=== PATIENT | female | born 1960 | race Asian ===

== ENCOUNTER 2017-03-04 21:39 | Emergency (ER) | payer OTHER ==
[~2017-03-04] VITALS: Ht 157.5 cm; Wt 54.4 kg
--- NOTE | 2017-03-04 21:40 | NUR ---
to bed 1 bib private ambulance from [facility] sent by pmd due to pt vomitted x1 per transport emt report. pt aaox2. pt chronic trache, O2@4L/ trache tube. no acute distress noted, resp even and unlabored. place pt on cardiac monitoring, continuous pox. pending er md edwards. skin warm, nondiaphoretic.
[2017-03-04 22:41] LABS: BASOPHILS % (AUTO) 0.2 % (0.0-2.0); HEMATOCRIT 28 % (33-45); HEMOGLOBIN 8.9 g/dL (11.5-14.8); LYMPHOCYTES # (AUTO) 0.7 /CMM (0.8-4.8); LYMPHOCYTES % (AUTO) 3.4 % (20.0-44.0); MEAN CORPUSCULAR HEMOGLOBIN 26 PG (26.0-33.0); MEAN CORPUSCULAR HGB CONC 32 g/dl (31.0-36.0); MEAN CORPUSCULAR VOLUME 80 fL (82-100); MONOCYTES % (AUTO) 10.6 % (2.0-12.0); NEUTROPHILS # (AUTO) 16.3 /CMM (1.8-8.9); NEUTROPHILS % (AUTO) 85.8 % (43.0-81.0); PLATELET COUNT (AUTO) 578 /CMM (150-450); RDW COEFFICIENT OF VARIATION 16.2 (11.5-15.0); RED BLOOD CELL COUNT(AUTO) 3.45 MIL/uL (4.0-5.2)
[2017-03-04 22:51] LABS: CALCIUM, SERUM 8.6 mg/dL (8.5-10.1); CREATININE 2.8 mg/dL (0.6-1.3); POTASSIUM 4.4 mmol/L (3.5-5.1)
[2017-03-04 22:54] LABS: INR 0.95 (0.87-1.13); PROTHROMBIN TIME 10.1 SECS (9.5-12.7)
[2017-03-04 22:56] LABS: ALBUMIN 2.6 g/dL (3.4-5.0); BILIRUBIN,DIRECT 0.1 mg/dL (0.0-0.2); BILIRUBIN,TOTAL 0.3 mg/dL (0.2-1.0); TOTAL PROTEIN, SERUM 7.9 g/dL (6.4-8.2)
[2017-03-04 23:09] LABS: BAND % (MANUAL) 5 % (0.0-5.0); LYMPHOCYTES % (MANUAL) 9 % (16-48); MONOCYTES % (MANUAL) 8 % (0-11.0); NEUTROPHILS % (MANUAL) 78 (42-76)
[2017-03-04 23:39] LABS: APPEARANCE,URINE CLOUDY (CLEAR); COLOR,URINE RED (YELLOW)
[2017-03-04 23:40] LABS: PH,URINE 7.5 (5.0-8.0); PROTEIN,URINE 2+ mg/dl (NEGATIVE); UGLUCOSE NEGATIVE (NEGATIVE)
[2017-03-04 23:41] LABS: BILIRUBIN,URINE NEGATIVE (NEGATIVE); BLOOD, URINE 3+ Ery/uL (NEGATIVE); KETONES,URINE NEGATIVE (NEGATIVE); UROBILINOGEN,URINE NORMAL EU/dL (0.2)
[2017-03-04 23:42] LABS: LEUKOCYTE ESTERASE ,URINE 3+ (NEGATIVE); NITRITE, URINE NEGATIVE (NEGATIVE)
[2017-03-04 23:44] LABS: RBC,URINE TOO NUMEROUS TO COUN /HPF (0-2)
[2017-03-04 23:45] LABS: BACTERIA,URINE Few /HPF (None Seen); SQUAMOUS EPITHELIAL CELL,UR Few /HPF (None Seen); WBC,URINE 51-80 /HPF (0-3)
[2017-03-05] MEDS ORDERED: LEVOFLOXACIN 750 MG /D5W 150ML PIGGYBACK IV ONE
--- NOTE | 2017-03-05 00:01 | NUR ---
PAGED DOCTOR SOAP MAKER FOR DOCTOR CAMPBELL STEARNS
--- NOTE | 2017-03-05 00:02 | NUR ---
er talking to dr. coppola regarding pt and advice to discharge [facility].
--- NOTE | 2017-03-05 00:06 | NUR ---
CALLED [facility] FOR BLS TRANSPORT ETA 30 MINUTES
[2017-03-05] MEDS ORDERED: LEVOFLOXACIN (750 MG) 750 MG TABLET ONE (00:09)
[2017-03-05] MEDS: LEVOFLOXACIN (750 MG) 750 MG TABLET GT SCH (00:15)
--- NOTE | 2017-03-05 00:50 | NUR ---
IV removed. Catheter intact and site benign. Pressure and 4x4 applied to site. No bleeding noted.
[2017-03-05 00:54] VITALS: BP 116/66
--- NOTE | 2017-03-05 00:56 | NUR ---
report called to [facility] staff edmundo. report given to [facility] emt transport.
== END 2017-03-05 00:57 | disposition home or self-care (01) ==
LOC: ER 21:46
DX: N12 Tubulo-interstitial nephritis, not specified as acute or chronic (principal); D72.829 Elevated white blood cell count, unspecified; I10 Essential (primary) hypertension; F25.9 Schizoaffective disorder, unspecified; E11.8 Type 2 diabetes mellitus with unspecified complications; J96.10 Chronic respiratory failure, unspecified whether with hypoxia or hypercapnia
CPT/HCPCS: 36415; 71010; 80048; 80076; 81001; 83690; 84484; 85025; 85730; 87086; 87186; 93005; 99285; A4606; Z7610; 81000-TC

== ENCOUNTER 2017-06-12 11:16 | Inpatient (IN) | payer OTHER ==
[~2017-06-12] VITALS: Ht 152.4 cm; Wt 37.2 kg
[2017-06-12] VITALS (37 sets, daily range): BP systolic 63–136; BP diastolic 38–72
--- NOTE | 2017-06-12 11:20 | NUR ---
NOMI FROM [facility] DT LOW BLOOD PRESSURE AND EPISODES OF LOW O2 SATURATION. PATIENT IS RECEIVED AWAKE, NON VERBAL. APPEARS IN NO APPARENT DISTRESS. O2 DEPENDEDNT THRU TRACHEOSTOMY. GT NOTED INTACT. VSS
--- NOTE | 2017-06-12 11:35 | NUR ---
BARREL ROLLER OPERATOR AT BS
--- NOTE | 2017-06-12 11:36 | NUR ---
( 16) FR STRAIGHT catheter inserted per sterile protocal. Immediate output (200 )ML of urine, color (YELLOW ), clarity (CLEAR)
[2017-06-12 11:39] LABS: APPEARANCE,URINE Cloudy (CLEAR); BILIRUBIN,URINE Negative (NEGATIVE); BLOOD, URINE Moderate Ery/uL (NEGATIVE); COLOR,URINE Yellow (YELLOW); KETONES,URINE Negative (NEGATIVE); LEUKOCYTE ESTERASE ,URINE Large (NEGATIVE); NITRITE, URINE Negative (NEGATIVE); PH,URINE 6.5 (5.0-8.0); PROTEIN,URINE 30 mg/dl (NEGATIVE); UGLUCOSE Negative (NEGATIVE); UROBILINOGEN,URINE 0.2 EU/dL (0.2)
[2017-06-12] MEDS ORDERED: INSU100I26 SQ (11:46)
[2017-06-12] MEDS ORDERED: IPRA3AMP IH ×2 (11:46)
[2017-06-12] MEDS ORDERED: LABE100T GT (11:46)
[2017-06-12] MEDS ORDERED: FENO145T GT (11:46)
[2017-06-12] MEDS ORDERED: MAGN400O6 GT (11:46)
[2017-06-12] MEDS ORDERED: ASCO500S2 GT (11:46)
[2017-06-12] MEDS ORDERED: PRAV40TA3 GT (11:46)
[2017-06-12] MEDS ORDERED: ACET650S26 GT (11:46)
[2017-06-12] MEDS ORDERED: NUT.237L30 GT (11:46)
[2017-06-12] MEDS ORDERED: FOLI1TAB16 GT (11:46)
[2017-06-12] MEDS ORDERED: CHOL100044 GT (11:46)
[2017-06-12] MEDS ORDERED: NA P133E RC (11:46)
[2017-06-12] MEDS ORDERED: VITA1TAB56 GT (11:46)
[2017-06-12] MEDS ORDERED: FERR300L GT (11:46)
[2017-06-12] MEDS ORDERED: ASPI81TA2 GT (11:46)
[2017-06-12] MEDS ORDERED: BISA10SU8 RC (11:46)
[2017-06-12] MEDS ORDERED: BENA10TA2 GT (11:46)
[2017-06-12 12:11] LABS: ALANINE AMINOTRANSFERASE 22 U/L (12-78); ALBUMIN 1.8 g/dL (3.4-5.0); ALKALINE PHOSPHATASE 81 U/L (46-116); ASPARTATE AMINOTRANSFERASE 37 U/L (15-37); BILIRUBIN,DIRECT 0.1 mg/dL (0.0-0.2); BILIRUBIN,TOTAL 0.2 mg/dL (0.2-1.0); CARBON DIOXIDE 21 mmol/L (21-32); CHLORIDE 96 mmol/L (98-107); CREATININE 3.2 mg/dL (0.6-1.3); GLUCOSE 102 mg/dL (74-106); POTASSIUM 4.3 mmol/L (3.5-5.1); SODIUM SERUM 130 mmol/L (136-145); TOTAL PROTEIN, SERUM 6.3 g/dL (6.4-8.2); UREA NITROGEN, BLOOD 50 mg/dL (7-18)
[2017-06-12 12:13] LABS: TROPONIN I < 0.017 ng/mL (0.00-0.056)
[2017-06-12 12:18] LABS: BACTERIA,URINE Many /HPF (None Seen); SQUAMOUS EPITHELIAL CELL,UR Moderate /HPF (None Seen); WBC,URINE TOO NUMEROUS TO COUN /HPF (0-3)
[2017-06-12 12:31] LABS: LYMPHOCYTES # (AUTO) 1.2 /CMM (0.8-4.8); LYMPHOCYTES % (AUTO) 2.2 % (20.0-44.0); MEAN CORPUSCULAR HEMOGLOBIN 26 PG (26.0-33.0); MEAN CORPUSCULAR HGB CONC 32 g/dl (31.0-36.0); MEAN CORPUSCULAR VOLUME 82 fL (82-100); MONOCYTES # (AUTO) 1.2 /CMM (0.1-1.30); MONOCYTES % (AUTO) 2.3 % (2.0-12.0); NEUTROPHILS # (AUTO) 49.3 /CMM (1.8-8.9); NEUTROPHILS % (AUTO) 95.5 % (43.0-81.0); PLATELET COUNT (AUTO) 651 /CMM (150-450); RDW COEFFICIENT OF VARIATION 16.5 (11.5-15.0); RED BLOOD CELL COUNT(AUTO) 2.41 MIL/uL (4.0-5.2)
[2017-06-12 12:41] LABS: HEMATOCRIT 20 % (33-45); HEMOGLOBIN 6.3 g/dL (11.5-14.8); WHITE BLOOD COUNT (AUTO) 51.6 K/uL (4.3-11.0)
[2017-06-12 12:59] LABS: BAND % (MANUAL) 6 % (0.0-5.0); LYMPHOCYTES % (MANUAL) 3 % (16-48); MONOCYTES % (MANUAL) 4 % (0-11.0); NEUTROPHILS % (MANUAL) 87 (42-76)
--- NOTE | 2017-06-12 13:00 | NUR ---
CALLED DR CAMPBELL WALTER OFFICE, WAS PAGED.
[2017-06-12 13:05] LABS: INR 1.17 (0.87-1.13); PROTHROMBIN TIME 12.3 SECS (9.5-12.7)
--- NOTE | 2017-06-12 13:52 | NUR ---
PAGED DR MALCOLM FOR ADMISSION
--- NOTE | 2017-06-12 14:22 | NUR ---
CALLED [facility]G SUP NELIDA FOR PICC
--- NOTE | 2017-06-12 14:23 | NUR ---
GAVE REPORT TO [facility] ICU ROOM [address] CHARLES ADMITTING
--- NOTE | 2017-06-12 15:10 | NUR ---
ICU INITIAL NOTE RECEIVED REPORT FROM ER, RECEIVED PT AWAKE, A/O X SELF, ABLE TO FOLLOW SIMPLE COMMANDS, PT IS ON COOL AEROSOL 28%, PORTEX # 7, SATING WELL, PT IS ON BEDSIDE MONITOR SHOWING ST, NO C/O OF CHEST PAIN OR DISCOMFORT AT THIS TIME, PT HAS GTUBE INTACT/PATENT, FLUSHING WELL, NPO AT THIS TIME, PT IS NOTED WITH SKIN ISSUES, PHOTOS TAKEN AND PUT IN CHART, PT HAS R WRIST #20G,SL L HAND #22G, SL, C/D/I/PATENT,FLUSHING WELL, NO S/S OF INFECTION/ INFILTRATION NOTED AT THIS TIME, PER MD ORDER NO SCD,ALL SAFETY MEASURES IN PLACE AT ALL TIMES, CALL LIGHT WITHIN EASY REACH, WILL MONITOR PT CLOSELY FOR CHANGES
--- NOTE | 2017-06-12 16:00 | NUR ---
ICU NOTE CONSENT OBTAINED FROM MIRIAN HANSON PER TELEPHONE, PT UNABLE TO GIVE CONSENT
[2017-06-12 17:09] LABS: ABG BASE EXCESS -5.6 mmol/L; ABG OXYGEN SATURATION 97.6 % (92.0-98.5); ABG PCO2 31.7 mmHg (35.0-45.0); ABG PO2 111.2 mmHg (75.0-100.0); COHb 0.9 % (0.5-1.5); MetHb 1.3 % (0.0-1.5); O2Hb 95.5 % (94.0-97.0); SITE, ABG Right Brachial; VENT MODE, BG 28% COOL AEROSOL
[2017-06-12 18:15] LABS: BASOPHILS % (AUTO) 0.1 % (0.0-2.0); EOSINOPHILS % (AUTO) 0.4 % (0.0-6.0); HEMATOCRIT 23 % (33-45); LYMPHOCYTES # (AUTO) 1.3 /CMM (0.8-4.8); LYMPHOCYTES % (AUTO) 15.5 % (20.0-44.0); MEAN CORPUSCULAR HEMOGLOBIN 26 PG (26.0-33.0); MEAN CORPUSCULAR HGB CONC 31 g/dl (31.0-36.0); MEAN CORPUSCULAR VOLUME 83 fL (82-100); MONOCYTES % (AUTO) 0.3 % (2.0-12.0); NEUTROPHILS % (AUTO) 83.7 % (43.0-81.0); PLATELET COUNT (AUTO) 706 /CMM (150-450); RDW COEFFICIENT OF VARIATION 17.1 (11.5-15.0); RED BLOOD CELL COUNT(AUTO) 2.74 MIL/uL (4.0-5.2); WHITE BLOOD COUNT (AUTO) 8.3 K/uL (4.3-11.0)
--- NOTE | 2017-06-12 18:49 | NUR ---
ICU NOTE PT TEMP 101.5 ORAL, ADMINISTERED TYLENOL, COOLING MEASURES IN PLACE, WILL MONITOR CLOSELY
--- NOTE | 2017-06-12 20:00 | NUR ---
TUBING MILL SETTER RCD ORDER FROM DR CARLSON TO INSERT CENTRAL LINE PICC LINE WAS UNABLE TO BE INSERTED D/T BLOACKAGE; PROCEED WITH 2 UNITS PRBC ONCE READY; PENDING D/T ANTIBODIES.
[2017-06-13] VITALS (88 sets, daily range): BP systolic 78–142; BP diastolic 30–73
--- NOTE | 2017-06-13 03:15 | NUR ---
GLASS ETCHER HELPER TWO UNITS PRBC ADMINISTERED; PT TOLERATED WELL. CONTINUE TO MONITOR.
[2017-06-13 04:45] LABS: HEMATOCRIT 29 % (33-45); HEMOGLOBIN 9.4 g/dL (11.5-14.8); LYMPHOCYTES # (AUTO) 0.8 /CMM (0.8-4.8); LYMPHOCYTES % (AUTO) 1.6 % (20.0-44.0); MEAN CORPUSCULAR HEMOGLOBIN 28 PG (26.0-33.0); MEAN CORPUSCULAR HGB CONC 33 g/dl (31.0-36.0); MEAN CORPUSCULAR VOLUME 84 fL (82-100); MONOCYTES # (AUTO) 0.5 /CMM (0.1-1.30); NEUTROPHILS # (AUTO) 48.5 /CMM (1.8-8.9); NEUTROPHILS % (AUTO) 97.4 % (43.0-81.0); PLATELET COUNT (AUTO) 440 /CMM (150-450); RDW COEFFICIENT OF VARIATION 15.9 (11.5-15.0); RED BLOOD CELL COUNT(AUTO) 3.42 MIL/uL (4.0-5.2)
[2017-06-13 05:19] LABS: WHITE BLOOD COUNT (AUTO) 49.8 K/uL (4.3-11.0)
[2017-06-13 05:29] LABS: ALANINE AMINOTRANSFERASE 24 U/L (12-78); ALBUMIN 1.6 g/dL (3.4-5.0); ALKALINE PHOSPHATASE 94 U/L (46-116); ASPARTATE AMINOTRANSFERASE 41 U/L (15-37); BILIRUBIN,TOTAL 0.6 mg/dL (0.2-1.0); CALCIUM, SERUM 7.4 mg/dL (8.5-10.1); CARBON DIOXIDE 17 mmol/L (21-32); CHLORIDE 102 mmol/L (98-107); CREATININE 3.1 mg/dL (0.6-1.3); GLUCOSE 116 mg/dL (74-106); POTASSIUM 3.6 mmol/L (3.5-5.1); SODIUM SERUM 136 mmol/L (136-145); TOTAL PROTEIN, SERUM 6.1 g/dL (6.4-8.2); UREA NITROGEN, BLOOD 48 mg/dL (7-18)
[2017-06-13 05:42] LABS: BAND % (MANUAL) 16 % (0.0-5.0); LYMPHOCYTES % (MANUAL) 4 % (16-48); MONOCYTES % (MANUAL) 5 % (0-11.0); NEUTROPHILS % (MANUAL) 75 (42-76)
--- NOTE | 2017-06-13 05:48 | NUR ---
RN;ICU: PT RECEIVED TWO UNITS OF PRBC'S PER MD ORDERS FROM ER, WHICH WAS ALSO DISCUSSED WITH ADMITTING MD, WHO AGREES WITH STAT 2 UNITS OF PRBC (ACTIVE BLEED). MD ALSO AWARE OF POSITIVE STOOL OB RESULT. MD ORDERS FOLLOWED. PT RESPONDED WELL TO 2 UNIT PRBC, WITH IMPROVED HGB/HCT, HR SINUS RHYTHM AND BLOOD PRESSURE WNL ON MINIMAL LEVOPHED. ABLE TO WEAN OFF LEVOPHED PER PROTOCOL PT BP PERMITS. PT NOW ON LEVOPHED 12MCG/MIN. DR BLACKWOOD AWARE OF AM LABS. WILL CONTINUE TO MONITOR CLOSELY. FIRST UNIT OF PRBC UNABLE TO SCAN BARCODE IN EMR. BLOOD BANK STAFF MEMBER MAYRA CONTACTED AND MADE AWARE THAT BARCODE WILL NOT SCAN AND THAT THIS IS THE CORRECT UNIT VERIFIED BY TWO RN AT THE BEDSIDE WITH THE PATIENT. PER BLOOD BANK STAFF OK TO PERFORM OVERRIDE. BLOOD PRODUCT CHECKED AGAIN SEVERAL TIMES WITH PATIENT TO ENSURE PATIENT SAFETY. NO RX NOTED. PT TOLERATED PROCEDURE WELL.
--- NOTE | 2017-06-13 06:45 | NUR ---
PRODUCT OPERATIONS ASSOCIATE NO BLEEDING NOTED THROUGHOUT SHIFT.
[2017-06-13 07:20] LABS: TROPONIN I 0.192 ng/mL (0.00-0.056)
[2017-06-13 07:27] LABS: THYROID STIMULATING HORMONE 1.103 uIU/mL (0.358-3.74)
--- NOTE | 2017-06-13 07:34 | NUR ---
INITIAL GASOLINE TESTER NOTE RCVD PT RESPONSIVE TO PAINFUL STIMULI, SHOWING NO S/O DISTRESS/PAIN. SR ON TELE. T-PIECE IN PLACE WITH GOOD SATURATION. PALM IN PLACE DRAINING YELLOW URINE, PEG CLAMPED PLACEMENT VERIFIED BY AUSCULTATION/ASPIRATION. NO RESIDUAL OBSERVED. IV SITES C/D/I/PATENT. NO S/O INFILTRATION/PHLEBITIS OBSERVED IVF INFUSING. DRESSING ON MAU AND RIGHT GROIN AREA APPEAR BLOODY WILL MONITOR PT FOR BLEEDING. BED IN LOW AND LOCKED POSITION.
--- NOTE | 2017-06-13 07:50 | NUR ---
D/W DR BLACKWOOD QUESTION OF BICARB IV WHICH MD WANTS TO ORDER-WILL GET ABG AND D/W I.M. PH. WILL GET PULMON CONSULT. HAS BLACK BMS WITH KNOWN ANEMIA AND OCCULT BLOOD POSITVE STOOLS THEREFORE WILL CHECK ANOTHER STOOL FOR OB AND CHANGE KCL VIA PEG TO IVPB ROUTE. D/W LAB THE WBC RESULT INCONSISTENCIES-TECH TO RECHECK WBC RESULTS
[2017-06-13 08:03] LABS: IRON, SERUM 4 ug/dl (50-175); TOTAL IRON BINDING CAPACITY 204 ug/dl (250-450)
[2017-06-13 09:08] LABS: ABG BASE EXCESS -10.8 mmol/L; ABG OXYGEN SATURATION 97.6 % (92.0-98.5); ABG PCO2 25.7 mmHg (35.0-45.0); ABG PH 7.341 (7.350-7.450); ABG PO2 109.9 mmHg (75.0-100.0); AaDO2 59.4 mmHg; MetHb 0.8 % (0.0-1.5); O2Hb 96.8 % (94.0-97.0); SITE, ABG Left Radial; VENT MODE, BG 28% COOL AEROSOL
--- NOTE | 2017-06-13 09:10 | NUR ---
ABG ON T-TUBE/TRACH WITH PH 7.34 PCO2 26 PO2 110-WILL D/W I.M.
--- NOTE | 2017-06-13 09:17 | NUR ---
D/W DR GOLD MODI, ANION GAP 21. SEE ORDERS
--- NOTE | 2017-06-13 10:08 | NUR ---
EXTRACTOR PLANT OPERATOR NOTE DR. PHILLIPS IN UNIT INFORMED HIM THAT WHEEZING HEARD ON PT. BOLUS CONTINUED TO INFUSE PER DR. BLACKWOOD'S ORDER. PER DR. PHILLIPS STOP BOLUS AND CHANGE IVF TO LR. WILL CARRY ON ORDERS. ABG STABLE
--- NOTE | 2017-06-13 14:34 | NUR ---
RN NOTES RECEIVED A CALL FROM JOSE ([place]) REGARDING MICROBIOLOGY RESULT, PT POSITIVE FOR MRSA NARES. DR. MALCOLM NOTIFIED AND ORDER MADE.
[2017-06-13 16:07] LABS: APPEARANCE,URINE CLOUDY (CLEAR); BILIRUBIN,URINE NEGATIVE (NEGATIVE); BLOOD, URINE 3+ Ery/uL (NEGATIVE); COLOR,URINE YELLOW (YELLOW); KETONES,URINE NEGATIVE (NEGATIVE); LEUKOCYTE ESTERASE ,URINE 3+ (NEGATIVE); NITRITE, URINE NEGATIVE (NEGATIVE); PH,URINE 7.5 (5.0-8.0); PROTEIN,URINE TRACE mg/dl (NEGATIVE); UGLUCOSE NEGATIVE (NEGATIVE); UROBILINOGEN,URINE 0.2 EU/dL (0.2)
[2017-06-13 16:37] LABS: CREATININE, URINE 14.3 MG/DL (30.0-125.0); URINE TOTAL PROTEIN 59.6 mg/dL (0-11.9)
--- NOTE | 2017-06-13 18:28 | NUR ---
EMERGENCY MEDICINE PHYSICIAN NOTE PT REMAINS STABLE, TOLERATING T-PIECE, PALM DRAINING YELLOW URINE, G-TUBE PLACEMENT VERIFIED. CENTRAL LINE AND MIDLINE DRESSINGS CHANGED. IV SITES C/D/I/PATENT. NO S/O INFILTRATION/PHLEBITIS OBSERVED IVF INFUSING. PT REMAINS ON VASOPRESSORS. PT'S CARE WILL BE ENDORSED TO CANDY SPREADER RN FOR CONTINUITY OF CARE.
[2017-06-13 19:01] LABS: BACTERIA,URINE 4+ /HPF (None Seen); RBC,URINE 21-50 /HPF (0-2); SQUAMOUS EPITHELIAL CELL,UR 0-2 /HPF (None Seen); WBC,URINE 21-50 /HPF (0-3)
[2017-06-13 19:02] LABS: EOSINOPHIL,URINE None Seen
--- NOTE | 2017-06-13 19:53 | NUR ---
STUDY COORDINATOR. INITIAL ASSESSMENT. RECEIVED THE PT REST ON THE BED. TRACH INTACT. NON VERBAL. OPEN EYES. DOES NOT FOLLOW COMMANDS. PORTEX#7. OXYGEN T TUBE 28%. SAT 98%. NO ACUTE DISTRESS NOTED. DEAN OF STUDENT SERVICES SHOWING NSR. IV RT FEMORAL TRIPLE LUMEN LEVOPHED 4MCG/MIN, LR 150ML/H. HOB ELEVATED. GT CLAMPED/ NPO. FC PATENT. URUINE DRAINING. TURN AND REPOSITION Q2H. WILL CONTINUE TO MONITOR VITALS.
[2017-06-14] VITALS (49 sets, daily range): BP systolic 81–133; BP diastolic 44–105
--- NOTE | 2017-06-14 03:25 | NUR ---
INDUSTRIAL MAINTENANCE MILLWRIGHT. AM CARE. ORAL CARE, BED BATH GIVEN. LINEN CHANGED, REMAINING SAME OXYGEN TOLERATED WELL. SAT 98%. NO ACUTE DISTRESS NOTED. GALVANIZER SHOWING NSR. IV RT FEMORAL TRIPLE LUMEN. IVF RL 150ML/H, LEVOPHED 2MCG/MIN. GT CLAMPED. NPO. AFEBRILE. HOB ELEVATED. FC PATENT. URINE DRAINING. TURN AND REPOSITION Q2H. WILL CONTINUE TO MONITOR VITALS.
[2017-06-14 04:51] LABS: HEMATOCRIT 27 % (33-45); HEMOGLOBIN 9.1 g/dL (11.5-14.8); LYMPHOCYTES # (AUTO) 0.9 /CMM (0.8-4.8); LYMPHOCYTES % (AUTO) 2.4 % (20.0-44.0); MEAN CORPUSCULAR HEMOGLOBIN 27 PG (26.0-33.0); MEAN CORPUSCULAR HGB CONC 33 g/dl (31.0-36.0); MEAN CORPUSCULAR VOLUME 83 fL (82-100); MONOCYTES # (AUTO) 0.1 /CMM (0.1-1.30); MONOCYTES % (AUTO) 0.2 % (2.0-12.0); NEUTROPHILS # (AUTO) 37.3 /CMM (1.8-8.9); NEUTROPHILS % (AUTO) 97.4 % (43.0-81.0); PLATELET COUNT (AUTO) 353 /CMM (150-450); RDW COEFFICIENT OF VARIATION 17.3 (11.5-15.0)
[2017-06-14 05:10] LABS: ALBUMIN 1.5 g/dL (3.4-5.0); BILIRUBIN,TOTAL 0.3 mg/dL (0.2-1.0); CALCIUM, SERUM 7.9 mg/dL (8.5-10.1); CREATININE 2.5 mg/dL (0.6-1.3); MAGNESIUM 2.2 mg/dL (1.8-2.4); PHOSPHORUS 3.8 mg/dL (2.5-4.9); POTASSIUM 4.9 mmol/L (3.5-5.1)
[2017-06-14 05:15] LABS: THYROID STIMULATING HORMONE 1.464 uIU/mL (0.358-3.74); URIC ACID 7.5 mg/dL (2.6-7.2)
[2017-06-14 05:18] LABS: WHITE BLOOD COUNT (AUTO) 38.3 K/uL (4.3-11.0)
[2017-06-14 05:33] LABS: TROPONIN I 4.941 ng/mL (0.00-0.056)
[2017-06-14 06:04] LABS: BAND % (MANUAL) 28 % (0.0-5.0); LYMPHOCYTES % (MANUAL) 3 % (16-48); METAMYELOCYTES % 3 % (0-0); MYELOCYTES % 6 % (0-0); NEUTROPHILS % (MANUAL) 60 (42-76)
--- NOTE | 2017-06-14 06:51 | NUR ---
JOB TRAINING SUPERVISOR. PT BLOOD SUGAR 55. 50% DEXTROSE IVP . 30MIN LATER BLOOD SUGAR WAS 158. WILL CONTINUE TO MONITOR.
--- NOTE | 2017-06-14 07:35 | NUR ---
ALLIANCE MANAGER RECEIVED PATIENT FROM THE PREVIOUS SHIFT. PATIENT IS IN BED. RESTING COMFORTABLY. NO ACUTE DISTRESS NOTED. AFEBRILE. ON COOL AEROSOL. LEVOPHED AT 4 MCG AT THIS TIME. SINUS RHYTHM ON MONITOR. ALERT AND AWAKE X 3. WILL CONTINUE TO MONITOR AND PROVIDE CARE.
--- NOTE | 2017-06-14 20:00 | NUR ---
HISTORY TEACHER - NOTES - RECEIVED PATIENT FROM THE PREVIOUS SHIFT. PATIENT IS IN BED. RESTING COMFORTABLY. NO ACUTE DISTRESS NOTED. AFEBRILE. ON COOL AEROSOL. SINUS RHYTHM ON MONITOR. ALERT AND AWAKE X 3. WILL CONTINUE TO MONITOR AND PROVIDE CARE.
[2017-06-15] VITALS (58 sets, daily range): BP systolic 81–159; BP diastolic 44–85
--- NOTE | 2017-06-15 | NUR ---
PT STARTED TO BECOME MORE TACHYCARDIC AND IS COUGHING A LOT, PT WAS SUCTIONED MULTIPLE TIMES, WITH MINIMAL SECRETIONS. PT REPOSITIONED FOR COMFORT, WILL GIVE FULL BED BATH
[2017-06-15 02:49] LABS: ABG BASE EXCESS -8.6 mmol/L; ABG OXYGEN SATURATION 95.1 % (92.0-98.5); ABG PH 7.429 (7.350-7.450); ABG PO2 76.9 mmHg (75.0-100.0); AaDO2 96.8 mmHg; COHb 0.3 % (0.5-1.5); MetHb 1.1 % (0.0-1.5); O2Hb 93.8 % (94.0-97.0); SITE, ABG Left Radial; VENT MODE, BG COOL AEROSOL
--- NOTE | 2017-06-15 04:00 | NUR ---
FULL CHG BED BATH GIVEN, ORAL CARE GIVEN, ALL LINENS CHANGED, PT TURNED AND REPOSITIONED, SOME LIQUID STOOL NOTED
--- NOTE | 2017-06-15 04:05 | NUR ---
PT BP LOW AFTER MULTIPLE TIMES RECHECKING, WILL START LEVO AT 2 MCG/MIN
[2017-06-15 04:50] LABS: HEMATOCRIT 25 % (33-45); HEMOGLOBIN 8.2 g/dL (11.5-14.8); LYMPHOCYTES # (AUTO) 0.5 /CMM (0.8-4.8); LYMPHOCYTES % (AUTO) 1.7 % (20.0-44.0); MEAN CORPUSCULAR HEMOGLOBIN 27 PG (26.0-33.0); MEAN CORPUSCULAR HGB CONC 33 g/dl (31.0-36.0); MEAN CORPUSCULAR VOLUME 83 fL (82-100); MONOCYTES # (AUTO) 0.4 /CMM (0.1-1.30); MONOCYTES % (AUTO) 1.3 % (2.0-12.0); NEUTROPHILS # (AUTO) 27.6 /CMM (1.8-8.9); PLATELET COUNT (AUTO) 260 /CMM (150-450); RDW COEFFICIENT OF VARIATION 18.2 (11.5-15.0); RED BLOOD CELL COUNT(AUTO) 3.02 MIL/uL (4.0-5.2); WHITE BLOOD COUNT (AUTO) 28.5 K/uL (4.3-11.0)
[2017-06-15 05:09] LABS: BILIRUBIN,TOTAL 0.3 mg/dL (0.2-1.0); CALCIUM, SERUM 7.7 mg/dL (8.5-10.1); CREATININE 2.3 mg/dL (0.6-1.3); POTASSIUM 4.4 mmol/L (3.5-5.1); TOTAL PROTEIN, SERUM 5.5 g/dL (6.4-8.2)
[2017-06-15 05:23] LABS: ALBUMIN 1.3 g/dL (3.4-5.0)
[2017-06-15 05:45] LABS: BAND % (MANUAL) 6 % (0.0-5.0); LYMPHOCYTES % (MANUAL) 1 % (16-48); MONOCYTES % (MANUAL) 1 % (0-11.0); NEUTROPHILS % (MANUAL) 92 (42-76)
--- NOTE | 2017-06-15 07:57 | NUR ---
WOUND CARE CONSULT: PT NOT TURNED FOR SKIN ASSESSMENT DUE TO RESPIRATORY ISSUES PER RN AND RT. PT ON FIRST STEP MATTRESS. REVIEWED PHOTO DOCUMENTATION WHICH SHOWS AT LEAST PARTIAL THICKNESS OPEN AREA TO UPPER BACK AND REDDENED SACRAL AREA. RECOMMENDATIONS MADE FOR WOUND CARE AND SKIN PROTECTION BASED ON PHOTOS AND NURSING DOCUMENTATION. DISCUSSED WITH NURSING STAFF. ALL SKIN PROTECTION MEASURES IN PLACE. WILL SEE PRN. IN AGREEMENT WITH PLAN OF CARE.
--- NOTE | 2017-06-15 12:45 | NUR ---
AUGER PRESS OPERATOR- Pt's SBP has maintained >90, Levophed stopped. Will continue to monitor.
--- NOTE | 2017-06-15 19:43 | NUR ---
PT RECEIVED TRACHED WITH PORTEX 7 ON COOL AEROSOL 28%. SX'D FOR SML AMT OF THIN WHITE SECRETIONS. PT RECEIVING Q6 BREATHING TX. WILL CONTINUE TO MONITOR.
[2017-06-16] VITALS (29 sets, daily range): BP systolic 93–144; BP diastolic 54–87
[2017-06-16 04:51] LABS: EOSINOPHILS % (AUTO) 0.2 % (0.0-6.0); HEMATOCRIT 25 % (33-45); HEMOGLOBIN 8.3 g/dL (11.5-14.8); LYMPHOCYTES # (AUTO) 0.5 /CMM (0.8-4.8); LYMPHOCYTES % (AUTO) 3.1 % (20.0-44.0); MEAN CORPUSCULAR HEMOGLOBIN 28 PG (26.0-33.0); MEAN CORPUSCULAR HGB CONC 34 g/dl (31.0-36.0); MEAN CORPUSCULAR VOLUME 82 fL (82-100); MONOCYTES # (AUTO) 0.5 /CMM (0.1-1.30); MONOCYTES % (AUTO) 3.5 % (2.0-12.0); NEUTROPHILS # (AUTO) 13.8 /CMM (1.8-8.9); NEUTROPHILS % (AUTO) 93.2 % (43.0-81.0); PLATELET COUNT (AUTO) 194 /CMM (150-450); RDW COEFFICIENT OF VARIATION 17.5 (11.5-15.0); RED BLOOD CELL COUNT(AUTO) 3.02 MIL/uL (4.0-5.2); WHITE BLOOD COUNT (AUTO) 14.9 K/uL (4.3-11.0)
[2017-06-16 05:06] LABS: BILIRUBIN,TOTAL 0.3 mg/dL (0.2-1.0); CALCIUM, SERUM 8.1 mg/dL (8.5-10.1); CREATININE 2.2 mg/dL (0.6-1.3); POTASSIUM 4.3 mmol/L (3.5-5.1); TOTAL PROTEIN, SERUM 5.7 g/dL (6.4-8.2)
[2017-06-16 05:19] LABS: ALBUMIN 1.3 g/dL (3.4-5.0)
[2017-06-16 06:10] LABS: *SPE A/G RATIO 0.6 (0.7-1.7); *SPE ALBUMIN 1.8 g/dL (2.9-4.4); *SPE ALPHA-1-GLOBULIN 0.4 g/dL (0.0-0.4); *SPE ALPHA-2-GLOBULIN 1.1 g/dL (0.4-1.0); *SPE BETA GLOBULIN 0.8 g/dL (0.7-1.3); *SPE GLOBULIN, TOTAL 3.2 g/dL (2.2-3.9); *SPE M-SPIKE Not Observed g/dL (Not Observed); *SPEGAMMA GLOBULIN 0.9 g/dL (0.4-1.8)
--- NOTE | 2017-06-16 07:56 | NUR ---
WOUND CARE CONSULT: PT SEEN FOR SKIN ASSESSMENT. PT NOTED TO HAVE SKIN ISSUES INCLUDING LEFT UPPER BACK STAGE 2 ULCER AND SACRAL INTACT DEEP TISSUE INJURY, PRESENT ON ADMISSION. UPON REVIEW OF ADMISSION PHOTOS, DARK RED/MAROON COLOR NOTED IN ADMISSION PHOTO OF SACRUM. RECOMMENDATIONS MADE FOR SKIN PROTECTION AND WOUND CARE. DISCUSSED WITH NURSING STAFF. PT ON FIRST STEP MATTRESS. ALL SKIN PROTECTION MEASURES IN PLACE. MD IN AGREEMENT WITH PLAN OF CARE. Addendum: 06/16/17 at 0758 by MATHEW FERNANDES WNDNU Amended: Links added.
--- NOTE | 2017-06-16 09:09 | NUR ---
SEARCH ENGINE OPTIMIZATION SPECIALIST NOTE 0720: Received patient awake, alert but non-vebal. Able to follow commands. With trache to cool aerosol, tolerated well, no respiratory distress noted at this time. SR 90's on the monitor. On isolation precaution for MRSA nares, maintained and observed. Abarca cath intact, noted with minimal amount of yellow urine drained to BSD. GT intact, feeding tolerated well, no residuals. No S/S GIB at this time. Abdomen noted non tender. MAU PICC intact. 0900: S/E by Dr. Alva, aware for the ABG, no new order at this time.
--- NOTE | 2017-06-16 09:23 | NUR ---
INTERN BRAND NOTE S/E by Dr. Porras, with order for FNS consult for feeding rate.
[2017-06-16 09:44] LABS: ABG BASE EXCESS -4.9 mmol/L; ABG OXYGEN SATURATION 96.4 % (92.0-98.5); ABG PCO2 31.6 mmHg (35.0-45.0); ABG PH 7.401 (7.350-7.450); ABG PO2 91.2 mmHg (75.0-100.0); AaDO2 71.2 mmHg; COHb 0.4 % (0.5-1.5); MetHb 0.8 % (0.0-1.5); O2Hb 95.2 % (94.0-97.0); SITE, ABG Right Brachial; VENT MODE, BG 28% C/A
--- NOTE | 2017-06-16 13:56 | NUR ---
CLINICAL ASSESSMENT MANAGER NOTE S/E by Dr. Scales, with order to start on Lasix. S/E by Dr. Peterson, with order for Crys long MD said to keep in ICU for tonight.
[2017-06-16 14:15] LABS: PTH, INTACT 136 pg/mL (15-65)
--- NOTE | 2017-06-16 14:16 | NUR ---
DYE MAKER NOTE Spoke with employment case manager re: Crys edwards, said they will F/U.
--- NOTE | 2017-06-16 18:29 | NUR ---
ELECTRONICS COMPUTER MECHANIC NOTE Discontinued Abarca cath as ordered by MD, patient tolerated procedure well.
--- NOTE | 2017-06-16 18:30 | NUR ---
HARD METALS HAND ENGRAVER NOTE Patient on 65mL/hr GT feeding at this time, tolerated. With increments of 10/hr as tolerated. No residuals. Kept HOB elevated.
--- NOTE | 2017-06-16 19:30 | NUR ---
WALLPAPER HANGER HELPER RCD PT W/DX UTI, ANEMIA; PT IS FULL CODE ON ISOLATION PRECAUTIONS FOR MRSA NARES. PT IS AWAKE; NON VERBAL. NSR ON MONITOR. PORTEX 7 ON COOL AEROSOL 28%. SACRAL /BUTTOCKS REDNESS WITH MEPILEX IN PLACE; WOUND TO LEFT UPPER BACK W/MEPILEX IN PLACE. MAU PICC PATENT AND FLUSHING WELL. ORAL CARE RENDERED. REPOSITIONED PT. HOB ELEVATED. BED LOCKED AND IN LOW POSITION. CONTINUE TO MONITOR. PT PENDING FOR LIBORIO MEJIA.
--- NOTE | 2017-06-16 20:10 | NUR ---
PT RECEIVED TRACHED WITH PORTEX 7 ON COOL AEROSOL 28%. NO RESP DISTRESS NOTED. SX'D FOR SML AMT OF THIN WHITE SECRETIONS. PT RECEIVING Q6 BREATHING TX. WILL CONTINUE TO MONITOR.
[2017-06-17] VITALS (27 sets, daily range): BP systolic 93–138; BP diastolic 59–91
[2017-06-17 04:54] LABS: BASOPHILS % (AUTO) 0.1 % (0.0-2.0); EOSINOPHILS % (AUTO) 0.3 % (0.0-6.0); HEMATOCRIT 24 % (33-45); HEMOGLOBIN 7.9 g/dL (11.5-14.8); LYMPHOCYTES # (AUTO) 0.9 /CMM (0.8-4.8); LYMPHOCYTES % (AUTO) 10.2 % (20.0-44.0); MEAN CORPUSCULAR HEMOGLOBIN 27 PG (26.0-33.0); MEAN CORPUSCULAR HGB CONC 33 g/dl (31.0-36.0); MEAN CORPUSCULAR VOLUME 83 fL (82-100); MONOCYTES % (AUTO) 10.6 % (2.0-12.0); NEUTROPHILS # (AUTO) 7.3 /CMM (1.8-8.9); NEUTROPHILS % (AUTO) 78.8 % (43.0-81.0); PLATELET COUNT (AUTO) 139 /CMM (150-450); RDW COEFFICIENT OF VARIATION 18.1 (11.5-15.0); RED BLOOD CELL COUNT(AUTO) 2.91 MIL/uL (4.0-5.2); WHITE BLOOD COUNT (AUTO) 9.3 K/uL (4.3-11.0)
[2017-06-17 05:28] LABS: BILIRUBIN,TOTAL 0.1 mg/dL (0.2-1.0); CREATININE 2.2 mg/dL (0.6-1.3); POTASSIUM 4.1 mmol/L (3.5-5.1); TOTAL PROTEIN, SERUM 5.7 g/dL (6.4-8.2)
[2017-06-17 05:35] LABS: ALBUMIN 1.3 g/dL (3.4-5.0)
--- NOTE | 2017-06-17 08:39 | NUR ---
CIRCUIT BREAKER MECHANIC NOTE 0720: Received patient awake, alert to name. No respiratory distress noted. With trache to cool aerosol tolerated well. Noted with moderate amount of castro thick secretions when suctioned. With GT intact, feeding tolerated well. No residuals noted. No S/S hypo/hyperglycemia noted at this time. Kept HOB elevated. MAU PICC intact. ST 100's on the monitor. Afebrile at this time. S/E by Dr. Hernandez, said may transfer to [place]. Awaiting PCP. On isolation precaution for MRSA nares maintained and observed. 0830: No any significant changes noted at this time. Will continue to monitor.
[2017-06-17 10:55] LABS: BAND % (MANUAL) 3 % (0.0-5.0); LYMPHOCYTES % (MANUAL) 9 % (16-48); MONOCYTES % (MANUAL) 8 % (0-11.0); NEUTROPHILS % (MANUAL) 80 (42-76)
--- NOTE | 2017-06-17 14:02 | NUR ---
STATION TENDER NOTE S/E by Dr. Peterson, with order to may transfer patient to Tele, awaiting Crys's response for the eval. aware for the Hgb 7.9, no new order at this time. Continue Ferrlicit for now.
--- NOTE | 2017-06-17 18:10 | NUR ---
TELEPHONE REPAIRER NOTE Transferred patient to [facility] via bed and ACLS protocol. No any changes noted. Endorsed to [facility] for KI.
--- NOTE | 2017-06-17 18:14 | NUR ---
RN NOTES RECEIVED PT FROM DERRICK HANDJOSIE ESPINAL IN STABLE CONDITION. PT CHRONIC VENT ON COOL AEROSOL, NON VERBAL, A&OX1 TO NAME ONLY. NO SOB OR DISTRESS NOTED SR ON THE MONITOR HR IN THE 90S. INCONTINENT WITH DIAPER IN PLACE. R UPPER ARM MIDLINE DRESSING DRY AND INTACT NO IVF. GLYTROL RUNNING AT 65ML/HR NO RESIDUAL. ON KCI MATTRESS. SIDE RAILS UPX3, CALL LIGHT WITHIN REACH, BED LOCKED AND IN LOWEST POSITION WILL ENDORSE TO ONCOMING SHIFT.
--- NOTE | 2017-06-17 19:39 | NUR ---
RN NOTES PATIENT AWAKE ALERT X 1 ON STRICTLY ISOLATION FOR MRSA NARES. NO ACUTE RESP DISTRESS. WITH TRACH PORTEX 7 FIO2 28% SR ON TELE MONITOR TOLERATED WELL SATING 99% . WITH GTF GLYTROL @ 65 CC/HR INTACT AND PATENT. IV SITE ON MAU MIDLINE INTACT AND PATENT FLUSHED WELL. TURNED AND REPOSITIONED PT COMFORTABLE. KEPT CLEAN AND DRY. WILL CONTINUE TO MONITOR.
--- NOTE | 2017-06-17 19:50 | NUR ---
RT TX HELD DUE TO HR BEING > 120 . NO SON OR DISTRESS NOTED. RN AWARE
[2017-06-18] VITALS: BP 100/61
[2017-06-18 04:00] VITALS: BP 110/67
--- NOTE | 2017-06-18 06:15 | NUR ---
RN NOTES PT ASLEEP WELL ON BED WITH EPISODE OF ST 100'S SUCTIONED WITH THICK WHITISH SECRETION. TRACH AND C/A TOLERATED WELL. AFEBRILE. NO ACUTE RESP DISTRESS. AFEBRILE. VS WNL. INCONTINENT CARE RENDERED.OFFLOADED EXT WITH PILLOWS. TURNED AND REPOSITIONED PROTOCOL AND PRN. KEPT PT CLEAN AND DRY WILL ENDORSED CONTINUITY OF CARE TO AM NURSE.
[2017-06-18 06:55] LABS: BASOPHILS % (AUTO) 0.1 % (0.0-2.0); EOSINOPHILS # (AUTO) 0.1 /CMM (0.0-0.7); EOSINOPHILS % (AUTO) 1.2 % (0.0-6.0); HEMATOCRIT 27 % (33-45); HEMOGLOBIN 8.8 g/dL (11.5-14.8); LYMPHOCYTES % (AUTO) 9.6 % (20.0-44.0); MEAN CORPUSCULAR HEMOGLOBIN 28 PG (26.0-33.0); MEAN CORPUSCULAR HGB CONC 33 g/dl (31.0-36.0); MEAN CORPUSCULAR VOLUME 83 fL (82-100); MONOCYTES # (AUTO) 0.1 /CMM (0.1-1.30); MONOCYTES % (AUTO) 0.5 % (2.0-12.0); NEUTROPHILS # (AUTO) 9.2 /CMM (1.8-8.9); NEUTROPHILS % (AUTO) 88.6 % (43.0-81.0); PLATELET COUNT (AUTO) 137 /CMM (150-450); RDW COEFFICIENT OF VARIATION 17.8 (11.5-15.0); RED BLOOD CELL COUNT(AUTO) 3.22 MIL/uL (4.0-5.2); WHITE BLOOD COUNT (AUTO) 10.4 K/uL (4.3-11.0)
[2017-06-18 07:20] LABS: ALBUMIN 1.5 g/dL (3.4-5.0); BILIRUBIN,TOTAL 0.2 mg/dL (0.2-1.0); CALCIUM, SERUM 8.4 mg/dL (8.5-10.1); CREATININE 2.3 mg/dL (0.6-1.3); POTASSIUM 4.2 mmol/L (3.5-5.1); TOTAL PROTEIN, SERUM 6.5 g/dL (6.4-8.2)
[2017-06-18 08:00] VITALS: BP 114/70
--- NOTE | 2017-06-18 09:50 | NUR ---
TEL RN NOTES PATIENT ASLEEP, EASILY ABUSABLE. RESPIRATIONS EVEN. WITH TRACH TO COLLER AEROSOL 28%.ALL NEEDS ATTENDED. REPOSITIONED Q 2 HOURS. SAFETY PRECAUTIONS AND COMFORT MEASURES IN PLACE. RT AT BEDSIDE . TRACH SUCTION DONE, AMBU NAG AT BEDSIDE, ON TELE MONITOR ST 112 , BED IN LOWEST AND LOCKED POSITION CALL LIGHT WITHIN REACH , WITH GTUBE FEEDING ORDERED, NO RESIDUAL NOTED , KEEP HOB ELEVATED AT ALL TIME , MAU PICC LINE , WILL CONT TO MONITOR CLOSELY
--- NOTE | 2017-06-18 10:51 | NUR ---
MS RN NOTE T 100.0 COOLING MEASURE PROVIDED
--- NOTE | 2017-06-18 12:54 | NUR ---
MS RN NOTE T 98.9 NOW AND UNABLE TO TO GIVE COVERAGE WITH INSULIN 2 UNITS, INSULIN NOT AVAILABLE AT THIS TIME, PHARMACIST NOTIFIED , SPOKE WITH SORAYA ,STATED THAT WILL SEND SOON, WILL F\U
--- NOTE | 2017-06-18 15:05 | NUR ---
MS RN NOTE ON BREATHING TX , ALL NEEDS ATTENDED ,MADE A BM ,KEEP CLEAN DRY WILL CONT TO MONITOR CLOSELY , FAMILY AT BEDSIDE.TURN REPOSITION Q2 HOUR
[2017-06-18 16:00] VITALS: BP 132/73
--- NOTE | 2017-06-18 17:50 | NUR ---
MS RN NOTE SEEN BY DR STEARNS , AWARE THAT EARLIER T 100.0 AND LATEST ONE IS 98.0, WILL F\U
--- NOTE | 2017-06-18 18:35 | NUR ---
MS RN NOTE ALL NEEDS ATTENDED KEEP CLEAN DRY , TRACH SUCTION DONE WILL CONT TO MONITOR CLOSELY
[2017-06-18 20:00] VITALS: BP 112/63
[2017-06-19 04:00] VITALS: BP 100/59
[2017-06-19 06:34] LABS: BASOPHILS % (AUTO) 0.1 % (0.0-2.0); EOSINOPHILS # (AUTO) 0.1 /CMM (0.0-0.7); EOSINOPHILS % (AUTO) 0.7 % (0.0-6.0); HEMATOCRIT 25 % (33-45); HEMOGLOBIN 8.4 g/dL (11.5-14.8); LYMPHOCYTES % (AUTO) 7.8 % (20.0-44.0); MEAN CORPUSCULAR HEMOGLOBIN 28 PG (26.0-33.0); MEAN CORPUSCULAR HGB CONC 33 g/dl (31.0-36.0); MEAN CORPUSCULAR VOLUME 83 fL (82-100); MONOCYTES # (AUTO) 0.9 /CMM (0.1-1.30); MONOCYTES % (AUTO) 7.1 % (2.0-12.0); NEUTROPHILS # (AUTO) 10.7 /CMM (1.8-8.9); NEUTROPHILS % (AUTO) 84.3 % (43.0-81.0); PLATELET COUNT (AUTO) 145 /CMM (150-450); RED BLOOD CELL COUNT(AUTO) 3.03 MIL/uL (4.0-5.2); WHITE BLOOD COUNT (AUTO) 12.7 K/uL (4.3-11.0)
--- NOTE | 2017-06-19 06:43 | NUR ---
RN NOTES RECEIVED PATIENT SLEEPING IN BED WITH NO DISTRESS NOTED. BREATHING EVEN AND UNLABORED. NO PHYSICAL MANIFESTATION OF PAIN OR DISCOMFORT. VITAL SIGNS WNL. GT PATENT AND INTACT. FEEDING WELL TOLERATED. HOB ELEVATED. ABDOMEN SOFT AND NON TENDER. INCONTINENT OF BOWEL AND BLADDER FUNCTION. VOIDS FREELY WITHOUT DIFFICULTY. NO SIGNIFICANT CHANGE OF CONDITION. WILL ENDORSE TO AM SHIFT FOR CONTINUITY OF CARE.
[2017-06-19 06:44] LABS: ALBUMIN 1.6 g/dL (3.4-5.0); BILIRUBIN,TOTAL 0.2 mg/dL (0.2-1.0); CALCIUM, SERUM 8.2 mg/dL (8.5-10.1); POTASSIUM 3.7 mmol/L (3.5-5.1); TOTAL PROTEIN, SERUM 6.5 g/dL (6.4-8.2)
--- NOTE | 2017-06-19 07:33 | NUR ---
RN NOTES RECEIVED PT FROM BULK SEALER OPERATOR IN STABLE CONDITION. CHRONIC TRACH, NON VERBAL, NO SOB OR DISTRESS NOTED SATING WELL ON COOL AEROSOL. MAU PICC LINE DRESSING DRY AND INTACT. GLYTROL AT 65ML/HR NO RESIDUAL NOTED. ISOLATION PRECAUTIONS FOLLOWED. SIDE RAILS UPX3, CALL LIGHT WITHIN REACH, BED LOCKED AND IN LOWEST POSITION, WILL CONT TO MONITOR.
[2017-06-19 08:00] VITALS: BP 100/59
[2017-06-19 10:44] VITALS: BP 111/67
[2017-06-19 12:00] VITALS: BP 128/65
[2017-06-19 16:00] VITALS: BP 128/65
--- NOTE | 2017-06-19 19:45 | NUR ---
MS/RN NOTES RECEIVED PT. LYING IN BED. PT. IS NON-VERBAL WITH CHRONIC TRACH. PT. HAS PORTEX 7 TRACH PRESENT AND INTACT. PT.HAS T-PIECE PRESENT AND INTACT AND IS RECEIVING COOL AEROSOL @ 5 LPM. NO SOB, RESPIRATORY DISTRESS OR S/S OF PAIN NOTED AT THIS TIME. PT. WITH RIGHT UPPER ARM PICC PRESENT, PATENT AND INTACT. PT. WITH G-TUBE PRESENT AND INTACT, ADMINISTERING TO PT. GLYTROL @ 65 ML/HR. PT. TOLERATING WELL. NO RESIDUAL NOTED AT THIS TIME. BED LOCKED AND IN LOWEST POSITION, SIDE RAILS UP X3, BED ALARM ON, WILL CONTINUE TO MONITOR.
[2017-06-19 20:00] VITALS: BP 104/63
--- NOTE | 2017-06-19 20:01 | NUR ---
RN NOTES PT RESTING IN BED TOLERATING COOL AEROSOL NO SOB OR DISTRESS NOTED. PT SUCTIONED, CLEANED, AND REPOSITIONED. GTUBE FEEDING STILL RUNNING. NO SIGNIFICANT CHANGES THROUGHOUT MY SHIFT. CALL LIGHT WITHIN REACH, SIDE RAILS UPX3, BED LOCKED AND IN LOWEST POSITION WILL ENDORSE TO ONCOMING SHIFT.
[2017-06-20 04:00] VITALS: BP 111/71
[2017-06-20 06:31] LABS: BASOPHILS % (AUTO) 0.1 % (0.0-2.0); EOSINOPHILS # (AUTO) 0.1 /CMM (0.0-0.7); HEMATOCRIT 27 % (33-45); HEMOGLOBIN 8.6 g/dL (11.5-14.8); LYMPHOCYTES # (AUTO) 1.1 /CMM (0.8-4.8); LYMPHOCYTES % (AUTO) 7.9 % (20.0-44.0); MEAN CORPUSCULAR HEMOGLOBIN 27 PG (26.0-33.0); MEAN CORPUSCULAR HGB CONC 32 g/dl (31.0-36.0); MEAN CORPUSCULAR VOLUME 85 fL (82-100); MONOCYTES # (AUTO) 1.2 /CMM (0.1-1.30); MONOCYTES % (AUTO) 8.9 % (2.0-12.0); NEUTROPHILS # (AUTO) 11.3 /CMM (1.8-8.9); NEUTROPHILS % (AUTO) 82.1 % (43.0-81.0); PLATELET COUNT (AUTO) 180 /CMM (150-450); RDW COEFFICIENT OF VARIATION 17.7 (11.5-15.0); RED BLOOD CELL COUNT(AUTO) 3.15 MIL/uL (4.0-5.2); WHITE BLOOD COUNT (AUTO) 13.7 K/uL (4.3-11.0)
--- NOTE | 2017-06-20 06:50 | NUR ---
MS/RN NOTES PT. IS LYING IN BED RESTING. PT. IS NON-VERBAL WITH CHRONIC TRACH. PT. HAS PORTEX 7 TRACH PRESENT AND INTACT. PT.HAS T-PIECE PRESENT AND INTACT AND IS RECEIVING COOL AEROSOL @ 5 LPM. NO SOB, RESPIRATORY DISTRESS OR S/S OF PAIN NOTED AT THIS TIME AND THROUGHOUT SHIFT. PT. WITH RIGHT UPPER ARM PICC PRESENT, PATENT AND INTACT. PT. WITH G-TUBE PRESENT AND INTACT, ADMINISTERING TO PT. GLYTROL @ 65 ML/HR. PT. TOLERATING WELL. NO RESIDUAL NOTED AT THIS TIME AND THROUGHOUT SHIFT. ALL PT. NEEDS MET. PT. OFFLOADED, TURNED AND REPOSITIONED Q2H AND NEEDED. BED LOCKED AND IN LOWEST POSITION, SIDE RAILS UP X3, BED ALARM ON, WILL ENDORSE TO DAYSHIFT NURSE FOR CONTINUITY OF CARE.
[2017-06-20 07:29] LABS: ALBUMIN 1.6 g/dL (3.4-5.0); BILIRUBIN,TOTAL 0.2 mg/dL (0.2-1.0); CALCIUM, SERUM 8.4 mg/dL (8.5-10.1); CREATININE 1.8 mg/dL (0.6-1.3); POTASSIUM 4.3 mmol/L (3.5-5.1); TOTAL PROTEIN, SERUM 6.9 g/dL (6.4-8.2)
[2017-06-20 08:00] VITALS: BP 124/72
[2017-06-20 16:00] VITALS: BP 105/67
--- NOTE | 2017-06-20 16:30 | NUR ---
Central line dressing change, caps as well. Sterile technique. Patient tolerated well.
--- NOTE | 2017-06-20 18:53 | NUR ---
Handoff report to night nurse.
--- NOTE | 2017-06-20 19:40 | NUR ---
RN INITIAL NOTES: RECEIVED REPORT FROM ADRI GALINDO, PT IN BED, AWAKE, A/O X1 NON VERBAL PT ON COOL AEROSOL FIO2 28% CONTINUOUS PULSE OX IN PLACED SATING 100%, PT HAS MAU PICC LINE PATENT AND FLUSHING WELL, ALSO PT HAS G-TUBE AND RECEIVING GLYTROL ULTRAPAK AT 65ML/HR, BLE OFFLOADED SAFETY PRECAUTIONS FOR FALL INITIATED CALL LIGHT IN REACH, WILL CONTINUE TO MONITOR
[2017-06-20 20:00] VITALS: BP 115/63
--- NOTE | 2017-06-20 20:00 | NUR ---
RN NOTES: PT'S MAU PICC LINE ON HL, BOTH WHITE PORT UNABLE TO FLUSH, HOWEVER THE RED PORT IS WORKING BUT WILL BE NEEDING FREQUENT FLUSH OF NS,
--- NOTE | 2017-06-20 21:23 | NUR ---
RN NOTES: CHECKED PT'S GTUBE RESIDUAL AND OBTAINED 0 ML, ALL DUE MEDS GIVEN ORDERED, ABDOMEN SOFT TO TOUCH WITH ACTIVE BOWEL SOUND HEARD UPON AUSCULTATION,
--- NOTE | 2017-06-20 22:53 | NUR ---
RN NOTES: PT IN BED, AWAKE, REMAINS NON VERBAL, ON COOL AEROSOL SATURATING WELL, GTUBE FEEDING REMAINS INFUSING, VS STABLE, NEEDS ATTENDED, ENDORSED FOR CONTINUITY OF CARE
--- NOTE | 2017-06-21 | NUR ---
RN NOTES ACCUCHECK BLOOD SUGAR CHECK 149,COVERED WITH HUMULIN R 2 UNITS PER SLIDING SCALE.
[2017-06-21 04:00] VITALS: BP 112/62
--- NOTE | 2017-06-21 06:43 | NUR ---
MS RN NOTES MORNING CARE RENDERED BY SIVA BUSTILLO,TOLERATED WELL,GT FEEDING TOLERATED WELL,NO RESIDUAL NOTED. BLOOD SUGAR CHECK 161,COVERED WITH HUMULIN R 3 UNITS PER SLIDING SCALE..CONTINUE WITH REPOSITIONING PER PROTOCOL.PICC LINE 2 PORT REMAINS CLOG,RED PORT WAS THE ONE REMAINS PATENT.IN NO ACUTE DISTRESS.NEEDS ATTENDED. WILL ENDORSE TO DAY NURSE FOR KI.
[2017-06-21 07:09] LABS: BASOPHILS % (AUTO) 0.1 % (0.0-2.0); EOSINOPHILS # (AUTO) 0.1 /CMM (0.0-0.7); EOSINOPHILS % (AUTO) 0.8 % (0.0-6.0); HEMATOCRIT 25 % (33-45); HEMOGLOBIN 8.5 g/dL (11.5-14.8); LYMPHOCYTES # (AUTO) 0.8 /CMM (0.8-4.8); LYMPHOCYTES % (AUTO) 9.2 % (20.0-44.0); MEAN CORPUSCULAR HEMOGLOBIN 29 PG (26.0-33.0); MEAN CORPUSCULAR HGB CONC 34 g/dl (31.0-36.0); MEAN CORPUSCULAR VOLUME 87 fL (82-100); MONOCYTES # (AUTO) 0.9 /CMM (0.1-1.30); NEUTROPHILS # (AUTO) 6.7 /CMM (1.8-8.9); NEUTROPHILS % (AUTO) 78.9 % (43.0-81.0); PLATELET COUNT (AUTO) 225 /CMM (150-450); RDW COEFFICIENT OF VARIATION 17.8 (11.5-15.0); RED BLOOD CELL COUNT(AUTO) 2.92 MIL/uL (4.0-5.2); WHITE BLOOD COUNT (AUTO) 8.5 K/uL (4.3-11.0)
[2017-06-21 07:28] LABS: ALBUMIN 1.7 g/dL (3.4-5.0); BILIRUBIN,TOTAL 0.2 mg/dL (0.2-1.0); CALCIUM, SERUM 8.3 mg/dL (8.5-10.1); CREATININE 1.8 mg/dL (0.6-1.3); POTASSIUM 3.8 mmol/L (3.5-5.1)
--- NOTE | 2017-06-21 07:38 | NUR ---
AM RN NOTE Received patient from fruit harvest machine operator RN in stable condition. On trach, noted settings well on cool aerosol, non-verbal. PICC line on MAU intact and patent. Continue on GT feeding at 65ml/hr with no residual. Bed in low locked position. Will continue to monitor.
[2017-06-21 08:00] VITALS: BP_SYST 127; BP_DIAS 70; BP_DIAS 80
[2017-06-21 16:00] VITALS: BP 128/69
--- NOTE | 2017-06-21 18:11 | NUR ---
AM RN NOTE Patient resting in her bed, no acute distress noted. All needs met and attended in timely manner. Will endorse care to next shift.
[2017-06-21 20:00] VITALS: BP 125/76
--- NOTE | 2017-06-21 20:00 | NUR ---
MS RN NOTE PT IN BED AWAKE, NON VERBAL BUT ABLE TO USE FACIAL EXPRESSION. NO DISTRESS OR DISCOMFORT NOTED. NO S/S OF PAIN NOTED. GTF GLYTROL INFUSING WELL AT 65 ML/HR, 0 ML RESIDUAL NOTED. MAU PICC INTACT AND PATENT ONLY RED COLOR LINE. NO S/S OF HYPO OR HYPERGLYCEMIA NOTED. KEPT HER HOB ELEVATED TO 30 DEGREES. KEPT HER DRY AND CLEAN. REPOSITION HER FOR SKIN MANAGEMENT AND WILL CONTINUE DURING THE SHIFT. SIDE RAILS UP X 3 AND CALL LIGHT WITHIN REACH. VSS. CONTINUE TO MONITOR HER.
[2017-06-22 04:00] VITALS: BP 127/77
--- NOTE | 2017-06-22 06:47 | NUR ---
MS RN NOTE PT IN BED NO CHANGE IN CONDITION. GTF INFUSING WELL, NO RESIDUAL NOTED. KEPT HER DRY AND CLEAN. SIDE RAILS UP X 2 AND CALL LIGHT WITHIN REACH. VSS. WILL ENDORSE TO DAY SHIFT NURSE FOR CONTINUE TO CARE.
[2017-06-22 07:06] LABS: BASOPHILS % (AUTO) 0.2 % (0.0-2.0); EOSINOPHILS # (AUTO) 0.1 /CMM (0.0-0.7); EOSINOPHILS % (AUTO) 1.4 % (0.0-6.0); HEMATOCRIT 26 % (33-45); HEMOGLOBIN 9.2 g/dL (11.5-14.8); LYMPHOCYTES # (AUTO) 0.9 /CMM (0.8-4.8); LYMPHOCYTES % (AUTO) 9.2 % (20.0-44.0); MEAN CORPUSCULAR HEMOGLOBIN 31 PG (26.0-33.0); MEAN CORPUSCULAR HGB CONC 35 g/dl (31.0-36.0); MEAN CORPUSCULAR VOLUME 86 fL (82-100); MONOCYTES # (AUTO) 1.1 /CMM (0.1-1.30); MONOCYTES % (AUTO) 11.9 % (2.0-12.0); NEUTROPHILS # (AUTO) 7.3 /CMM (1.8-8.9); NEUTROPHILS % (AUTO) 77.3 % (43.0-81.0); PLATELET COUNT (AUTO) 296 /CMM (150-450); RED BLOOD CELL COUNT(AUTO) 3.02 MIL/uL (4.0-5.2); WHITE BLOOD COUNT (AUTO) 9.4 K/uL (4.3-11.0)
--- NOTE | 2017-06-22 07:10 | NUR ---
RN INITIAL NOTES: REC'D PT AWAKE ON BED, NOT IN ANY FORM OF DISTRESS, A/O X1, OPENS EYES SPONTANEOUSLY. HAS TRACH (PORTEX 7), ON T-PIECE, SATURATING AT 98%. HAS PATENT & INTACT G-TUBE, ON CONT TUBE FEEDING GLYTROL 65 CC/HR INFUSING WELL, NO RESIDUAL NOTED UPON CHECKING. HAS MAU PICC LINE, FLUSHED, PATENT & INTACT W/ NO S/SX OF INFECTION/ INFILTRATION NOTED. PROVIDED COMFORT & SAFETY MEASURES. BED KEPT LOW & IN LOCKED POS. CALL LIGHT PLACED W/IN REACH. WILL CONTINUE TO MONITOR.
[2017-06-22 07:25] LABS: ALBUMIN 1.7 g/dL (3.4-5.0); BILIRUBIN,TOTAL 0.2 mg/dL (0.2-1.0); CALCIUM, SERUM 8.5 mg/dL (8.5-10.1); CREATININE 1.6 mg/dL (0.6-1.3); POTASSIUM 4.2 mmol/L (3.5-5.1); TOTAL PROTEIN, SERUM 7.4 g/dL (6.4-8.2)
[2017-06-22 08:00] VITALS: BP 100/60
[2017-06-22 16:00] VITALS: BP 123/69
--- NOTE | 2017-06-22 19:00 | NUR ---
RN CLOSING NOTES: NO ACUTE CHANGES NOTED W/IN SHIFT. PT TOLERATED COOL AEROSOL SETTING, SATURATING AT 98%. G-TUBE KEPT PATENT & INTACT, ON CONT TUBE FEEDING GLYTROL 65 CC/HR INFUSING WELL, NO RESIDUAL NOTED W/IN SHIFT. MAU PICC LINE, SL, KEPT PATENT & INTACT W/ NO S/SX OF INFECTION/ INFILTRATION NOTED. KEPT WELL RESTED. NEEDS ATTENDED. BED KEPT LOW & IN LOCKED POS. CALL LIGHT PLACED W/IN REACH. ENDORSED TO PM RN FOR KI.
[2017-06-22 20:00] VITALS: BP 110/63
[2017-06-23 04:00] VITALS: BP 115/62
[2017-06-23 06:42] LABS: BASOPHILS % (AUTO) 0.1 % (0.0-2.0); EOSINOPHILS # (AUTO) 0.2 /CMM (0.0-0.7); EOSINOPHILS % (AUTO) 2.1 % (0.0-6.0); HEMATOCRIT 26 % (33-45); HEMOGLOBIN 9.3 g/dL (11.5-14.8); LYMPHOCYTES % (AUTO) 10.3 % (20.0-44.0); MEAN CORPUSCULAR HEMOGLOBIN 30 PG (26.0-33.0); MEAN CORPUSCULAR HGB CONC 35 g/dl (31.0-36.0); MEAN CORPUSCULAR VOLUME 85 fL (82-100); MONOCYTES # (AUTO) 1.2 /CMM (0.1-1.30); MONOCYTES % (AUTO) 11.5 % (2.0-12.0); NEUTROPHILS # (AUTO) 7.6 /CMM (1.8-8.9); PLATELET COUNT (AUTO) 375 /CMM (150-450); RDW COEFFICIENT OF VARIATION 16.9 (11.5-15.0); RED BLOOD CELL COUNT(AUTO) 3.09 MIL/uL (4.0-5.2)
[2017-06-23 07:00] LABS: ALBUMIN 1.9 g/dL (3.4-5.0); BILIRUBIN,TOTAL 0.2 mg/dL (0.2-1.0); CALCIUM, SERUM 8.6 mg/dL (8.5-10.1); CREATININE 1.7 mg/dL (0.6-1.3); POTASSIUM 4.5 mmol/L (3.5-5.1); TOTAL PROTEIN, SERUM 7.9 g/dL (6.4-8.2)
[2017-06-23 08:00] VITALS: BP_SYST 107; BP_DIAS 64; BP_DIAS 69
[2017-06-23 16:00] VITALS: BP 104/59
--- NOTE | 2017-06-23 19:05 | NUR ---
MS RN OPENING NOTES RECEIVED REPORT FROM REESE GALINDO. PATIENT IN BED, A/A/O X1, NON-VERBAL BUT RESPONSIVE TO VERBAL AND TACTILE STIMULI. BREATHING EVEN AND UNLABORED W/ TRACH INTACT ON COOL AEROSOL & FIO2 28%. NO RESPIRATORY DISTRESS OR SOB NOTED. G-TUBE INTACT AND PATENT W/ GTF GLYTROL @ 65 ML/HR, NO RESIDUAL NOTED. RIGHT UPPER ARM PICC LINE PATENT W/ DRESSING CDI, ON TKO. NO S/S OF PAIN OR DISCOMFORT @ THIS TIME. SAFETY MEASURES IN PLACE W/ SIDE RAILS UP, BED LOCKED IN LOWEST POSITION, CALL LIGHT WITHIN REACH. WILL CONTINUE TO MONITOR.
[2017-06-23 20:00] VITALS: BP 127/74
[2017-06-24 04:00] VITALS: BP_SYST 104; BP_SYST 127; BP_DIAS 61; BP_DIAS 74
[2017-06-24 06:51] LABS: ALBUMIN 1.9 g/dL (3.4-5.0); BILIRUBIN,TOTAL 0.2 mg/dL (0.2-1.0); CALCIUM, SERUM 8.6 mg/dL (8.5-10.1); CREATININE 1.6 mg/dL (0.6-1.3); POTASSIUM 4.6 mmol/L (3.5-5.1); TOTAL PROTEIN, SERUM 8.2 g/dL (6.4-8.2)
[2017-06-24 06:53] LABS: BASOPHILS % (AUTO) 0.4 % (0.0-2.0); EOSINOPHILS # (AUTO) 0.2 /CMM (0.0-0.7); EOSINOPHILS % (AUTO) 1.9 % (0.0-6.0); HEMATOCRIT 24 % (33-45); HEMOGLOBIN 8.3 g/dL (11.5-14.8); LYMPHOCYTES # (AUTO) 1.1 /CMM (0.8-4.8); LYMPHOCYTES % (AUTO) 12.1 % (20.0-44.0); MEAN CORPUSCULAR HEMOGLOBIN 30 PG (26.0-33.0); MEAN CORPUSCULAR HGB CONC 35 g/dl (31.0-36.0); MEAN CORPUSCULAR VOLUME 84 fL (82-100); MONOCYTES # (AUTO) 1.2 /CMM (0.1-1.30); MONOCYTES % (AUTO) 12.7 % (2.0-12.0); NEUTROPHILS # (AUTO) 6.8 /CMM (1.8-8.9); NEUTROPHILS % (AUTO) 72.9 % (43.0-81.0); PLATELET COUNT (AUTO) 496 /CMM (150-450); RDW COEFFICIENT OF VARIATION 16.9 (11.5-15.0); RED BLOOD CELL COUNT(AUTO) 2.81 MIL/uL (4.0-5.2); WHITE BLOOD COUNT (AUTO) 9.4 K/uL (4.3-11.0)
[2017-06-24 08:00] VITALS: BP 105/62
[2017-06-24 16:00] VITALS: BP 111/62
--- NOTE | 2017-06-24 16:35 | NUR ---
RN NOTES PT DISCHARGED TO [facility] VIA AMBULANCE, IN STABLE CONDITION, PICC LINE LEFT IN PLACE, CLEANED PRIOR TRANSPORTATION, PICTURES TAKEN, REPORT GIVEN TO JOSIE AJ, FAMILY NOTIFIED ABOUT DISCHARGE (MR BACA). EXIT CARE DONE, DISCHARGE INSTRUCTIONS PROVIDED TO EMT PERSONNEL, NO BELONGINGS, DR MALCOLM REQUESTED [facility] TO REACH HER TO CLARIFY ALL ORDERS UPON PT'S ARRIVAL AND GAVE THE PHONE NUMBER TO JEAN MARIE.
== END 2017-06-24 16:39 | DRG 720 ==
LOC: ER 11:18 → ICU 14:17 → TELE1 06-17 18:04 → MEDSG1 06-18 09:33
PROVIDERS: ADMIT Internal Medicine Hematology & Oncology; ATTEND Internal Medicine Hematology & Oncology
PROC: 02HV33Z Insertion of Infusion Device into Superior Vena Cava, Percutaneous Approach (ICD-10-PCS; principal; 2017-06-12)
PROC: 30233N1 Transfusion of Nonautologous Red Blood Cells into Peripheral Vein, Percutaneous Approach (ICD-10-PCS; principal; 2017-06-12)
PROC: 06HM33Z Insertion of Infusion Device into Right Femoral Vein, Percutaneous Approach (ICD-10-PCS; principal; 2017-06-12)
DX: A41.9 Sepsis, unspecified organism (principal); I21.4 Non-ST elevation (NSTEMI) myocardial infarction; N17.0 Acute kidney failure with tubular necrosis; R65.21 Severe sepsis with septic shock; G93.40 Encephalopathy, unspecified; J96.11 Chronic respiratory failure with hypoxia; G93.41 Metabolic encephalopathy; J18.9 Pneumonia, unspecified organism; E46 Unspecified protein-calorie malnutrition; Z93.0 Tracheostomy status; Z79.82 Long term (current) use of aspirin; Z79.899 Other long term (current) drug therapy; D50.9 Iron deficiency anemia, unspecified; D63.8 Anemia in other chronic diseases classified elsewhere; D75.89 Other specified diseases of blood and blood-forming organs; E87.2 Acidosis; E87.70 Fluid overload, unspecified; E11.22 Type 2 diabetes mellitus with diabetic chronic kidney disease; I12.9 Hypertensive chronic kidney disease with stage 1 through stage 4 chronic kidney disease, or unspecified chronic kidney disease; I70.0 Atherosclerosis of aorta; N18.9 Chronic kidney disease, unspecified; N39.0 Urinary tract infection, site not specified; R13.10 Dysphagia, unspecified; Z87.820 Personal history of traumatic brain injury; Z93.1 Gastrostomy status; B96.89 Other specified bacterial agents as the cause of diseases classified elsewhere; I69.051 Hemiplegia and hemiparesis following nontraumatic subarachnoid hemorrhage affecting right dominant side; D72.823 Leukemoid reaction; Z22.322 Carrier or suspected carrier of Methicillin resistant Staphylococcus aureus; F25.9 Schizoaffective disorder, unspecified; K92.2 Gastrointestinal hemorrhage, unspecified
CPT/HCPCS: 31720; 36415; 36569; 36600; 71010-TC; 80048-TC; 80053-TC; 80076-TC; 81000-TC; 82272-TC; 82378; 82550-TC; 82570-TC; 82652; 82728-TC; 82803-TC; 82962-TC; 83540-TC; 83605-TC; 83735-TC; 83970; 84100-TC; 84155; 84155-TC; 84165; 84300-TC; 84439-TC; 84443-TC; 84484-TC; 84550-TC; 85025-TC; 85652-TC; 85730-TC; 86850-TC; 86921-TC; 87040-TC; 87081-TC; 87086-TC; 87186-TC; 93307-TC; 94640-TC; 94762-TC; 94799-TC; A4216; A4606; A4623; A6248; A6402; A6403; A7526; C1751; C9113; J0696; J1815; J2060; J2185; J2543; J2916; J3370; J3480; J7030; J7050; J7060; J7120; P9016-BL; Z7610

== ENCOUNTER 2019-12-07 22:15 | Inpatient (IN) | payer OTHER ==
[~2019-12-07] VITALS: Ht 154.9 cm; Wt 41.3 kg
[~2019-12-07 22:15] MED LIST: ACET650S26 GT; ASCO500S2 GT; ASPI-1169 GT; BENA10TA74 GT; BISA10SU11 RC; CHOL100044 GT; FENO145T GT; FERR300L GT; FOLI1TAB16 GT; INSU100I26 SQ; IPRA3AMP23 IH; LABE100T5 GT; MAGN400O6 GT; NA P133E RC; NUT.237L30 GT; PRAV40TA3 GT; VITA1TAB56 GT
--- NOTE | 2019-12-07 22:25 | NUR ---
OSCAR FROM A SNF FOR C/O CP. UNABLE TO OBTAIN MEDICAL HX FROM THE PT DUE TO PT NON- VERBAL SEC TO TRACH IN PLACE AND DOES NO UNDERSTABD ROMANIAN. PT POITING TO HER L CHEST FOR PAIN. PER PARAMEDICS PT HAS RECEIVED 162MG OF ASA PO AT THE FACILITY AND 1 SPRAY OF NITRO PEDIATRIC CARE COORDINATOR BY ring maker. PT WAS PLACED ON A MONITOR. VSS, WILL CONT TO MONITOR ,
[2019-12-07 22:31] LABS: BASOPHILS # (AUTO) 0.1 /CMM (0.0-0.2); BASOPHILS % (AUTO) 0.7 % (0.0-2.0); EOSINOPHILS % (AUTO) 1.4 % (0.0-6.0); HEMATOCRIT 42 % (33-45); HEMOGLOBIN 13.8 g/dL (11.5-14.8); LYMPHOCYTES # (AUTO) 2.3 /CMM (0.8-4.8); LYMPHOCYTES % (AUTO) 25.5 % (20.0-44.0); MEAN CORPUSCULAR HGB CONC 33 g/dl (31.0-36.0); MEAN CORPUSCULAR VOLUME 88 fL (82-100); MONOCYTES # (AUTO) 0.7 /CMM (0.1-1.30); MONOCYTES % (AUTO) 7.5 % (2.0-12.0); NEUTROPHILS # (AUTO) 5.9 /CMM (1.8-8.9); NEUTROPHILS % (AUTO) 64.9 % (43.0-81.0); PLATELET COUNT (AUTO) 358 /CMM (150-450); RED BLOOD CELL COUNT(AUTO) 4.76 MIL/uL (4.0-5.2); WHITE BLOOD COUNT (AUTO) 9.2 K/uL (4.3-11.0)
--- NOTE | 2019-12-07 22:32 | NUR ---
REASSESSED THE PT FOR PAIN. PT NOW VERBALLY COMMUNICATING WITH [employer]. TRACH IS CAPED . PT REPORTED FEELING BETTER. PT ALSO NOTED W/ CLAMPED GT AND DIAPER. VSS. REMAINED ON ONGOING MONITORING,
[2019-12-07 22:40] LABS: CALCIUM, SERUM 9.9 mg/dL (8.5-10.1); CREATININE 1.5 mg/dL (0.6-1.3); POTASSIUM 4.7 mmol/L (3.5-5.1)
[2019-12-07 22:52] LABS: BILIRUBIN,DIRECT 0.1 mg/dL (0.0-0.2); BILIRUBIN,TOTAL 0.3 mg/dL (0.2-1.0)
[2019-12-08] MEDS ORDERED: MIRT15TA GT (00:52)
[2019-12-08] MEDS ORDERED: CYCL5POW MC (00:52)
[2019-12-08] MEDS ORDERED: BENA20TA9 GT (00:52)
[2019-12-08] MEDS ORDERED: LANS30CA56 GT (00:52)
--- NOTE | 2019-12-08 01:00 | NUR ---
called [facility] and spoke to manuela. per her pt is not taking any formula via GT has PO diet for mechanical soft.
[2019-12-08 01:15] VITALS: BP_SYST 103; BP_DIAS 3; BP_DIAS 66
--- NOTE | 2019-12-08 01:15 | NUR ---
HOTEL FRONT DESK AGENT NOTES PATIENT ARRIVED TO THE UNIT AT 0115 WITH ACLS PROTOCOLS. ALERT AND ORIENTED X 2. PATIENT ON SCIENCE INTERN, NORMAL SINUS, 70'S. PATIENT TRACH IN PLACE WITH CAP ON. PATIENT G-TUBE IN PLACE, NO LEAKAGE FROM SITE. IV ACCESS, RAC 18 GAUGE SL, IN PLACE AND INTACT. PATIENT PLACED ON NASAL CANNULA, 2L NO SIGNS OF RESPIRATORY DISTRESS PRESENT WITH EVEN NON-LABORED BREATHING. PROVIDED COMFORT MEASURES TO PATIENT. SAFETY PRECAUTIONS IN PLACE WITH BED IN THE LOWEST POSITION, BILATERAL SIDE RAILS UP, BED LOCKED, BED ALARM ON, AND CALL LIGHT WITHIN EASY REACH. WILL CONTINUE TO MONITOR PATIENT.
--- NOTE | 2019-12-08 01:19 | NUR ---
pt was transferred to 313 under acls
[2019-12-08 04:00] VITALS: BP 105/77
--- NOTE | 2019-12-08 07:15 | NUR ---
HOOP RIVETING MACHINE OPERATOR HELPER NOTES PATIENT IN BED RESTING, ALERT AND ORIENTED X 1-2. PATIENT ON ROOM AIR, NO SIGNS OF RESPIRATORY DISTRESS PRESENT, NO SIGNS OF SOB, AND WITH EVEN NON-LABORED BREATHING. PATIENT TRACH IN PLACE WITH A CAP. PATIENT IV ACCESS IN PLACE, PATENT AND INTACT. PATIENT G-TUBE KEPT CLEAN AND DRY. PATIENT ON MOTOR VEHICLE EXAMINER, NORMAL SINUS RHYTHM, 80'S. PROVIDED COMFORT MEASURES TO PATIENT, NO SIGNS OF PAIN OR DISCOMFORT. SAFETY PRECAUTIONS IN PLACE WITH BED IN THE LOWEST POSITION, BILATERAL SIDE RAILS UP, BED LOCKED, BED ALARM ON, AND CALL LIGHT WITHIN EASY REACH. WILL ENDORSE KI TO UPCOMING DAYSHIFT NURSE.
[2019-12-08 07:25] LABS: BASOPHILS # (AUTO) 0.1 /CMM (0.0-0.2); BASOPHILS % (AUTO) 0.6 % (0.0-2.0); EOSINOPHILS % (AUTO) 1.4 % (0.0-6.0); HEMATOCRIT 46 % (33-45); HEMOGLOBIN 14.5 g/dL (11.5-14.8); LYMPHOCYTES # (AUTO) 2.9 /CMM (0.8-4.8); LYMPHOCYTES % (AUTO) 31.3 % (20.0-44.0); MEAN CORPUSCULAR HGB CONC 32 g/dl (31.0-36.0); MEAN CORPUSCULAR VOLUME 90 fL (82-100); MONOCYTES # (AUTO) 1.2 /CMM (0.1-1.30); MONOCYTES % (AUTO) 12.5 % (2.0-12.0); NEUTROPHILS # (AUTO) 5.1 /CMM (1.8-8.9); NEUTROPHILS % (AUTO) 54.2 % (43.0-81.0); PLATELET COUNT (AUTO) 308 /CMM (150-450); RED BLOOD CELL COUNT(AUTO) 5.04 MIL/uL (4.0-5.2); WHITE BLOOD COUNT (AUTO) 9.4 K/uL (4.3-11.0)
--- NOTE | 2019-12-08 07:35 | NUR ---
MULTIMEDIA TECHNICIAN NOTES PT IN BED, AWAKE, ALERT AND VERBALLY RESPONSIVE, STATED SHE IS OK, DENIES ANY PAIN OR DISCOMFORT, BREATHING PATTERN NORMAL, CALL LIGHT WITHIN REACH, KEPT WARM AND COMFORTABLE IN BED.
[2019-12-08] MEDS ORDERED: GUAI100S11 GT (07:39)
[2019-12-08] MEDS ORDERED: ACET650S26 GT (07:39)
[2019-12-08] MEDS ORDERED: SENN-168 GT (07:39)
[2019-12-08] MEDS ORDERED: ROSU40TA23 GT (07:39)
[2019-12-08] MEDS ORDERED: NA P133E RC (07:39)
[2019-12-08] MEDS ORDERED: ACET-2605 GT (07:39)
[2019-12-08] MEDS ORDERED: FLUT16SP (07:39)
[2019-12-08] MEDS ORDERED: CYCL5TAB GT (07:39)
[2019-12-08] MEDS ORDERED: DICL100G16 TP (07:39)
[2019-12-08 08:00] VITALS: BP 108/71
--- NOTE | 2019-12-08 08:53 | NUR ---
STRAP SEWER NOTES RECEIVED ORDER FROM DR. STEARNS TO CONTINUE HOME MEDS, FAXED HOME MEDS LIST TO PHARMACY.
[2019-12-08] MEDS ORDERED: MAGNESIUM HYDROXIDE 30 ML UDC GT PRN (09:30)
[2019-12-08] MEDS ORDERED: NA PHOS,M-B/NA PHOS,DI-BA 1 EA ENEMA RC PRN (09:30)
[2019-12-08] MEDS ORDERED: DICLOFENAC TOPICAL 100 GM GEL..GM. TP PRN (09:30)
[2019-12-08] MEDS ORDERED: ACETAMINOPHEN 650 MG/20.3 ML UDC GT PRN (09:30)
[2019-12-08] MEDS ORDERED: BISACODYL SUPP (10 MG) 10 MG/SUPP.RECT SUPP.RECT RC PRN (09:30)
[2019-12-08] MEDS ORDERED: GUAIFENESIN 300 MG/15 ML UDC GT PRN (09:30)
[2019-12-08] MEDS: BENAZEPRIL HCL 20 MG TABLET GT SCH (09:31)
[2019-12-08] MEDS: CYCLOBENZAPRINE 10 MG TABLET GT SCH ×2 (10:24→17:15)
[2019-12-08] MEDS: PANTOPRAZOLE 40 MG/PACK PACK NG SCH (10:24)
[2019-12-08] MEDS: ASCORBIC ACID 500 MG TABLET GT SCH (10:24)
[2019-12-08] MEDS: FERROUS SULFATE UDC 300 MG/5 ML UDC GT SCH (10:24)
[2019-12-08 11:16] LABS: CALCIUM, SERUM 9.3 mg/dL (8.5-10.1); CARBON DIOXIDE 25 mmol/L (21-32); CHLORIDE 105 mmol/L (98-107); CREATININE 1.2 mg/dL (0.6-1.3); GLUCOSE 117 mg/dL (74-106); POTASSIUM 3.6 mmol/L (3.5-5.1); SODIUM SERUM 142 mmol/L (136-145); UREA NITROGEN, BLOOD 22 mg/dL (7-18)
--- NOTE | 2019-12-08 11:59 | NUR ---
RN MS NOTES PT IN BED, AWAKE, ALERT AND VERBALLY RESPONSIVE, DENIES PAIN, NOT IN DISTRESS, TOLERATES ROOM AIR, ASSISTED WITH NEEDS, GT INTACT AND PATENT, NO DRAINAGE NOTED, ASSISTED IN REPOSITIONING.
[2019-12-08] MEDS ORDERED: ALBUTEROL FS 2.5 MG/3 ML VIAL.NEB NEB PRN (12:30)
[2019-12-08] MEDS ORDERED: IPRATROPIUM NEB FS 0.5 MG/2.5 ML AMPUL.NEB NEB PRN (12:30)
[2019-12-08] MEDS: FLUTICASONE PROPIONATE 16 GM BOTTLE NS SCH (13:33)
[2019-12-08] MEDS: ALBUTEROL FS 2.5 MG/3 ML VIAL.NEB NEB SCH ×2 (14:10→19:09)
[2019-12-08] MEDS: IPRATROPIUM NEB FS 0.5 MG/2.5 ML AMPUL.NEB NEB SCH ×2 (14:10→19:09)
[2019-12-08 16:00] VITALS: BP 108/67
[2019-12-08 17:39] LABS: CREATINE KINASE, TOTAL 72 U/L (26-192)
--- NOTE | 2019-12-08 18:04 | NUR ---
RN MS NOTES PT IN BED, AWAKE, ALERT, NO COMPLAINT OF PAIN, NOT IN DISTRESS, ATE DINNER, TOLERATES WELL, PM CARE PROVIDED, GT INTACT AND PATENT, REPOSITIONED FOR COMFORT, KEPT CLEAN AND DRY, ALL NEEDS ATTENDED.
--- NOTE | 2019-12-08 19:26 | NUR ---
MS RN NOTES PATIENT RECEIVED IN BED, RESTING COMFORTABLY. PATIENT ALERT AND ORIENTED X 2. NO SIGNS OF RESPIRATORY DISTRESS PRESENT, NO SIGNS OF SOB, WITH EVEN NON-LABORED BREATHING. PATIENT SKIN CLEAN, DRY AND INTACT. IV ACCESS IN PLACE, PATENT AND INTACT. PATIENT DENIES OF ANY PAIN OR DISCOMFORT. SAFETY PRECAUTIONS IN PLACE WITH BED IN THE LOWEST POSITION, BED LOCKED, BED ALARM ON, BILATERAL SIDE RAILS UP, AND CALL LIGHT WITHIN EASY REACH. WILL CONTINUE TO MONITOR PATIENT.
--- NOTE | 2019-12-08 21:15 | NUR ---
MS RN NOTES PATIENT REMOVED CAP ON TRACH. DR STEARNS MADE AWARE AND STATES, IF PATIENT IS MORE COMFORTABLE WITHOUT CAP IN PLACE, IT IS OKAY TO LEAVE TRACH UN-CAPPED. WILL CONTINUE TO MONITOR PATIENT.
[2019-12-08] MEDS: SENNOSIDES 8.6 MG TABLET GT SCH (22:02)
[2019-12-08] MEDS: FENOFIBRATE NANOCRYS (145 MG) 145 MG TABLET GT SCH (22:03)
[2019-12-08] MEDS: ATORVASTATIN 40 MG TABLET PO SCH (22:03)
[2019-12-08] MEDS: MIRTAZAPINE 15 MG TABLET GT SCH (22:03)
[2019-12-08] MEDS: ACETAMINOPHEN 650 MG/20.3 ML UDC GT SCH (22:10)
[2019-12-09] MEDS: IPRATROPIUM NEB FS 0.5 MG/2.5 ML AMPUL.NEB NEB SCH ×4 (02:07→19:46)
[2019-12-09] MEDS: ALBUTEROL FS 2.5 MG/3 ML VIAL.NEB NEB SCH ×3 (02:07→12:58)
--- NOTE | 2019-12-09 07:32 | NUR ---
MS RN NOTES PATIENT IN BED RESTING COMFORTABLY. PATIENT TRACH IN PLACE, NO RESPIRATORY DISTRESS PRESENT, NO SIGNS OF SOB, WITH EVEN NON-LABORED BREATHING, AND ON ROOM AIR. PATIENT IV ACCESS IN PLACE AND INTACT. PATIENT COMPLAINS OF NO PAIN OR DISCOMFORT AT THIS TIME. PATIENT G-TUBE IN PLACE AND SITE KEPT CLEAN AND DRY. SKIN KEPT CLEAN AND DRY. SAFETY PRECAUTIONS IN PLACE WITH BED IN THE LOWEST POSITION, BED LOCKED, BILATERAL SIDE-RAILS UP, BED ALARM ON, AND BILATERAL SIDE RAILS UP. WILL ENDORSE KI TO UPCOMING DAYSHIFT NURSE.
--- NOTE | 2019-12-09 07:53 | NUR ---
MS RN NOTES PATIENT RECEIVED RESTING ON BED. SLEEPING, ABLE TO AROUSE THROUGH VERBAL AND TACTILE STIMULI. A/O X2. NO ACUTE DISTRESS. TRACH CAPPED. PATIENT BREATHING EVEN AND UNLABORED. NO C/O PAIN OR DISCOMFORT. SAFETY PRECAUTIONS IN PLACE. WILL CONTINUE TO MONITOR. BED LOCKED AND IN LOW POSITION. SIDE RAILS UP X 3. CALL LIGHT WITHIN EASY REACH
[2019-12-09 08:00] VITALS: BP 103/70
[2019-12-09] MEDS ORDERED: Z GUARD REMEDY 2 OZ OINT TP PRN (08:30)
--- NOTE | 2019-12-09 08:32 | NUR ---
WOUND CARE CONSULT: PT PRESENTS WITH BLANCHABLE REDNESS TO SACRAL AREA, PRESENT ON ADMISSION. RECOMMENDATIONS MADE FOR SKIN PROTECTION. DISCUSSED WITH NURSING STAFF. WILL SEE PRN. CORTES IN AGREEMENT WITH PLAN OF CARE. Addendum: 12/09/19 at 0836 by MATHEW FERNANDES WNDNU Amended: Links added.
[2019-12-09] MEDS: BENAZEPRIL HCL 20 MG TABLET GT SCH (08:55)
[2019-12-09] MEDS: CYCLOBENZAPRINE 10 MG TABLET GT SCH ×2 (08:56→17:06)
[2019-12-09] MEDS: Z GUARD REMEDY 2 OZ OINT TP SCH (08:57)
[2019-12-09] MEDS: FLUTICASONE PROPIONATE 16 GM BOTTLE NS SCH (08:58)
[2019-12-09] MEDS: PANTOPRAZOLE 40 MG/PACK PACK NG SCH (11:55)
[2019-12-09 16:00] VITALS: BP 107/70
[2019-12-09] MEDS ORDERED: ALBUTEROL FS 2.5 MG/3 ML VIAL.NEB NEB PRN (16:30)
[2019-12-09] MEDS: ENSURE ENLIVE 237 ML LIQUID (VANILLA) PO SCH (17:06)
--- NOTE | 2019-12-09 18:45 | NUR ---
MS RN NOTES PATIENT RESTING INSIDE ROOM. AWAKE, A/O X 2, REORIENTED NEEDED. NO ACUTE DISTRESS. NO C/O PAIN OR DISCOMFORT. NO FACIAL GRIMACE NOTED. PATIENT KEPT CLEAN, DRY AND COMFORTABLE. SAFETY PRECAUTIONS IN PLACE. MAINTAINED ASPIRATION PRECAUTIONS. WILL ENDORSE TO INCOMING SHIFT FOR KI. BED LOCKED AND IN LOW POSITION. SIDE RAILS UP X 3. CALL LIGHT WITHIN EASY REACH
--- NOTE | 2019-12-09 19:05 | NUR ---
MS RN NOTES RECEIVED PT IN BED AWAKE AND ABLE TO MAKE NEEDS KNOWN. PT A/O X2 WITH PERIODS OF CONFUSION. RESPIRATIONS EVEN AND UNLABORED WITH NO S/S OF ACUTE DISTRESS OR SOB NOTED. NO COMPLAINTS OF PAIN AT THIS TIME. SAFETY MEASURES IN PLACE WITH BED IN LOWEST LOCKED POSITION WITH SIDE RAILS UP X2. CALL LIGHT WITHIN REACH. WILL CONTINUE TO MONITOR.
[2019-12-09 20:00] VITALS: BP 116/81
--- NOTE | 2019-12-09 22:20 | NUR ---
Patient has trach capped, resides at [facility] [phone] . She is bed and chair bound, totally dependent with adl's. Current dc plan is to return to [facility] , bedhold x7days per SNF nurse Sandra. Addendum: 12/09/19 at 2220 by OLLIE SANCHEZ RN Amended: Links added.
[2019-12-09] MEDS: ATORVASTATIN 40 MG TABLET PO SCH (22:44)
[2019-12-09] MEDS: SENNOSIDES 8.6 MG TABLET GT SCH (22:44)
[2019-12-09] MEDS: MIRTAZAPINE 15 MG TABLET GT SCH (22:45)
[2019-12-09] MEDS: ACETAMINOPHEN 650 MG/20.3 ML UDC GT SCH (22:45)
[2019-12-09] MEDS: FENOFIBRATE NANOCRYS (145 MG) 145 MG TABLET GT SCH (22:45)
[2019-12-10] MEDS: IPRATROPIUM NEB FS 0.5 MG/2.5 ML AMPUL.NEB NEB SCH ×4 (01:41→19:30)
--- NOTE | 2019-12-10 07:32 | NUR ---
MS RN NOTES RECEIVED PT IN BED RESTING COMFORTABLY IN MODERATE HIGH BACK REST. AWAKE AND ABLE TO MAKE NEEDS KNOWN. A/O X2 WITH PERIODS OF CONFUSION. NO SIGNS OF DISTRESS NOTED AT THIS TIME. IV ACCESS ON RAC#18, SL. PATENT AND INTACT. SAFETY MEASURES IN PLACE WITH BED IN LOWEST LOCKED POSITION WITH SIDE RAILS UP X2. CALL LIGHT WITHIN REACH. WILL CONTINUE TO MONITOR.
--- NOTE | 2019-12-10 07:33 | NUR ---
MS RN NOTES PT IN BED AWAKE AND ABLE TO MAKE NEEDS KNOWN. PT A/O X2 WITH PERIODS OF CONFUSION. RESPIRATIONS EVEN AND UNLABORED WITH NO S/S OF ACUTE DISTRESS OR SOB NOTED THROUGHOUT SHIFT. PT KEPT CLEAN, DRY, AND COMFORTABLE. NO COMPLAINTS OF PAIN AT THIS TIME. SAFETY MEASURES IN PLACE WITH BED IN LOWEST LOCKED POSITION WITH SIDE RAILS UP X2. CALL LIGHT WITHIN REACH. WILL ENDORSE TO ONCOMING NURSE FOR KI.
[2019-12-10 08:00] VITALS: BP 118/66
[2019-12-10] MEDS: CYCLOBENZAPRINE 10 MG TABLET GT SCH ×2 (09:00→17:09)
[2019-12-10] MEDS: ASCORBIC ACID 500 MG TABLET GT SCH (09:01)
[2019-12-10] MEDS: FLUTICASONE PROPIONATE 16 GM BOTTLE NS SCH (09:02)
[2019-12-10] MEDS: BENAZEPRIL HCL 20 MG TABLET GT SCH (09:02)
[2019-12-10] MEDS: Z GUARD REMEDY 2 OZ OINT TP SCH (09:07)
[2019-12-10] MEDS: ENSURE ENLIVE 237 ML LIQUID (VANILLA) PO SCH ×3 (09:07→17:09)
[2019-12-10] MEDS: PANTOPRAZOLE 40 MG/PACK PACK NG SCH (10:11)
[2019-12-10] MEDS: FERROUS SULFATE UDC 300 MG/5 ML UDC GT SCH (10:11)
[2019-12-10 16:00] VITALS: BP 123/74
--- NOTE | 2019-12-10 18:40 | NUR ---
MS RN NOTES PATIENT IN BED RESTING COMFORTABLY IN MODERATE HIGH BACK REST. AWAKE AND ABLE TO MAKE NEEDS KNOWN. A/O X2 WITH PERIODS OF CONFUSION. NO SIGNS OF DISTRESS NOTED THROUGHOUT THE SHIFT. IV ACCESS ON RAC#18, SL. PATENT AND INTACT. SAFETY MEASURES IN PLACE WITH BED IN LOWEST LOCKED POSITION WITH SIDE RAILS UP X2. CALL LIGHT WITHIN REACH. WILL ENDORSE TO ANIMAL BOUNTY HUNTER NURSE FOR KI.
--- NOTE | 2019-12-10 19:53 | NUR ---
MS RN OPENING NOTE RECEIVED PATIENT IN BED. A/O X1 -2 . PER REPORT PATIENT IS CONFUSED. TOLERATING ROOM AIR. RESPIRATIONS ARE EVEN AND UNLABORED. NO S/S SOB NOTED. DENIES PAIN AT THIS TIME. IN NO APPARENT DISTRESS. IV ACCESS IN RAC#18 PATENT AND SALINE LOCKED. BED IS LOW AND LOCKED, HOB ELEVATED IN SEMI FOWLERS SIDE RIALS UP X2, BED ALARM ON. CALL LIGHT WITHIN REACH. WILL CONTINUE TO MONITOR.
[2019-12-10 20:00] VITALS: BP 149/72
[2019-12-10] MEDS: ATORVASTATIN 40 MG TABLET PO SCH (21:05)
[2019-12-10] MEDS: FENOFIBRATE NANOCRYS (145 MG) 145 MG TABLET GT SCH (21:05)
[2019-12-10] MEDS: ACETAMINOPHEN 650 MG/20.3 ML UDC GT SCH (21:05)
[2019-12-10] MEDS: MIRTAZAPINE 15 MG TABLET GT SCH (21:06)
[2019-12-10] MEDS: SENNOSIDES 8.6 MG TABLET GT SCH (21:06)
[2019-12-11] MEDS: IPRATROPIUM NEB FS 0.5 MG/2.5 ML AMPUL.NEB NEB SCH ×4 (01:29→19:27)
--- NOTE | 2019-12-11 06:16 | NUR ---
MS RN CLOSING NOTE PATIENT IN BED. A/O X1 -2 .PATIENT IS CONFUSED. TOLERATING ROOM AIR. RESPIRATIONS ARE EVEN AND UNLABORED. NO SOB NOTED. NO C/O OF PAIN THROUGHOUT SHIFT.NO DISTRESS NOTED. IV ACCESS MAINTAINED IN RAC#18 PATENT AND SALINE LOCKED. BED IS LOW AND LOCKED, HOB ELEVATED IN SEMI FOWLERS SIDE RIALS UP X2, BED ALARM ON. CALL LIGHT WITHIN REACH. WILL ENDORSE TO NEXT SHIFT
--- NOTE | 2019-12-11 07:24 | NUR ---
rn notes Patient received on room air, no sob noted, a/o x1 at this time and shows no s/s of pain. G tube for medications and is able to eat orally. RAC 18 SL. Patient denies chest pain at this time. Bed at the lowest setting, call light within reach, side rails up x2.
[2019-12-11 08:00] VITALS: BP 113/71
[2019-12-11] MEDS: CYCLOBENZAPRINE 10 MG TABLET GT SCH ×2 (08:24→16:14)
[2019-12-11] MEDS: BENAZEPRIL HCL 20 MG TABLET GT SCH (08:24)
[2019-12-11] MEDS: ENSURE ENLIVE 237 ML LIQUID (VANILLA) PO SCH ×3 (08:35→16:19)
[2019-12-11] MEDS: Z GUARD REMEDY 2 OZ OINT TP SCH (08:35)
[2019-12-11] MEDS: FLUTICASONE PROPIONATE 16 GM BOTTLE NS SCH (08:35)
[2019-12-11] MEDS: PANTOPRAZOLE 40 MG/PACK PACK NG SCH (11:40)
[2019-12-11 16:00] VITALS: BP 126/77
[2019-12-11] MEDS: ENOXAPARIN SODIUM 40 MG/0.4 ML DISP.SYRIN SQ SCH (16:14)
[2019-12-11 16:41] LABS: BASOPHILS % (AUTO) 0.4 % (0.0-2.0); EOSINOPHILS % (AUTO) 0.5 % (0.0-6.0); HEMATOCRIT 42 % (33-45); HEMOGLOBIN 13.7 g/dL (11.5-14.8); LYMPHOCYTES % (AUTO) 10.6 % (20.0-44.0); MEAN CORPUSCULAR HGB CONC 32 g/dl (31.0-36.0); MEAN CORPUSCULAR VOLUME 88 fL (82-100); MONOCYTES # (AUTO) 0.7 /CMM (0.1-1.30); MONOCYTES % (AUTO) 8.3 % (2.0-12.0); NEUTROPHILS # (AUTO) 7.2 /CMM (1.8-8.9); NEUTROPHILS % (AUTO) 80.2 % (43.0-81.0); PLATELET COUNT (AUTO) 296 /CMM (150-450); WHITE BLOOD COUNT (AUTO) 8.9 K/uL (4.3-11.0)
[2019-12-11 17:09] LABS: CALCIUM, SERUM 9.5 mg/dL (8.5-10.1); CREATININE 1.4 mg/dL (0.6-1.3); POTASSIUM 4.1 mmol/L (3.5-5.1)
--- NOTE | 2019-12-11 18:50 | NUR ---
rn closing notes patient remains on room air, no sob noted, a/o x1 at this time. G tube for medications, R AC 18 SL. Plan is to dc patient back to facility in 1 to 2 days from now. Bed at the lowest setting, call light within reach, side rails up x2. Will give report to NOC RN for KI bedside.
--- NOTE | 2019-12-11 19:20 | NUR ---
MS RN PM OPENING NOTE RECEIVED BEDSIDE REPORT FROM JA RN. PATIENT IN BED. A/O X2 . PT TOLERATING ROOM AIR TRACH IS CAPPED. RESPIRATIONS ARE EVEN AND UNLABORED. NO S/S SOB NOTED. PATIENT IN NO APPARENT DISTRESS. IV ACCESS IN RAC#18 PATENT AND SALINE LOCKED. PATIENT HAS 24 GAUGE TO RIGHT WRIST PATENT INTACT. BED IS LOW AND LOCKED POSITION, HOB ELEVATED IN SEMI FOWLERS SIDE RIALS UP X2, BED ALARM ON. CALL LIGHT WITHIN REACH. WILL CONTINUE TO MONITOR.
[2019-12-11 19:44] VITALS: BP 126/71
[2019-12-11] MEDS: FENOFIBRATE NANOCRYS (145 MG) 145 MG TABLET GT SCH (22:10)
[2019-12-11] MEDS: ACETAMINOPHEN 650 MG/20.3 ML UDC GT SCH (22:11)
[2019-12-11] MEDS: ATORVASTATIN 40 MG TABLET PO SCH (22:11)
[2019-12-11] MEDS: SENNOSIDES 8.6 MG TABLET GT SCH (22:11)
[2019-12-11] MEDS: MIRTAZAPINE 15 MG TABLET GT SCH (22:11)
[2019-12-12] MEDS: IPRATROPIUM NEB FS 0.5 MG/2.5 ML AMPUL.NEB NEB SCH ×4 (00:36→19:30)
--- NOTE | 2019-12-12 07:54 | NUR ---
rn opening notes received patient on room air, no sob noted, a/o x2 at this time. trach present and is plugged. G TUBE present for medication. R wrist 24 present. Bed at the lowest setting, call light within reach, side rails up x2
[2019-12-12] MEDS: Z GUARD REMEDY 2 OZ OINT TP SCH (08:25)
[2019-12-12] MEDS: BENAZEPRIL HCL 20 MG TABLET GT SCH (08:25)
[2019-12-12] MEDS: CYCLOBENZAPRINE 10 MG TABLET GT SCH ×2 (08:25→16:08)
[2019-12-12] MEDS: ENSURE ENLIVE 237 ML LIQUID (VANILLA) PO SCH ×3 (08:25→16:08)
[2019-12-12] MEDS: FLUTICASONE PROPIONATE 16 GM BOTTLE NS SCH (08:25)
[2019-12-12 09:04] VITALS: BP 105/65
[2019-12-12] MEDS: FERROUS SULFATE UDC 300 MG/5 ML UDC GT SCH (10:03)
[2019-12-12] MEDS: PANTOPRAZOLE 40 MG/PACK PACK NG SCH (10:03)
[2019-12-12] MEDS: ASCORBIC ACID 500 MG TABLET GT SCH (10:03)
[2019-12-12] MEDS: ENOXAPARIN SODIUM 40 MG/0.4 ML DISP.SYRIN SQ SCH (16:05)
[2019-12-12 16:54] VITALS: BP 136/91
--- NOTE | 2019-12-12 18:45 | NUR ---
rn closing notes Patient remains on room air, no sob noted, patient denies pain at this time. A/O x3 and is comfortable in her bed. Patient has a [facility] order that states for patient to be able to uncap her trach plug for comfort. R wrist 24, G tube is present for med pass. Bed at the lowest setting, call light within reach, side rails up x2. Will give report to NOC RN for KI bedside.
--- NOTE | 2019-12-12 19:24 | NUR ---
MS RN NOTES PATIENT RECEIVED IN BED LAYING COMFORTABLY, NO SIGNS OF PAIN OR DISCOMFORT. ALERT AND ORIENTED X 2. PATIENT ON ROOM AIR, TRACH IN PLACE WITH SITE CLEAN AND DRY. TOLERATING ROOM AIR, WITH NO SIGNS OF RESPIRATORY DISTRESS, NO SOB, AND WITH EVEN NON-LABORED BREATHING. PATIENT IV ACCESS INTACT AND IN PLACE, FLUSHED WITH NORMAL SALINE. PATIENT G-TUBE INTACT AND IN PLACE, NO SIGN OF DRAINAGE. SAFETY PRECAUTIONS IN PLACE WITH BED IN THE LOWEST POSITION, BED LOCKED, BED ALARM ON, BILATERAL SIDE RAILS UP, AND CALL LIGHT WITHIN EASY REACH OF THE PATIENT. WILL CONTINUE TO MONITOR PATIENT.
[2019-12-12 20:00] VITALS: BP 124/58
[2019-12-12 20:17] VITALS: BP 124/58
[2019-12-12] MEDS: ACETAMINOPHEN 650 MG/20.3 ML UDC GT SCH (22:25)
[2019-12-12] MEDS: MIRTAZAPINE 15 MG TABLET GT SCH (22:25)
[2019-12-12] MEDS: ATORVASTATIN 40 MG TABLET PO SCH (22:25)
[2019-12-12] MEDS: SENNOSIDES 8.6 MG TABLET GT SCH (22:25)
[2019-12-12] MEDS: FENOFIBRATE NANOCRYS (145 MG) 145 MG TABLET GT SCH (22:25)
[2019-12-13] MEDS: IPRATROPIUM NEB FS 0.5 MG/2.5 ML AMPUL.NEB NEB SCH ×4 (01:30→19:30)
--- NOTE | 2019-12-13 07:11 | NUR ---
MS RN NOTES PATIENT IN BED RESTING COMFORTABLY, ALERT AND ORIENTED X 2. NO SIGNS OF RESPIRATORY DISTRESS, NO SOB, WITH EVEN NON-LABORED BREATHING ON ROOM AIR. PATIENT TRACH IN PLACE AND CAPPED PER PATIENT REQUEST. PATIENT SKIN KEPT CLEAN AND DRY. IV ACCESS INTACT AND PATENT, SL ON RIGHT HAND. PATIENT G-TUBE INTACT AND SITE KEPT CLEAN AND DRY. PATIENT PRESENTS NO SIGNS OF DISCOMFORT AND PAIN. PROVIDED COMFORT MEASURES TO PATIENT. SAFETY PRECAUTIONS IN PLACE WITH BED IN THE LOWEST POSITION, BED ALARM ON, BED LOCKED, BILATERAL SIDE RAILS UP, AND CALL LIGHT WITHIN EASY REACH OF THE PATIENT. WILL ENDORSE KI TO UPCOMING DAYSHIFT NURSE.
--- NOTE | 2019-12-13 07:49 | NUR ---
MS RN OPENING NOTES RECEIVED PATIENT IN BED, AWAKE, A/O X2. PATIENT BREATHING ON ROOM AIR WITH NO RESPIRATORY DISTRESS OR SOB AT THIS TIME. HAS A TRACH PRESENT. AT THIS TIME IT IS CAPPED PER PATIENT REQUEST. PATIENT DENIES PAIN AT THE MOMENT. G-TUBE PRESENT. IT IS CLEAN AND IN PLACE. R WRIST SL GAUGE # 24 PRESENT AND INTACT. SAFETY PRECAUTIONS IN PLACE; BED IN LOW POSITION AND LOCKED, RAILS UP X2, HOB ELEVATED AT 45 DEGREES, CALL LIGHT WITHIN REACH WILL CONTINUE TO MONITOR PATIENT.
[2019-12-13 08:00] VITALS: BP 106/61
[2019-12-13] MEDS: BENAZEPRIL HCL 20 MG TABLET GT SCH (08:40)
[2019-12-13] MEDS: FLUTICASONE PROPIONATE 16 GM BOTTLE NS SCH (08:43)
[2019-12-13] MEDS: CYCLOBENZAPRINE 10 MG TABLET GT SCH ×2 (08:47→17:21)
[2019-12-13] MEDS: ENSURE ENLIVE 237 ML LIQUID (VANILLA) PO SCH ×3 (08:51→17:26)
[2019-12-13] MEDS: Z GUARD REMEDY 2 OZ OINT TP SCH (08:52)
[2019-12-13] MEDS: PANTOPRAZOLE 40 MG/PACK PACK NG SCH (10:47)
[2019-12-13] MEDS: ENOXAPARIN SODIUM 40 MG/0.4 ML DISP.SYRIN SQ SCH (15:21)
[2019-12-13 16:40] VITALS: BP 116/100
--- NOTE | 2019-12-13 18:55 | NUR ---
MS RN CLOSING NOTES PATIENT IN BED, AWAKE, WATCHING TV, A/O X2. PATIENT BREATHING ON ROOM AIR WITH NO RESPIRATORY DISTRESS OR SOB NOTED. HAS A TRACH PRESENT. AT THIS TIME IT IS CAPPED PER PATIENT REQUEST. PATIENT DENIES PAIN AT THE MOMENT. G-TUBE PRESENT. IT IS CLEAN AND IN PLACE. R WRIST SL GAUGE # 24 PRESENT AND INTACT. ALL NEEDS ATTENDED TO THROUGHOUT THE DAY. SAFETY PRECAUTIONS IN PLACE; BED IN LOW POSITION AND LOCKED, RAILS UP X2, HOB ELEVATED AT 45 DEGREES, CALL LIGHT WITHIN REACH. WILL ENDORSE TO REIMBURSEMENT LIAISON NURSE.
--- NOTE | 2019-12-13 19:25 | NUR ---
RN Notes Patient awake, alert and oriented x2,verbally responsive. HOB elevated, trach intact, capped, on room air with good saturation. Denies chest pain, SOB, nausea and vomiting. IV access on right wrist patent and intact. GT intact, clamped. Noted with left sided weakness. Safety measures and fall precaution in place, call light within reached. Will continue to monitor patient.
[2019-12-13 20:00] VITALS: BP 146/101
[2019-12-13 22:00] VITALS: BP 146/101
[2019-12-13] MEDS: MIRTAZAPINE 15 MG TABLET GT SCH (22:27)
[2019-12-13] MEDS: SENNOSIDES 8.6 MG TABLET GT SCH (22:27)
[2019-12-13] MEDS: ATORVASTATIN 40 MG TABLET PO SCH (22:28)
[2019-12-13] MEDS: FENOFIBRATE NANOCRYS (145 MG) 145 MG TABLET GT SCH (22:28)
[2019-12-13] MEDS: ACETAMINOPHEN 650 MG/20.3 ML UDC GT SCH (22:28)
[2019-12-14] MEDS: IPRATROPIUM NEB FS 0.5 MG/2.5 ML AMPUL.NEB NEB SCH ×3 (01:30→14:01)
--- NOTE | 2019-12-14 07:49 | NUR ---
MS/RN NOTE Patient is resting in bed, A/O x3 with periods of confusion, showing no signs of acute distress or SOB, saturating >95% on RA. Trach noted and capped. G-tube noted and clamped, flushing well with no residual. IV line in the right wrist is clean and intact s/l. Bed is in lowest position, side rails x3 in upright position, call light is within reach and patient is aware of how to call for assistance when needed. Fall, safety, and aspiration precautions enforced. Will continue with plan of care.
[2019-12-14 08:00] VITALS: BP 110/71
--- NOTE | 2019-12-14 08:41 | NUR ---
PT REFUSED RESP TX ATT. NO S/S OF SOB NOTED. WILL CONT TO MONITOR Addendum: 12/14/19 at 0841 by MACEY HIDALGO RT Amended: Links added.
[2019-12-14] MEDS: ASCORBIC ACID 500 MG TABLET GT SCH (09:35)
[2019-12-14] MEDS: CYCLOBENZAPRINE 10 MG TABLET GT SCH (09:35)
[2019-12-14 09:36] VITALS: BP 110/71
[2019-12-14] MEDS: BENAZEPRIL HCL 20 MG TABLET GT SCH (09:36)
[2019-12-14] MEDS: FERROUS SULFATE UDC 300 MG/5 ML UDC GT SCH (09:36)
[2019-12-14] MEDS: Z GUARD REMEDY 2 OZ OINT TP SCH (09:36)
[2019-12-14] MEDS: ENSURE ENLIVE 237 ML LIQUID (VANILLA) PO SCH ×2 (09:36→12:22)
[2019-12-14] MEDS: FLUTICASONE PROPIONATE 16 GM BOTTLE NS SCH (09:38)
[2019-12-14] MEDS: PANTOPRAZOLE 40 MG/PACK PACK NG SCH (11:18)
--- NOTE | 2019-12-14 14:30 | NUR ---
MS/MOTOR COACH DRIVER NOTE Patient is medically stable for discharge, A/O x3 with periods of confusion, showing no signs of acute distress or SOB, stable on RA. IV line removed, ID band removed. Photos taken and placed in chart. Report given to Teena at [facility]. All patient needs met, all due meds given, patient kept clean and comfortable throughout shift. Patient left unit with EMS en route to [facility].
== END 2019-12-14 15:00 | DRG 190 ==
LOC: ER 22:19 → TELE 12-08 00:21 → MED 12-08 09:10
PROVIDERS: ADMIT Internal Medicine; ATTEND Internal Medicine
DX: I21.4 Non-ST elevation (NSTEMI) myocardial infarction (principal); J96.10 Chronic respiratory failure, unspecified whether with hypoxia or hypercapnia; E11.22 Type 2 diabetes mellitus with diabetic chronic kidney disease; F25.9 Schizoaffective disorder, unspecified; I25.110 Atherosclerotic heart disease of native coronary artery with unstable angina pectoris; I25.2 Old myocardial infarction; I12.9 Hypertensive chronic kidney disease with stage 1 through stage 4 chronic kidney disease, or unspecified chronic kidney disease; E78.5 Hyperlipidemia, unspecified; Z79.51 Long term (current) use of inhaled steroids; Z79.82 Long term (current) use of aspirin; Z79.4 Long term (current) use of insulin; N18.3 Chronic kidney disease, stage 3 (moderate); E78.1 Pure hyperglyceridemia; Z86.79 Personal history of other diseases of the circulatory system; Z79.899 Other long term (current) drug therapy; Z86.73 Personal history of transient ischemic attack (TIA), and cerebral infarction without residual deficits; G81.94 Hemiplegia, unspecified affecting left nondominant side; D63.8 Anemia in other chronic diseases classified elsewhere; D50.9 Iron deficiency anemia, unspecified; M17.12 Unilateral primary osteoarthritis, left knee; G89.29 Other chronic pain; Z98.890 Other specified postprocedural states; R13.10 Dysphagia, unspecified
CPT/HCPCS: 36415; 71045-TC; 80048-TC; 80076-TC; 82550-TC; 83880; 84484-TC; 85025-TC; 85730-TC; 87081-TC; 93307-TC; 94799-TC; G0378; J1650; J7030

== ENCOUNTER 2020-01-22 18:31 | Emergency (ER) | payer OTHER ==
[~2020-01-22] VITALS: Ht 154.9 cm; Wt 49.9 kg
[~2020-01-22 18:31] MED LIST changes: +ACET-2605 GT; -ASPI-1169 GT; -BENA10TA74 GT; +BENA20TA9 GT; -CHOL100044 GT; +CYCL5TAB GT; +DICL100G16 TP; +FLUT16SP; -FOLI1TAB16 GT; +GUAI100S11 GT; -INSU100I26 SQ; -LABE100T5 GT; +LANS30CA56 GT; +MIRT15TA GT; -NUT.237L30 GT; -PRAV40TA3 GT; +ROSU40TA23 GT; +SENN-261 GT; -VITA1TAB56 GT
--- NOTE | 2020-01-22 18:46 | NUR ---
pt rec;'d to er via ems [facility] c/o cp sr monitors applied pt lethatgic wakes up to stimuli. trach capped off . iv left hand 20g flushes well
--- NOTE | 2020-01-22 18:52 | NUR ---
PT HAS G TUBE AWAITING EVALUATION BY ER PROVIDER.
--- NOTE | 2020-01-22 19:25 | NUR ---
REPORT RECEIVED FROM JOSIE VOGT
[2020-01-22 19:38] LABS: BASOPHILS % (AUTO) 0.6 % (0.0-2.0); EOSINOPHILS % (AUTO) 0.9 % (0.0-6.0); HEMATOCRIT 40 % (33-45); LYMPHOCYTES # (AUTO) 1.2 /CMM (0.8-4.8); LYMPHOCYTES % (AUTO) 19.3 % (20.0-44.0); MEAN CORPUSCULAR HGB CONC 33 g/dl (31.0-36.0); MEAN CORPUSCULAR VOLUME 89 fL (82-100); MONOCYTES # (AUTO) 0.4 /CMM (0.1-1.30); MONOCYTES % (AUTO) 6.4 % (2.0-12.0); NEUTROPHILS # (AUTO) 4.6 /CMM (1.8-8.9); NEUTROPHILS % (AUTO) 72.8 % (43.0-81.0); PLATELET COUNT (AUTO) 402 /CMM (150-450); RED BLOOD CELL COUNT(AUTO) 4.48 MIL/uL (4.0-5.2); WHITE BLOOD COUNT (AUTO) 6.3 K/uL (4.3-11.0)
[2020-01-22 19:44] LABS: CARBON DIOXIDE 25 mmol/L (21-32); CHLORIDE 105 mmol/L (98-107); CREATININE 1.4 mg/dL (0.6-1.3); GLUCOSE 91 mg/dL (74-106); POTASSIUM 3.8 mmol/L (3.5-5.1); SODIUM SERUM 139 mmol/L (136-145); UREA NITROGEN, BLOOD 29 mg/dL (7-18)
[2020-01-22 19:57] LABS: CALCIUM, SERUM 9.3 mg/dL (8.5-10.1)
--- NOTE | 2020-01-22 20:03 | NUR ---
CALLED DR STEARNS, LEFT VOICEMAIL
--- NOTE | 2020-01-22 20:18 | NUR ---
[id number], RES#[id number]
--- NOTE | 2020-01-22 20:28 | NUR ---
Marty alvarez in [facility] - 01/22/20 at 2028 by DIEGO REPORT GIVEN TO JOSIE TAYLOR FOR KI
[2020-01-22] MEDS ORDERED: IV NS 0.9% 1,000 ML BAG IV ONE (21:00)
--- NOTE | 2020-01-22 21:31 | NUR ---
REPORT GIVEN TO EMS
--- NOTE | 2020-01-22 21:32 | NUR ---
PT TRANSFERRED BACK TO FACILITY IN STABLE CONDITION
[2020-01-22 21:40] VITALS: BP 106/50
== END 2020-01-22 21:40 ==
LOC: ER 18:38
DX: R07.89 Other chest pain (principal); I10 Essential (primary) hypertension; E78.5 Hyperlipidemia, unspecified; K21.9 Gastro-esophageal reflux disease without esophagitis; E11.9 Type 2 diabetes mellitus without complications; F25.9 Schizoaffective disorder, unspecified; Z79.899 Other long term (current) drug therapy; Z93.0 Tracheostomy status
CPT/HCPCS: 36415; 71045-TC; 80048-TC; 84484-TC; 85025-TC; J7030

== ENCOUNTER 2020-03-16 13:51 | Emergency (ER) | payer OTHER ==
[~2020-03-16] VITALS: Ht 149.9 cm; Wt 44.5 kg
[2020-03-16] MEDS ORDERED: ATOR40TA GT (14:32)
[2020-03-16] MEDS ORDERED: DICL100G16 TP (14:32)
[2020-03-16] MEDS ORDERED: METO5SOL GT (14:32)
[2020-03-16] MEDS ORDERED: PROM118S5 GT (14:32)
[2020-03-16] MEDS ORDERED: TRAZ-182 GT (14:32)
[2020-03-16] MEDS ORDERED: PANT40SU2 GT (14:32)
[2020-03-16] MEDS ORDERED: MELA3TAB41 GT (14:32)
[2020-03-16] MEDS ORDERED: ALBU6.7H9 IH ×2 (14:32)
--- NOTE | 2020-03-16 14:51 | NUR ---
Line started on L upper arm g 20, blood drawn from line and sent to lab
--- NOTE | 2020-03-16 15:00 | NUR ---
BIB ra frm snf c/o l sided chest pain, non radiating, since this morning. patient a/ox2-3, breathing even and unlabored, trache on cool aerosol. No distress noted.
[2020-03-16 15:45] LABS: BASOPHILS % (AUTO) 0.6 % (0.0-2.0); EOSINOPHILS % (AUTO) 2.1 % (0.0-6.0); HEMATOCRIT 41 % (33-45); HEMOGLOBIN 12.8 g/dL (11.5-14.8); LYMPHOCYTES # (AUTO) 2.1 /CMM (0.8-4.8); LYMPHOCYTES % (AUTO) 34.8 % (20.0-44.0); MEAN CORPUSCULAR HGB CONC 32 g/dl (31.0-36.0); MEAN CORPUSCULAR VOLUME 90 fL (82-100); MONOCYTES # (AUTO) 0.5 /CMM (0.1-1.30); MONOCYTES % (AUTO) 9.1 % (2.0-12.0); NEUTROPHILS # (AUTO) 3.2 /CMM (1.8-8.9); NEUTROPHILS % (AUTO) 53.4 % (43.0-81.0); PLATELET COUNT (AUTO) 458 /CMM (150-450); RED BLOOD CELL COUNT(AUTO) 4.51 MIL/uL (4.0-5.2); WHITE BLOOD COUNT (AUTO) 5.9 K/uL (4.3-11.0)
[2020-03-16 15:51] LABS: CALCIUM, SERUM 9.5 mg/dL (8.5-10.1); CREATININE 1.3 mg/dL (0.6-1.3); POTASSIUM 4.4 mmol/L (3.5-5.1)
--- NOTE | 2020-03-16 16:14 | NUR ---
Patient resting, no distress noted. Needs attended.
--- NOTE | 2020-03-16 19:32 | NUR ---
endorsed to Rakan rasmussen for erick
--- NOTE | 2020-03-16 19:46 | NUR ---
2100 ETA FOR [facility]. RESERVATION NUMBER [id number].
--- NOTE | 2020-03-17 00:20 | NUR ---
REPORT GIVEN TO [facility] TRANSPORT TEAM FOR KI. AND TRANSFERRING RESPONSIBILTIES.
--- NOTE | 2020-03-17 00:26 | NUR ---
REPORT GIVEN TO ALLI GALINDO AT [facility] FOR KI.
--- NOTE | 2020-03-17 00:39 | NUR ---
JOSE BAXTER) OF [facility] IN REGARDS TO [facility] R.N. NOT WILLING TO ACCEPT PATIENT INTO FACILITY. PATIENT IS MEDICALLY CLEARED FOR DISCHARGE.
[2020-03-17 00:48] VITALS: BP 137/77
--- NOTE | 2020-03-17 00:48 | NUR ---
Patient discharged to home in stable condition. Written and verbal after care instructions given. Patient verbalizes understanding of instruction.
--- NOTE | 2020-03-17 00:48 | NUR ---
IV removed. Catheter intact and site benign. Pressure and 4x4 applied to site. No bleeding noted.
--- NOTE | 2020-03-17 01:20 | NUR ---
Dr Villanueva spoke with Emilie Pinedo NP regarding patient beiong discharged back to [facility]. Emilie Pinedo NP agrees that patient does not require inpatient admission and should be discharged back to facility.
== END 2020-03-17 00:49 | disposition home or self-care (01) ==
LOC: ER 13:56
DX: R07.89 Other chest pain (principal); R06.02 Shortness of breath; G93.40 Encephalopathy, unspecified; I10 Essential (primary) hypertension; E78.5 Hyperlipidemia, unspecified; K21.9 Gastro-esophageal reflux disease without esophagitis; I12.9 Hypertensive chronic kidney disease with stage 1 through stage 4 chronic kidney disease, or unspecified chronic kidney disease; E11.22 Type 2 diabetes mellitus with diabetic chronic kidney disease; N18.9 Chronic kidney disease, unspecified; F25.9 Schizoaffective disorder, unspecified; Z98.890 Other specified postprocedural states; Z93.1 Gastrostomy status; Z79.899 Other long term (current) drug therapy
CPT/HCPCS: 36415; 71045-TC; 80048-TC; 84484-TC; 85025-TC

== ENCOUNTER 2021-10-06 23:04 | Inpatient (IN) | payer OTHER ==
[~2021-10-06] VITALS: Ht 152.4 cm; Wt 44.1 kg
[~2021-10-06 23:04] MED LIST changes: +ALBU6.7H9 IH; -ASCO500S2 GT; +ATOR40TA GT; -FERR300L GT; -FLUT16SP; -GUAI100S11 GT; -IPRA3AMP23 IH; -LANS30CA56 GT; +MELA3TAB41 GT; +METO5SOL GT; +MIRT-121 GT; -MIRT15TA GT; +PANT40SU2 GT; +PROM118S5 GT; -ROSU40TA23 GT; +TRAZ-182 GT
--- NOTE | 2021-10-06 23:07 | NUR ---
[id number] PT BROUGHT IN FROM SNF FOR DESATURATION AND TACHYCARDIA REPORTED HR 150 SATTING 100% ON 5 LPM VIA TRACH: T PIECE. PT A/OX1; NONVERBAL. GTUBE PATENT AND INTACT. LLE CONTRACTED. CONNECTED PT TO POX AND MONITOR. SAFETY MEASURES IN PLACE.
[2021-10-06] MEDS ORDERED: IV NS 0.9% 1,000 ML BAG IV ONE (23:30)
[2021-10-06] MEDS ORDERED: ACETAMINOPHEN 650 MG/SUPP.RECT RC ONE ×2 (23:30→23:47)
[2021-10-06] MEDS ORDERED: CEFEPIME 1 GM in IV D5W 50 ML IV ONE (23:30)
[2021-10-06] MEDS ORDERED: VANCOMYCIN 1 GM in IV D5W 250 ML IV ONE (23:30)
--- NOTE | 2021-10-06 23:45 | NUR ---
LAC #20G S/L; PATENT AND INTACT. BLOOD COLLECTED AND SENT TO LAB.
[2021-10-06] MEDS ORDERED: CEFEPIME 1 GM VIAL ONE (23:46)
[2021-10-06] MEDS ORDERED: VANCOMYCIN 1 GM VIAL ONE (23:47)
--- NOTE | 2021-10-06 23:55 | NUR ---
RECTAL TEMP 102.6 - LAW AWARE.
[2021-10-06 23:57] LABS: BASOPHILS % (AUTO) 0.1 % (0.0-2.0); EOSINOPHILS % (AUTO) 0.1 % (0.0-6.0); HEMATOCRIT 33 % (33-45); HEMOGLOBIN 10.6 g/dL (11.5-14.8); LYMPHOCYTES % (AUTO) 3.7 % (20.0-44.0); MEAN CORPUSCULAR HGB CONC 32 g/dl (31.0-36.0); MEAN CORPUSCULAR VOLUME 83 fL (82-100); MONOCYTES % (AUTO) 7.7 % (2.0-12.0); NEUTROPHILS # (AUTO) 22.8 K/uL (1.8-8.9); NEUTROPHILS % (AUTO) 88.4 % (43.0-81.0); PLATELET COUNT (AUTO) 493 K/uL (150-450); RED BLOOD CELL COUNT(AUTO) 3.97 MIL/uL (4.0-5.2); WHITE BLOOD COUNT (AUTO) 25.8 K/uL (4.3-11.0)
--- NOTE | 2021-10-07 00:04 | NUR ---
FLIGHT INFORMATION EXPEDITER AT PT'S BEDSIDE
--- NOTE | 2021-10-07 00:11 | NUR ---
Note kim in EDM - 10/07/21 at 0029 by UNIQUE [id number] PT BROUGHT IN FROM SNF FOR DESATURATION AND TACHYCARDIA REPORTED HR 150 SATTING 100% ON 5 LPM VIA TRACH: T PIECE. PT A/OX1; NONVERBAL. GTUBE PATENT AND INTACT. LLE CONTRACTED. CONNECTED PT TO POX AND MONITOR. SAFETY MEASURES IN PLACE.
[2021-10-07 00:14] LABS: CALCIUM, SERUM 9.6 mg/dL (8.5-10.1); CREATININE 2.9 mg/dL (0.6-1.3); POTASSIUM 4.9 mmol/L (3.5-5.1)
[2021-10-07 00:18] LABS: ALANINE AMINOTRANSFERASE 27 U/L (12-78); ALBUMIN 3.2 g/dL (3.4-5.0); ALKALINE PHOSPHATASE 75 U/L (46-116); ASPARTATE AMINOTRANSFERASE 33 U/L (15-37); BILIRUBIN,DIRECT 0.6 mg/dL (0.0-0.2); TOTAL PROTEIN, SERUM 9.1 g/dL (6.4-8.2)
--- NOTE | 2021-10-07 00:23 | NUR ---
LACTIC ACID - 7. LAW CORTES AWARE.
[2021-10-07] MEDS ORDERED: IV NS 0.9% 1,000 ML IV ONE (00:30)
--- NOTE | 2021-10-07 00:47 | NUR ---
jacobsen cath inserted per . urine collected and sent to lab
[2021-10-07 00:54] LABS: D-DIMER 2.58 mg/L(FEU (0.17-0.50)
[2021-10-07 01:14] LABS: BILIRUBIN,URINE NEGATIVE (NEGATIVE); COLOR,URINE YELLOW (YELLOW); LEUKOCYTE ESTERASE ,URINE LARGE (NEGATIVE); NITRITE, URINE NEGATIVE (NEGATIVE); PH,URINE 6.5 (5.0-8.0); PROTEIN,URINE 100 mg/dl (NEGATIVE); UGLUCOSE NEGATIVE (NEGATIVE); UROBILINOGEN,URINE 0.2 EU/dL (0.2)
[2021-10-07 01:20] LABS: BACTERIA,URINE Many /HPF (None Seen); SQUAMOUS EPITHELIAL CELL,UR Few /HPF (None Seen)
[2021-10-07 01:21] LABS: RBC,URINE 21-50 /HPF (0-2); WBC,URINE TOO NUMEROUS TO COUN /HPF (0-3)
--- NOTE | 2021-10-07 01:57 | NUR ---
PAGED DR JINNY HIGHTOWER. AWAITING FRO HIS CALL BACK.
--- NOTE | 2021-10-07 02:01 | NUR ---
REC'D A CALL FROM DR JINNY HIGHTOWER, REQUESTING TO PRESENT THE PT TO PANEL
--- NOTE | 2021-10-07 02:25 | NUR ---
dr Burgos on the phone w/ Dr Angel for urology consult
--- NOTE | 2021-10-07 03:00 | NUR ---
MRSA SWAB COLLECTED AND SENT TO LAB. PATIENT'S BELONGINGS LIST DONE.
[2021-10-07] MEDS ORDERED: MAG HYDROX/AL HYDROX/SIMETH 30 ML UDC PO PRN (03:30)
[2021-10-07] MEDS ORDERED: IV 1/2NS 1000 ML 1,000 ML IV PRN (03:30)
[2021-10-07] MEDS ORDERED: ONDANSETRON HCL/PF 4 MG/2 ML VIAL IVP PRN (03:30)
[2021-10-07] MEDS ORDERED: MAGNESIUM HYDROXIDE 30 ML UDC PO PRN (03:30)
[2021-10-07] MEDS ORDERED: Z GUARD REMEDY 4 OZ OINT TP PRN (03:30)
[2021-10-07] MEDS ORDERED: ALBUTEROL SULFATE INH 18 GM HFA.AER.AD IH PRN (03:30)
--- NOTE | 2021-10-07 04:26 | NUR ---
PT IN BED SLEEPING. NO DISTRESS NOTED
[2021-10-07] MEDS ORDERED: INSU100I26 SQ (07:49)
[2021-10-07] MEDS ORDERED: AMLO2.5T4 GT (07:49)
[2021-10-07] MEDS ORDERED: CLOP75TA15 GT (07:49)
[2021-10-07] MEDS ORDERED: CHLO473M5 MM (07:49)
[2021-10-07] MEDS ORDERED: FLUD0.1T GT (07:49)
[2021-10-07] MEDS ORDERED: FERR300L GT (07:49)
[2021-10-07] MEDS ORDERED: METO25TA20 GT (07:49)
[2021-10-07] MEDS ORDERED: METF-440 GT (07:49)
[2021-10-07] MEDS ORDERED: TAMS-12 GT (07:49)
--- NOTE | 2021-10-07 07:59 | NUR ---
ROOM 112-1
--- NOTE | 2021-10-07 08:09 | NUR ---
REPORT GIVEN TO NURSE HERNÁNDEZ FOR KI
--- NOTE | 2021-10-07 08:15 | NUR ---
PIPELINE MAINTENANCE SUPERVISOR NOTES RECEIVED PT FROM ED, REPORT RECEIVED FROM JOSE R RN. PT IS ALERT AND ORIENTED X1, NON-VERBAL;ABLE TO NOD YES AND NO. NO S/SX OF DISTRESS. NO SOB. PT IS ON 7L WITH T-PIECE, SATURATING AT 100%. HOOKED PT UP TO EXTERNAL SIZER MACHINE WITH READING SR. SKIN CHECK DONE. IV ACCESS LAC#20 PATENT AND INTACT. SAFETY MEASURES IN PLACE WITH BED LOCKED AT LOW POSITION AND SIDE RAILS UP X 2. ORIENTED PT TO UNIT, STAFF AND CALL LIGHT. WILL CONTINUE TO MONITOR PT THROUGHOUT SHIFT.
[2021-10-07] MEDS: IV D5/ 0.9% NACL 1,000 ML IV PRN (10:25)
[2021-10-07] MEDS: PIPERACILLIN /TAZOBACTAM 2.25 G in IV D5W 50 ML IV SCH ×2 (11:37→17:11)
[2021-10-07] MEDS: ALBUTEROL SULFATE INH 18 GM HFA.AER.AD IH SCH ×2 (12:12→16:13)
[2021-10-07] MEDS ORDERED: DEXTROSE 50%-WATER 50 ML DISP.SYRIN IV PRN (12:30)
[2021-10-07] MEDS: BLOOD SUGAR DIAGNOSTIC 1 EACH STRIP IN SCH (17:11)
--- NOTE | 2021-10-07 18:51 | NUR ---
RN CLOSING NOTES PT IS RESTING IN BED. A/O X 2 , NON-VERBAL, ABLE TO FOLLOW SOME COMMANDS, ABLE NOD YES AND NO. PT REMAINED STABLE THROUGHOUT SHIFT. NO SOB. NO S/SX OF DISTRESS. IV ACCESS PATENT AND INTACT. G-TUBE PATENT AND INTACT WITH GLUCERNA 1.2 RUNNING AT 50MLS/HR. SAFETY PRECAUTIONS MAINTAINED. CALL LIGHT IS WITHIN REACH. WILL ENDORSE CONTINUITY OF CARE TO ONCOMING SHIFT.
--- NOTE | 2021-10-07 19:15 | NUR ---
RN OPENING NOTES RECEIVED PATIENT ON BED A/O X 1, NON VERBAL , RESPIRATORY EVEN AND UNLABORED, ON T-PIECE AT 3LPM TOLERATING WELL, NO SOB NOTED, NO S/S OF DISTRESS NOTED. PATIENT NOTED WITH LAC PERIPHERAL LINE G#20 INTACT PATENT AND FLUSHING WELL. RUNNING ON D5 NS @ 75CC/HR. ON GTUBE, PATENT INTACT WITH NO RESIDUAL NOTED UPON ASPIRATION, HEAD OF BED KEPT ELEVATED AND RUNNING WITH GLUCERNA 1.2 @ 50CC/HR TOLERATING WELL. BED IN LOWEST POSITION LOCKED AND BED ALARM ARMED. WILL CONTINUE TO MONITOR. ENDORSED TO NEXT SHIFT.
[2021-10-07 20:00] VITALS: BP 127/63
[2021-10-07] MEDS ORDERED: MEROPENEM 500 MG VIAL IV ONE (21:36)
[2021-10-07] MEDS: MEROPENEM 500 MG in IV NS 0.9% 50 ML IV SCH (21:42)
[2021-10-08] VITALS: BP 133/64
[2021-10-08] MEDS: INSULIN REGULAR, HUMAN 100 UNIT/ML 3 ML VIAL SQ PRN ×4 (00:23→17:07)
[2021-10-08] MEDS: BLOOD SUGAR DIAGNOSTIC 1 EACH STRIP IN SCH ×4 (00:26→17:07)
--- NOTE | 2021-10-08 01:15 | NUR ---
RN NOTES PATIENT NOTED WITH TEMP. 99.6, COOLING MEASURE DONE, ADMINISTER ACETAMINOPHEN 650MG VIA GTUBE PER MD'S ORDER. WILL CONTINUE TO MONITOR THROUGH OUT THE SHIFT.
[2021-10-08] MEDS: ACETAMINOPHEN 325 MG TABLET PO PRN (01:22)
[2021-10-08] MEDS: IV D5/ 0.9% NACL 1,000 ML IV PRN ×2 (01:50→14:32)
--- NOTE | 2021-10-08 02:15 | NUR ---
RN NOTES TEMPERATURE RECHECKED AND OBTAINED 99.1 'F, WILL CONTINUE TO MONITOR THROUGH OUT THE SHIFT
[2021-10-08 04:00] VITALS: BP 116/70
--- NOTE | 2021-10-08 06:56 | NUR ---
RN CLOSING NOTES PATIENT REMAIN STABLE THROUGH OUT THE NIGHT, RESPIRATORY EVEN AND UNLABORED, ON T-PIECE AT 3LPM TOLERATING WELL, NO SOB NOTED, NO S/S OF DISTRESS NOTED. PATIENT NOTED WITH LAC PERIPHERAL LINE G#20 INTACT PATENT AND FLUSHING WELL. RUNNING ON D5 NS @ 75CC/HR. ON GTUBE, PATENT INTACT WITH NO RESIDUAL NOTED UPON ASPIRATION, HEAD OF BED KEPT ELEVATED AND RUNNING WITH GLUCERNA 1.2 @ 50CC/HR TOLERATING WELL. ALL DUE MEDS GIVEN ORDERED. BED IN LOWEST POSITION LOCKED AND BED ALARM ARMED. WILL CONTINUE TO MONITOR. ENDORSED TO NEXT SHIFT.
--- NOTE | 2021-10-08 07:20 | NUR ---
RN OPENING NOTES; RECEIVED PT IN BED IN SUPINE POS. A/OX1, PT NON VERBAL. NO SIGNS OF PAIN OR DISTRESS. PT ABLE TO NOD WHEN ASKED IS SHE IN PAIN. PT ON GLUCERNA, @50ML/HR. LAC#20 NOTED, RUNNING NS @75CC/HR. ALL SAFETY MEASURES RENDERED, BED IN LOWEST POS. LOCKED, SIDERAILS X3 WITH CALL LIGHT WITHIN REACH. WILL CONTINUE TO MONITOR.
[2021-10-08 08:00] VITALS: BP 126/64
[2021-10-08] MEDS: MEROPENEM 500 MG in IV NS 0.9% 50 ML IV SCH ×2 (08:04→20:48)
[2021-10-08 08:41] LABS: BASOPHILS % (AUTO) 0.2 % (0.0-2.0); CALCIUM, SERUM 8.8 mg/dL (8.5-10.1); CREATININE 1.9 mg/dL (0.6-1.3); EOSINOPHILS % (AUTO) 1.2 % (0.0-6.0); HEMATOCRIT 24 % (33-45); HEMOGLOBIN 7.7 g/dL (11.5-14.8); LYMPHOCYTES % (AUTO) 11.2 % (20.0-44.0); MAGNESIUM 2.4 mg/dL (1.8-2.4); MEAN CORPUSCULAR HGB CONC 33 g/dl (31.0-36.0); MEAN CORPUSCULAR VOLUME 84 fL (82-100); MONOCYTES # (AUTO) 1.1 K/uL (0.1-1.30); MONOCYTES % (AUTO) 12.4 % (2.0-12.0); NEUTROPHILS # (AUTO) 6.8 K/uL (1.8-8.9); PHOSPHORUS 2.8 mg/dL (2.5-4.9); PLATELET COUNT (AUTO) 331 K/uL (150-450); RED BLOOD CELL COUNT(AUTO) 2.81 MIL/uL (4.0-5.2); WHITE BLOOD COUNT (AUTO) 9.1 K/uL (4.3-11.0)
[2021-10-08] MEDS: ALBUTEROL SULFATE INH 18 GM HFA.AER.AD IH SCH ×2 (09:00→16:40)
[2021-10-08 12:00] VITALS: BP 132/75
[2021-10-08 16:00] VITALS: BP 110/70
--- NOTE | 2021-10-08 18:31 | NUR ---
RN CLOSING NOTES; PT IN BED IN SUPINE POS. PT A/OX2, PT IS NON VERBAL. BUT RESPONDS BY NODDING HEAD, AND USING HAND GESTURES. PT ON T PIECE AT 3LPM, NO SOB NOTED, NO C/O PAIN AT THIS TIME. NO DISTRESS NOTED. ALL MEDICATIONS GIVEN, AND TOLERATED WELL. PT KEPT CLEAN, DRY AND COMFORTABLE. ALL SAFETY MEASURES RENDERED, BED IN LOWEST POS. LOCKED, SIDE RAILSX3 WITH CALL LIGHT WITHIN REACH. NO SIGNIFICANT CHANGES TO PT HEALTH STATUS ON SHIFT. WILL ENDORSE TO SEWER AND CUTTER FINGER BUFF MATERIAL RN. PT IN STABLE CONDITION.
[2021-10-08 20:00] VITALS: BP 141/80
--- NOTE | 2021-10-08 20:00 | NUR ---
HOSIERY MENDER NOTE PT IN BED AWAKE. NON VERBAL, ABLE TO USE FACIAL EXPRESSIONS TO COMMUNICATED. NO DISTRESS OR DISCOMFORT NOTED. DENIES PAIN. ON T PIECE 3LPM O2 SAT 97%. GTF INFUSING WELL AT 50 ML/HR, 0 ML RESIDUAL NOTED. KEPT HER DRY AND CLEAN. ALL NEEDS ATTENDED. SIDE RAILS UP X 2 AND CALL LIGHT WITHIN REACH. CONTINUE TO MONITOR HER. VSS.
[2021-10-08] MEDS: GLUCERNA GT PRN (22:13)
[2021-10-08] MEDS ORDERED: VANCOMYCIN 500 MG in IV D5W 100 ML IV SCH (23:00)
[2021-10-09] VITALS: BP 147/79
[2021-10-09] MEDS: ACETAMINOPHEN 325 MG TABLET PO PRN (00:18)
--- NOTE | 2021-10-09 00:20 | NUR ---
EMERGENCY DEPARTMENT NOTE PT IS WITH LOW GRADE FEVER 100.8. TYLENOL 650 MG VIA GT GIVEN. INCONTINENCE CARE GIVEN.
[2021-10-09] MEDS: BLOOD SUGAR DIAGNOSTIC 1 EACH STRIP IN SCH ×4 (00:22→17:33)
[2021-10-09] MEDS: INSULIN REGULAR, HUMAN 100 UNIT/ML 3 ML VIAL SQ PRN ×3 (00:35→17:18)
--- NOTE | 2021-10-09 01:20 | NUR ---
CRATE TIER NOTE PT IN BED AWAKE. FEVER SUBSIDED 99.8. CONTINUE TO MONITOR HER.
[2021-10-09 04:00] VITALS: BP 136/69
--- NOTE | 2021-10-09 07:01 | NUR ---
RN OPENING NOTES; RECEIVED PT IN BED IN R LYING POS. A/OX1-2, PT NON VERBAL. NO SIGNS OF PAIN OR DISTRESS. PT ABLE TO EXPRESS SELF BY NODDING AND USING HAND GESTURES. PT ON GLUCERNA, @50ML/HR. LAC#20 NOTED, RUNNING NS @75CC/HR. ALL SAFETY MEASURES RENDERED, BED IN LOWEST POS. LOCKED, SIDERAILS X3 WITH CALL LIGHT WITHIN REACH. WILL CONTINUE TO MONITOR.
[2021-10-09] MEDS: MEROPENEM 500 MG in IV NS 0.9% 50 ML IV SCH ×2 (07:16→19:51)
[2021-10-09] MEDS: IV D5/ 0.9% NACL 1,000 ML IV PRN (07:18)
[2021-10-09 07:47] LABS: BASOPHILS % (AUTO) 0.4 % (0.0-2.0); EOSINOPHILS % (AUTO) 4.1 % (0.0-6.0); HEMATOCRIT 25 % (33-45); HEMOGLOBIN 8.1 g/dL (11.5-14.8); LYMPHOCYTES # (AUTO) 1.2 K/uL (0.8-4.8); MEAN CORPUSCULAR HGB CONC 32 g/dl (31.0-36.0); MEAN CORPUSCULAR VOLUME 83 fL (82-100); MONOCYTES # (AUTO) 1.2 K/uL (0.1-1.30); MONOCYTES % (AUTO) 16.3 % (2.0-12.0); NEUTROPHILS # (AUTO) 4.8 K/uL (1.8-8.9); NEUTROPHILS % (AUTO) 63.2 % (43.0-81.0); PLATELET COUNT (AUTO) 419 K/uL (150-450); RED BLOOD CELL COUNT(AUTO) 3.03 MIL/uL (4.0-5.2); WHITE BLOOD COUNT (AUTO) 7.6 K/uL (4.3-11.0)
[2021-10-09 08:00] VITALS: BP 105/66
[2021-10-09 08:08] LABS: CALCIUM, SERUM 9.8 mg/dL (8.5-10.1); CREATININE 1.7 mg/dL (0.6-1.3); MAGNESIUM 2.3 mg/dL (1.8-2.4); PHOSPHORUS 3.7 mg/dL (2.5-4.9)
[2021-10-09] MEDS: ALBUTEROL SULFATE INH 18 GM HFA.AER.AD IH SCH ×2 (08:08→16:24)
[2021-10-09 10:04] LABS: EOSINOPHILS % (MANUAL) 5 % (0-4); LYMPHOCYTES % (MANUAL) 13 % (16-48); MONOCYTES % (MANUAL) 12 % (0-11.0); NEUTROPHILS % (MANUAL) 70 (42-76)
--- NOTE | 2021-10-09 11:02 | NUR ---
RN NOTES; B/S TAKEN WITH RESULT OF 126. NO COVERAGE NEEDED PER SLIDING SCALE. WILL CONTINUE TO MONITOR.
[2021-10-09 12:00] VITALS: BP 155/74
[2021-10-09 16:00] VITALS: BP 147/79
--- NOTE | 2021-10-09 18:39 | NUR ---
RN CLOSING NOTES; PT A/OX2, NON VERBAL, T-PIECE 3L AND TOLERATING WELL. LAC #20 FLUSHED, PATENT WITH NO SIGNS OF INFILTRATION. RUNNING D5NS @75ML/HR. PT KEPT CLEAN, DRY, AND COMFORTABLE. SAFETY MEASURES RENDERED, BED IN LOWEST POS. LOCKED, SIDE RAILSX2, WITH CALL LIGHT WITHIN REACH. NO SIGNIFICANT CHANGES TO PT HEALTH STATUS ON SHIFT. WILL ENDORSE TO DOCTOR OF NURSE ANESTHESIA PRACTICE RN. PT IN STABLE CONDITION.
--- NOTE | 2021-10-09 19:30 | NUR ---
RN OPENING NOTE PT A/OX2, NON VERBAL, HOWEVER ABLE TO RESPOND BACK WITH NODS AND FACIAL EXPRESSIONS. T-PIECE 3L AND TOLERATING WELL. LAC #20 FLUSHED, PATENT WITH NO SIGNS OF INFILTRATION. RUNNING D5NS @75ML/HR. PALM CATETHER NOTED. DRAINING YELLOW CLEAR URINE. G TUBE NOTE, RUNNING 50ML GLUCERNIA. SAFETY MEASURES RENDERED, BED IN LOWEST POS. LOCKED, SIDE RAILSX2, WITH CALL LIGHT WITHIN REACH. ALL ISOLATION PRECAUTIONS TAKEN AND IMPLEMENTED.
[2021-10-09 20:00] VITALS: BP 144/83
[2021-10-10] MEDS: BLOOD SUGAR DIAGNOSTIC 1 EACH STRIP IN SCH ×5 (00:29→23:55)
[2021-10-10] MEDS: INSULIN REGULAR, HUMAN 100 UNIT/ML 3 ML VIAL SQ PRN ×4 (00:32→18:06)
[2021-10-10] MEDS: IV D5/ 0.9% NACL 1,000 ML IV PRN (02:05)
[2021-10-10 04:00] VITALS: BP 125/74
[2021-10-10 04:01] VITALS: BP 115/91
[2021-10-10] MEDS: GLUCERNA GT PRN (06:04)
--- NOTE | 2021-10-10 06:32 | NUR ---
RN CLOSING NOTES; PATIENT REMAINS IN BED RESTING COMFORTABLY, NO CHANGES DURING SHIFT. IV SITE RUNNING S5NS @75ML/HR. PATIENT CONTINUES G TUBE GLUCERNA FEEDING AT 50ML/HR. PT KEPT CLEAN, DRY, AND COMFORTABLE. SAFETY MEASURES RENDERED, BOTH ENVIRONMENTAL AND ISOLATION PRECAUTIONS TAKEN, BED IN LOWEST POS. LOCKED, SIDE RAILSX2, WITH CALL LIGHT WITHIN REACH. WILL ENDORSE TO MORNING SHIFT RN. PATIENT IN STABLE CONDITION THROUGHOUT SHIFT.
[2021-10-10 07:06] LABS: BASOPHILS % (AUTO) 0.4 % (0.0-2.0); EOSINOPHILS % (AUTO) 2.9 % (0.0-6.0); HEMATOCRIT 25 % (33-45); HEMOGLOBIN 8.3 g/dL (11.5-14.8); LYMPHOCYTES # (AUTO) 1.1 K/uL (0.8-4.8); LYMPHOCYTES % (AUTO) 15.6 % (20.0-44.0); MEAN CORPUSCULAR HGB CONC 33 g/dl (31.0-36.0); MEAN CORPUSCULAR VOLUME 83 fL (82-100); MONOCYTES # (AUTO) 1.1 K/uL (0.1-1.30); MONOCYTES % (AUTO) 15.8 % (2.0-12.0); NEUTROPHILS # (AUTO) 4.5 K/uL (1.8-8.9); NEUTROPHILS % (AUTO) 65.3 % (43.0-81.0); PLATELET COUNT (AUTO) 441 K/uL (150-450); RED BLOOD CELL COUNT(AUTO) 3.01 MIL/uL (4.0-5.2); WHITE BLOOD COUNT (AUTO) 6.9 K/uL (4.3-11.0)
[2021-10-10 07:31] LABS: CALCIUM, SERUM 9.5 mg/dL (8.5-10.1); CREATININE 1.9 mg/dL (0.6-1.3); MAGNESIUM 2.3 mg/dL (1.8-2.4); PHOSPHORUS 4.4 mg/dL (2.5-4.9); POTASSIUM 4.2 mmol/L (3.5-5.1)
--- NOTE | 2021-10-10 07:55 | NUR ---
RN NOTE RECEIVED PT AWAKE IN BED, ALERT AND RESPONSIVE TO STIMULI. T -PIECE IN PLACE WITH O2 OF 3L, PT NOT IN RESPIRATORY DISTRESS. NO COMPLAINTS OF PAIN AND DISCOMFORT. GT IN PLACE WITH FEEDING OF GLUCERNA RUNNING AT 50CC/HR. ASPIRATION PREC FOLLOWED. WITH LAC G20 MED LOCK, PATENT AND RUNNING WITH D5NS @ 75/HR. SAFETY MEASURES FOLLOWED.
[2021-10-10 08:00] VITALS: BP 147/87
[2021-10-10] MEDS: MEROPENEM 500 MG in IV NS 0.9% 50 ML IV SCH (08:09)
[2021-10-10] MEDS: CEFTRIAXONE 2 G in IV D5W 100 ML IV SCH (11:10)
[2021-10-10] MEDS: ALBUTEROL SULFATE INH 18 GM HFA.AER.AD IH SCH ×2 (11:31→18:11)
[2021-10-10 16:00] VITALS: BP 125/70
[2021-10-10] MEDS ORDERED: IV D5W 500 ML IV ONE (16:30)
[2021-10-10 19:12] LABS: BAND % (MANUAL) 1 % (0.0-5.0); EOSINOPHILS % (MANUAL) 2 % (0-4); LYMPHOCYTES % (MANUAL) 17 % (16-48); MONOCYTES % (MANUAL) 14 % (0-11.0); NEUTROPHILS % (MANUAL) 66 (42-76)
--- NOTE | 2021-10-10 19:34 | NUR ---
RN NOTE PT AWAKE RESTING IN BED, ALERT AND RESPONSIVE TO STIMULI. T -PIECE IN PLACE WITH O2 OF 3L, PT NOT IN RESPIRATORY DISTRESS. NO COMPLAINTS OF PAIN AND DISCOMFORT. GT IN PLACE WITH FEEDING OF GLUCERNA RUNNING AT 50CC/HR. ASPIRATION PREC FOLLOWED. WITH LAC G20 MED LOCK, PATENT AND RUNNING WITH D5NS @ 75/HR. SAFETY MEASURES FOLLOWED. ALL DUE MEDICATIONS GIVEN, MORNING CARE RENDERED.
--- NOTE | 2021-10-10 19:35 | NUR ---
RN NOTE RECEIVED PATIENT RESTING IN BED AWAKE RESTING, ALERT AND RESPONSIVE TO STIMULI AND ABLE TO RESPOND BACK TO QUESTIONS WITH NODS AND FACIAL EXPRESSIONS. T -PIECE IN PLACE WITH O2 OF 3L, PT NOT IN RESPIRATORY DISTRESS.GT IN PLACE WITH FEEDING OF GLUCERNA RUNNING AT 50CC/HR. ASPIRATION PREC FOLLOWED. WITH LAC G20 MED LOCK, PATENT AND RUNNING WITH D5NS @ 75/HR.. ALL COVID 19 ISOLATION PRECAUTIONS TAKEN, AND ENVIRONMENTAL MEASURES TAKEN.WILL CONTINUE TO MONITOR THROUGHOUT SHIFT.
--- NOTE | 2021-10-10 23:55 | NUR ---
RN NOTE BS WAS 124 - NO INSULIN TO ADMIN PER SLIDING SCALE
[2021-10-11] VITALS: BP 148/82
[2021-10-11] MEDS: ACETAMINOPHEN 325 MG TABLET PO PRN (00:03)
[2021-10-11] MEDS: BLOOD SUGAR DIAGNOSTIC 1 EACH STRIP IN SCH ×4 (05:52→23:58)
[2021-10-11] MEDS: GLUCERNA GT PRN (06:04)
[2021-10-11] MEDS: INSULIN REGULAR, HUMAN 100 UNIT/ML 3 ML VIAL SQ PRN ×3 (06:06→17:30)
[2021-10-11 07:18] LABS: BASOPHILS % (AUTO) 0.5 % (0.0-2.0); HEMATOCRIT 28 % (33-45); LYMPHOCYTES # (AUTO) 1.4 K/uL (0.8-4.8); LYMPHOCYTES % (AUTO) 15.2 % (20.0-44.0); MEAN CORPUSCULAR HGB CONC 32 g/dl (31.0-36.0); MEAN CORPUSCULAR VOLUME 82 fL (82-100); MONOCYTES # (AUTO) 1.2 K/uL (0.1-1.30); MONOCYTES % (AUTO) 13.1 % (2.0-12.0); NEUTROPHILS # (AUTO) 6.2 K/uL (1.8-8.9); NEUTROPHILS % (AUTO) 67.2 % (43.0-81.0); PLATELET COUNT (AUTO) 524 K/uL (150-450); RED BLOOD CELL COUNT(AUTO) 3.39 MIL/uL (4.0-5.2); WHITE BLOOD COUNT (AUTO) 9.3 K/uL (4.3-11.0)
--- NOTE | 2021-10-11 07:45 | NUR ---
RN OPENING NOTE RECEIVED PT A/OX2, NON. T-PIECE 3L AND TOLERATING WELL NO SIGNS OF SOB . LAC #20 FLUSHED, PATENT WITH NO SIGNS OF INFILTRATION. RUNNING D5NS @75ML/HR. NÉSTOR CATSHAWNEE NOTED. G TUBE NOTE, RUNNING 50ML GLUCERNIA. SAFETY MEASURES RENDERED, BED IN LOWEST POS. LOCKED, SIDE RAILSX2, WITH CALL LIGHT WITHIN REACH.
--- NOTE | 2021-10-11 07:49 | NUR ---
RN CLOSING NOTES PATIENT REMAINED IN STABLE CONDITION THROUGHOUT NIGHT, WITH NO CHANGES. PATIENT KEPT DRY AND CLEAN.AND REPOSITIONED ACCORDING. WILL ENDORSE PLAN OF CARE TO ONCOMING NURSE.
[2021-10-11 08:00] VITALS: BP 156/90
[2021-10-11] MEDS: ALBUTEROL SULFATE INH 18 GM HFA.AER.AD IH SCH ×2 (08:04→17:20)
[2021-10-11] MEDS: CEFTRIAXONE 2 G in IV D5W 100 ML IV SCH (11:01)
[2021-10-11 11:35] LABS: CALCIUM, SERUM 9.9 mg/dL (8.5-10.1); CREATININE 1.8 mg/dL (0.6-1.3); MAGNESIUM 2.2 mg/dL (1.8-2.4); PHOSPHORUS 5.7 mg/dL (2.5-4.9); POTASSIUM 4.3 mmol/L (3.5-5.1)
[2021-10-11 16:00] VITALS: BP 140/80
--- NOTE | 2021-10-11 19:01 | NUR ---
RN CLOSING NOTE RECEIVED PT A/OX2, NON. T-PIECE 3L AND TOLERATING WELL NO SIGNS OF SOB . LAC #20 FLUSHED, PATENT WITH NO SIGNS OF INFILTRATION. ALL SCHEDULED MEDICATIONS GIVEN. NÉSTOR BRAXTON NOTED. G TUBE NOTE, RUNNING 50ML GLUCERNIA. SAFETY MEASURES RENDERED, BED IN LOWEST POS. LOCKED, SIDE RAILSX2, WITH CALL LIGHT WITHIN REACH. WILL ENDORSE TO NIGHT NURSE FOR KI
--- NOTE | 2021-10-11 19:55 | NUR ---
RN CLOSING NOTE RECEIVED PT A/OX2, NON. T-PIECE 3L AND TOLERATING WELL NO SIGNS OF SOB . LAC #20 FLUSHED, PATENT WITH NO SIGNS OF INFILTRATION. NÉSTOR BRAXTON NOTED. G TUBE NOTE, RUNNING 50ML GLUCERNIA. SAFETY MEASURES RENDERED, BED IN LOWEST POS. LOCKED, SIDE RAILSX2, WITH CALL LIGHT WITHIN REACH. WILL CONTINUE PLAN OF CARE FOR PATIENT. Addendum: 10/12/21 at 0209 by Caitlyn Callahan RN RN OPENING NOTE*
--- NOTE | 2021-10-11 23:30 | NUR ---
BLOOD GLUCOSE WAS 105 - NO INSULIN ADMIN PER SLIDING SCALE GIVEN.
[2021-10-12] MEDS: INSULIN REGULAR, HUMAN 100 UNIT/ML 3 ML VIAL SQ PRN ×4 (00:17→17:40)
[2021-10-12] MEDS: BLOOD SUGAR DIAGNOSTIC 1 EACH STRIP IN SCH ×3 (05:34→17:34)
--- NOTE | 2021-10-12 06:12 | NUR ---
RN CLOSING NOTE NO CHANGES THROUGHOUT THE SHIFT ALL PATIENT NEEDS MET, PATIENT REPOSITIONED, AND ALL MEDS GIVEN.WILL ENDORSE PATIENT CARE TO ONCOMING AM NURSE. N
--- NOTE | 2021-10-12 07:15 | NUR ---
RN NOTE REPORT REC'D AT BEDSIDE. PT IS AWAKE. ABLE TO COMMUNICATE NEEDS WITH ACTIONS. HAS TRACH D/C/I. O2 @3 LPM PER ORDER. DENIES ANY NEED. NO SOB. COMFORTABLE. GTF AT 50CC/HR TOLERATING WELL. NO GASTRIC RESIDUAL NOTED. PALM TO GRAVITY WITH CLEAR, YELLOW URINE. IV TO LAC PATENT AND INTACT. SAFETY PRECAUTIONS OBSERVED. CALL LIGHT IN PLACE.WILL CONT. TO MONITOR.
[2021-10-12 08:53] LABS: CALCIUM, SERUM 10.6 mg/dL (8.5-10.1); CREATININE 1.9 mg/dL (0.6-1.3); MAGNESIUM 2.5 mg/dL (1.8-2.4); PHOSPHORUS 5.5 mg/dL (2.5-4.9); POTASSIUM 4.2 mmol/L (3.5-5.1)
[2021-10-12 09:41] LABS: BASOPHILS # (AUTO) 0.1 K/uL (0.0-0.2); BASOPHILS % (AUTO) 1.1 % (0.0-2.0); EOSINOPHILS % (AUTO) 5.2 % (0.0-6.0); HEMATOCRIT 31 % (33-45); HEMOGLOBIN 10.1 g/dL (11.5-14.8); LYMPHOCYTES # (AUTO) 1.3 K/uL (0.8-4.8); LYMPHOCYTES % (AUTO) 15.2 % (20.0-44.0); MEAN CORPUSCULAR HGB CONC 33 g/dl (31.0-36.0); MEAN CORPUSCULAR VOLUME 83 fL (82-100); MONOCYTES # (AUTO) 1.1 K/uL (0.1-1.30); MONOCYTES % (AUTO) 12.3 % (2.0-12.0); NEUTROPHILS # (AUTO) 5.8 K/uL (1.8-8.9); NEUTROPHILS % (AUTO) 66.2 % (43.0-81.0); PLATELET COUNT (AUTO) 631 K/uL (150-450); WHITE BLOOD COUNT (AUTO) 8.8 K/uL (4.3-11.0)
[2021-10-12] MEDS: ALBUTEROL SULFATE INH 18 GM HFA.AER.AD IH SCH ×2 (10:06→17:40)
[2021-10-12] MEDS: CEFTRIAXONE 2 G in IV D5W 100 ML IV SCH (10:07)
[2021-10-12] MEDS: GLUCERNA GT PRN (18:06)
--- NOTE | 2021-10-12 18:40 | NUR ---
RN NOTE PTS CONDITON REMAINS STABLE. NO SOB OR PAIN. TOLERATING GTF AT 50 CC/HR. PALM TO GRAVITY DRAINING CLEAR URINE. NEEDS ATTENDED. DUE MEDS GIVEN SCHEDULED. SAFETY PRECAUTIONS OBSERVED AT ALL TIMES. CALL LIGHT WITHIN REACH. WILL ENDORSE TO YOVANI RN FOR KI.
[2021-10-12 20:00] VITALS: BP 153/79
--- NOTE | 2021-10-12 20:33 | NUR ---
RN OPENING NOTES; RECEIVED PATIENT AWAKE IN BED, BED IN LOW POSITION, CALL LIGHTS WITHIN REACH, NO COMPLAIN OF PAIN AND DISCOMFORT AT THIS TIME, PATIENT ON G TUBE FEEDING OF GLUCERNA 1.2@50ML PER HOUR INFUSING WELL, ON TRACH T PIECE, SATURATING WELL, WITH IV LINE AT LAC 320 SL, PATIENT KEPT CLEAN AND DRY, ALL NEEDS MET WWILL CONTINUE TO MONITOR.
[2021-10-12] MEDS: ACETAMINOPHEN 325 MG TABLET PO PRN (21:00)
--- NOTE | 2021-10-13 | NUR ---
MS GOLF CLUB WEIGHTER NOTES RECEIVED PT FROM KEILA [facility]IA [facility]. PT AWAKE IN BED. A/O X2-3. PT ON 3 LPM VIA TRACH PIECE. NO SOB OR S/S OF RESPIRATORY DISTRESS NOTED. IV ACCESS LAC 20 GAUGE SL, INTACT AND PATENT. SKIN INTACT. WITH PEG TUBE RUNNING GLUCERNA 1.2 @ 50 ML/HR, INTACT AND PATENT. PALM CATHETER IN PLACE. ORIENTED TO ROOM, UNIT, AND STAFF. SAFETY PRECAUTIONS MAINTAINED. BED IN LOWEST LOCKED POSITION, HOB ELEVATED, SIDE RAILS UP X2, AND CALL LIGHT AND TABLE WITHIN REACH. WILL CONTINUE WITH PLAN OF CARE.
[2021-10-13] MEDS: BLOOD SUGAR DIAGNOSTIC 1 EACH STRIP IN SCH ×4 (00:37→17:32)
[2021-10-13] MEDS: INSULIN REGULAR, HUMAN 100 UNIT/ML 3 ML VIAL SQ PRN ×4 (00:42→17:32)
--- NOTE | 2021-10-13 06:46 | NUR ---
MS RN CLOSING NOTES PT AWAKE IN BED. A/O X2-3. PT ON 3 LPM VIA TRACH PIECE. NO SOB OR S/S OF RESPIRATORY DISTRESS NOTED. IV ACCESS LAC 20 GAUGE SL, INTACT AND PATENT. WITH PEG TUBE RUNNING GLUCERNA 1.2 @ 50 ML/HR, INTACT AND PATENT. PALM CATHETER IN PLACE. ALL NEEDS MET AT THIS TIME. SAFETY PRECAUTIONS MAINTAINED AT ALL TIMES. BED IN LOWEST LOCKED POSITION, HOB ELEVATED, SIDE RAILS UP X2, AND CALL LIGHT AND TABLE WITHIN REACH. WILL ENDORSE TO ONCOMING NURSE FOR KI.
--- NOTE | 2021-10-13 07:11 | NUR ---
MS RN OPENING NOTES RECEIVED PATIENT AWAKE IN BED. A/O X2-3. PT ON 3 LPM VIA TRACH PIECE. NO SOB OR S/S OF RESPIRATORY DISTRESS NOTED. IV ACCESS LAC G#20 SL, INTACT AND PATENT. WITH PEG TUBE ONGOING GLUCERNA 1.2 @ 50 ML/HR, INTACT AND PATENT. PALM CATHETER IN PLACE. SAFETY PRECAUTIONS MAINTAINED AT ALL TIMES. BED IN LOWEST LOCKED POSITION, HOB ELEVATED, SIDE RAILS UP X2, AND CALL LIGHT AND TABLE WITHIN REACH. WILL CONTINUE TO MONITOR ACCORDINGLY.
[2021-10-13 08:00] VITALS: BP 143/83
[2021-10-13 08:00] LABS: BASOPHILS # (AUTO) 0.1 K/uL (0.0-0.2); BASOPHILS % (AUTO) 0.7 % (0.0-2.0); HEMATOCRIT 34 % (33-45); HEMOGLOBIN 10.9 g/dL (11.5-14.8); LYMPHOCYTES # (AUTO) 1.5 K/uL (0.8-4.8); LYMPHOCYTES % (AUTO) 13.5 % (20.0-44.0); MEAN CORPUSCULAR HGB CONC 32 g/dl (31.0-36.0); MEAN CORPUSCULAR VOLUME 83 fL (82-100); MONOCYTES # (AUTO) 1.4 K/uL (0.1-1.30); MONOCYTES % (AUTO) 12.4 % (2.0-12.0); NEUTROPHILS # (AUTO) 8.1 K/uL (1.8-8.9); NEUTROPHILS % (AUTO) 70.4 % (43.0-81.0); PLATELET COUNT (AUTO) 666 K/uL (150-450); RED BLOOD CELL COUNT(AUTO) 4.15 MIL/uL (4.0-5.2); WHITE BLOOD COUNT (AUTO) 11.5 K/uL (4.3-11.0)
[2021-10-13 08:38] LABS: CALCIUM, SERUM 11.1 mg/dL (8.5-10.1); CREATININE 2.1 mg/dL (0.6-1.3); MAGNESIUM 3.2 mg/dL (1.8-2.4); PHOSPHORUS 5.7 mg/dL (2.5-4.9); POTASSIUM 4.4 mmol/L (3.5-5.1)
[2021-10-13] MEDS: ALBUTEROL SULFATE INH 18 GM HFA.AER.AD IH SCH ×2 (09:17→16:58)
[2021-10-13] MEDS: CEFTRIAXONE 2 G in IV D5W 100 ML IV SCH (11:02)
[2021-10-13 16:00] VITALS: BP 144/52
[2021-10-13] MEDS: GLUCERNA GT PRN (18:08)
--- NOTE | 2021-10-13 18:31 | NUR ---
MS RN CLOSING NOTES PATIENT AWAKE IN BED. A/O X2-3. PT ON 3 LPM VIA TRACH PIECE. NO SOB OR S/S OF RESPIRATORY DISTRESS NOTED. IV ACCESS LAC G#20 SL, INTACT AND PATENT. WITH PEG TUBE ONGOING GLUCERNA 1.2 @ 50 ML/HR, INTACT AND PATENT, NO RESIDUAL NOTED. PALM CATHETER IN PLACE. SAFETY PRECAUTIONS MAINTAINED AT ALL TIMES. BED IN LOWEST LOCKED POSITION, HOB ELEVATED, SIDE RAILS UP X2, AND CALL LIGHT AND TABLE WITHIN REACH. ALL NEEDS ATTENDED AND MET. DUE MEDS GIVEN ORDERED. WILL ENDORSE TO ONCOMING SHIFT FOR KI.
[2021-10-13 20:00] VITALS: BP 148/70
[2021-10-14] MEDS: BLOOD SUGAR DIAGNOSTIC 1 EACH STRIP IN SCH ×4 (00:08→17:17)
[2021-10-14] MEDS: INSULIN REGULAR, HUMAN 100 UNIT/ML 3 ML VIAL SQ PRN ×4 (00:10→17:26)
--- NOTE | 2021-10-14 04:13 | NUR ---
MS RN NOTE: L AC IV SITE RED AND SLIGHTLY SWOLLEN. D/C'D IV, CATHETER TIP INTACT. INSERTED NEW IV TO L WRIST #20 GAUGE. POSITIVE BLOOD RETURN. FLUSHED AND PATENT. NO INFILTRATION. NO REDNESS TO OR SURROUNDING INSERTION SITE. DRESSING C/D/I
[2021-10-14 07:05] LABS: BASOPHILS # (AUTO) 0.1 K/uL (0.0-0.2); BASOPHILS % (AUTO) 0.7 % (0.0-2.0); EOSINOPHILS % (AUTO) 4.7 % (0.0-6.0); HEMATOCRIT 34 % (33-45); LYMPHOCYTES # (AUTO) 2.1 K/uL (0.8-4.8); LYMPHOCYTES % (AUTO) 15.6 % (20.0-44.0); MEAN CORPUSCULAR HGB CONC 32 g/dl (31.0-36.0); MEAN CORPUSCULAR VOLUME 84 fL (82-100); MONOCYTES # (AUTO) 1.4 K/uL (0.1-1.30); MONOCYTES % (AUTO) 10.3 % (2.0-12.0); NEUTROPHILS # (AUTO) 9.1 K/uL (1.8-8.9); NEUTROPHILS % (AUTO) 68.7 % (43.0-81.0); PLATELET COUNT (AUTO) 752 K/uL (150-450); RED BLOOD CELL COUNT(AUTO) 4.08 MIL/uL (4.0-5.2); WHITE BLOOD COUNT (AUTO) 13.2 K/uL (4.3-11.0)
--- NOTE | 2021-10-14 07:15 | NUR ---
MS RN OPENING NOTES RECEIVED PATIENT AWAKE IN BED. NO SIGNS OF ACUTE DISTRESS NOTED. PT WITH TRACH PIECE ON 1LPM O2. NO SOB OR S/S OF RESPIRATORY DISTRESS NOTED. IV ACCESS LWRIST G#20 SL, INTACT AND PATENT. WITH PEG TUBE INTACT AND PATENT, GLUCERNA 1.2 @ 50 ML/HR ONGOING. PALM CATHETER IN PLACE. SAFETY PRECAUTIONS MAINTAINED AT ALL TIMES. BED IN LOWEST LOCKED POSITION, HOB ELEVATED, SIDE RAILS UP X2, AND CALL LIGHT AND TABLE WITHIN REACH. WILL CONTINUE TO MONITOR ACCORDINGLY.
[2021-10-14 08:00] VITALS: BP 133/92
[2021-10-14 08:03] LABS: CALCIUM, SERUM 10.6 mg/dL (8.5-10.1); CREATININE 2.3 mg/dL (0.6-1.3); MAGNESIUM 3.6 mg/dL (1.8-2.4); POTASSIUM 4.4 mmol/L (3.5-5.1)
[2021-10-14] MEDS: ALBUTEROL SULFATE INH 18 GM HFA.AER.AD IH SCH ×2 (08:23→16:39)
[2021-10-14] MEDS: CEFTRIAXONE 2 G in IV D5W 100 ML IV SCH (10:03)
[2021-10-14] MEDS: IV D5W 1,000 ML IV PRN (15:17)
[2021-10-14 16:00] VITALS: BP 163/82
--- NOTE | 2021-10-14 18:50 | NUR ---
MS RN CLOSING NOTES PATIENT AWAKE ON BED. NO SIGNS OF ACUTE DISTRESS NOTED. PT WITH T-PIECE ON 1LPM O2, SATURATING 100%. NO SOB OR S/S OF RESPIRATORY DISTRESS NOTED. IV ACCESS LWRIST G#20 SL, INTACT AND PATENT, [id number] @75ML/HOUR ONGOING. WITH PEG TUBE INTACT AND PATENT, GLUCERNA 1.2 @ 50 ML/HR ONGOING. ALL DUE MEDS GIVEN. F/C INTACT AND PATENT, DRAINING CLEAR NIKITA COLORED URINE. SAFETY PRECAUTIONS MAINTAINED AT ALL TIMES. BED IN LOWEST LOCKED POSITION, HOB ELEVATED, SIDE RAILS UP X2, AND CALL LIGHT AND TABLE WITHIN REACH. WILL ENDORSE TO NEXT SHIFT.
[2021-10-14 20:00] VITALS: BP 120/76
[2021-10-14] MEDS: GLUCERNA GT PRN (22:04)
[2021-10-14] MEDS ORDERED: IV NS 0.9% 1,000 ML IV ONE (22:30)
[2021-10-15] MEDS: BLOOD SUGAR DIAGNOSTIC 1 EACH STRIP IN SCH ×4 (00:11→18:43)
[2021-10-15] MEDS: INSULIN REGULAR, HUMAN 100 UNIT/ML 3 ML VIAL SQ PRN ×2 (00:12→05:55)
--- NOTE | 2021-10-15 07:15 | NUR ---
CLOSING NOTES Patient stable overnight. Denies pain or discomfort. Tolerating IVF well. 675cc output yellow clear urine to f/c. No signs of distress. On 1L O2 via T-piece sats in high 90s. G-tube residual 10cc only. tolerating feeding. Offloading L side d/t L sided weakness. All safety measures in place.
[2021-10-15 08:00] VITALS: BP 122/77
--- NOTE | 2021-10-15 08:00 | NUR ---
RN OPENING NOTES PATIENT IS AWAKE IN BED RESTING, A/O X1. NO S/S OF PAIN NOTED AT THIS TIME. ON 1L VIA T-PIECE, NO DISTRESS OR SHORTNESS OF BREATH NOTED. IV ACCESS L WRIST #20G, INTACT AND PATENT, FLUSHING WELL. PATIENT HAVE PALM CATH, IN PLACE AND DRAINING WELL. PATIENT HAVE A G-TUBE, TOLERATING FEEDING. FALL AND SAFETY MEASURES IN PLACE, BED ALARM ON, BED IN LOW AND LOCK POSITION, CALL LIGHT AND TABLE WITHIN EASY REACH, SIDE RAIL UP X2. WILL CONTINUE TO MONITOR.
[2021-10-15 08:29] LABS: BASOPHILS # (AUTO) 0.1 K/uL (0.0-0.2); BASOPHILS % (AUTO) 0.6 % (0.0-2.0); EOSINOPHILS % (AUTO) 4.8 % (0.0-6.0); HEMATOCRIT 31 % (33-45); HEMOGLOBIN 9.6 g/dL (11.5-14.8); MEAN CORPUSCULAR HGB CONC 31 g/dl (31.0-36.0); MEAN CORPUSCULAR VOLUME 85 fL (82-100); MONOCYTES # (AUTO) 0.9 K/uL (0.1-1.30); MONOCYTES % (AUTO) 8.3 % (2.0-12.0); NEUTROPHILS # (AUTO) 7.7 K/uL (1.8-8.9); NEUTROPHILS % (AUTO) 68.3 % (43.0-81.0); PLATELET COUNT (AUTO) 636 K/uL (150-450); WHITE BLOOD COUNT (AUTO) 11.3 K/uL (4.3-11.0)
[2021-10-15 08:39] LABS: CALCIUM, SERUM 9.5 mg/dL (8.5-10.1); CREATININE 2.3 mg/dL (0.6-1.3); POTASSIUM 4.3 mmol/L (3.5-5.1)
[2021-10-15] MEDS: ALBUTEROL SULFATE INH 18 GM HFA.AER.AD IH SCH ×2 (09:10→18:38)
[2021-10-15 10:08] LABS: MAGNESIUM 3.3 mg/dL (1.8-2.4); PHOSPHORUS 5.6 mg/dL (2.5-4.9)
[2021-10-15] MEDS: CEFTRIAXONE 2 G in IV D5W 100 ML IV SCH (12:33)
[2021-10-15 16:00] VITALS: BP 131/73
--- NOTE | 2021-10-15 19:43 | NUR ---
RN CLOSING NOTES PATIENT IS AWAKE IN BED RESTING, A/O X1. NO S/S OF PAIN NOTED AT THIS TIME. ON 1L VIA T-PIECE, NO DISTRESS OR SHORTNESS OF BREATH NOTED. IV ACCESS L WRIST #20G, INTACT AND PATENT, FLUSHING WELL. PATIENT HAVE PALM CATH, IN PLACE AND DRAINING WELL. PATIENT HAVE A G-TUBE, TOLERATING FEEDING. FALL AND SAFETY MEASURES IN PLACE, BED ALARM ON, BED IN LOW AND LOCK POSITION, CALL LIGHT AND TABLE WITHIN EASY REACH, SIDE RAIL UP X2. WILL ENDORSE TO TRAIN ANNOUNCER.
[2021-10-15 20:39] VITALS: BP 140/95
[2021-10-16] MEDS: IV D5W 1,000 ML IV PRN ×2 (00:40→14:55)
[2021-10-16] MEDS: BLOOD SUGAR DIAGNOSTIC 1 EACH STRIP IN SCH ×4 (00:40→17:57)
[2021-10-16] MEDS: INSULIN REGULAR, HUMAN 100 UNIT/ML 3 ML VIAL SQ PRN ×3 (00:43→12:29)
[2021-10-16] MEDS: GLUCERNA GT PRN (01:18)
[2021-10-16 06:35] LABS: BASOPHILS # (AUTO) 0.1 K/uL (0.0-0.2); BASOPHILS % (AUTO) 0.6 % (0.0-2.0); EOSINOPHILS % (AUTO) 2.6 % (0.0-6.0); HEMATOCRIT 28 % (33-45); LYMPHOCYTES # (AUTO) 1.6 K/uL (0.8-4.8); LYMPHOCYTES % (AUTO) 15.7 % (20.0-44.0); MEAN CORPUSCULAR HGB CONC 32 g/dl (31.0-36.0); MEAN CORPUSCULAR VOLUME 85 fL (82-100); MONOCYTES # (AUTO) 0.6 K/uL (0.1-1.30); MONOCYTES % (AUTO) 6.2 % (2.0-12.0); NEUTROPHILS # (AUTO) 7.8 K/uL (1.8-8.9); NEUTROPHILS % (AUTO) 74.9 % (43.0-81.0); PLATELET COUNT (AUTO) 565 K/uL (150-450); RED BLOOD CELL COUNT(AUTO) 3.33 MIL/uL (4.0-5.2); WHITE BLOOD COUNT (AUTO) 10.4 K/uL (4.3-11.0)
[2021-10-16 07:23] LABS: ALBUMIN 2.6 g/dL (3.4-5.0); BILIRUBIN,TOTAL 0.2 mg/dL (0.2-1.0); MAGNESIUM 3.2 mg/dL (1.8-2.4); PHOSPHORUS 5.1 mg/dL (2.5-4.9); POTASSIUM 4.3 mmol/L (3.5-5.1); TOTAL PROTEIN, SERUM 7.4 g/dL (6.4-8.2)
--- NOTE | 2021-10-16 07:30 | NUR ---
MS RN OPENING NOTES PATIENT IS AWAKE IN BED RESTING, A/O X1. NO S/S OF PAIN NOTED AT THIS TIME. ON 1L VIA T-PIECE, NO DISTRESS OR SHORTNESS OF BREATH NOTED. IV ACCESS L WRIST #20G, INTACT AND PATENT, FLUSHING WELL. PATIENT HAVE PALM CATH, IN PLACE AND DRAINING WELL.KEPT HEAD OF THE BED ELEVATED ALL THE TIME. PATIENT HAVE A G-TUBE, TOLERATING FEEDING. FALL AND SAFETY MEASURES IN PLACE, BED ALARM ON, BED IN LOW AND LOCK POSITION, CALL LIGHT AND TABLE WITHIN EASY REACH, SIDE RAIL UP X2. WILL CONTINUE TO MONITOR.
--- NOTE | 2021-10-16 07:33 | NUR ---
RN CLOSING NOTES Patient is A&Ox1. O2 sats WNL overnight. 30cc residual to G-tube only -tolerating well. No s/s of hypo or hyperglycemic reactions noted. Tolerating IVF well. Abarca cath draining clear yellow urine.
[2021-10-16 08:00] VITALS: BP 151/92
[2021-10-16] MEDS: ALBUTEROL SULFATE INH 18 GM HFA.AER.AD IH SCH ×2 (10:10→17:19)
[2021-10-16] MEDS: CEFTRIAXONE 2 G in IV D5W 100 ML IV SCH (10:50)
[2021-10-16 16:00] VITALS: BP 141/83
--- NOTE | 2021-10-16 16:17 | NUR ---
RN NOTES CALLED BOBBY GALINDO AT [facility] AT 1617 PM BY PHONE # [phone] AND GAVE REPORT TO HER.
--- NOTE | 2021-10-16 18:43 | NUR ---
MS RN CLOSING NOTES PATIENT IS AWAKE IN BED RESTING, A/O X1. NON VERBAL. NODS HER HEAD FOR RESPONSES.NO S/S OF PAIN NOTED AT THIS TIME. ON 1L VIA T-PIECE, NO DISTRESS OR SHORTNESS OF BREATH NOTED. IV ACCESS L WRIST #20G, INTACT AND PATENT, FLUSHING WELL. PALM CATHETER DISCONTINUED.KEPT HEAD OF THE BED ELEVATED ALL THE TIME. ALL DUE MEDS GIVEN ORDERED.PATIENT HAVE A G-TUBE OF GLUCERNA 1.2 @ 50 ML /HR.TOLERATING FEEDING. FALL AND SAFETY MEASURES IN PLACE, BED ALARM ON, BED IN LOW AND LOCK POSITION, CALL LIGHT AND TABLE WITHIN EASY REACH, SIDE RAIL UP X2. PATIENT IS BEING DISCHARGED. TRANSPORTATION WILL PICK THE PATIENT UP. WILL ENDORSE INCOMING SHIFT FOR KI.
--- NOTE | 2021-10-16 20:45 | NUR ---
MS RN NOTES GAVE REPORT TO EMS FOR PATIENT DISCHARGE TO [facility].
== END 2021-10-16 20:30 | DRG 720 ==
LOC: ER 23:06 → TRANSITION 10-07 07:36 → TELE1 10-07 08:03 → MEDSG1 10-09 16:49 → MED 10-12 23:59
PROVIDERS: ADMIT Family Medicine
PROC: 5A1935Z Respiratory Ventilation, Less than 24 Consecutive Hours (ICD-10-PCS; principal; 2021-10-12)
DX: A41.51 Sepsis due to Escherichia coli [E. coli] (principal); J96.21 Acute and chronic respiratory failure with hypoxia; N17.0 Acute kidney failure with tubular necrosis; F25.9 Schizoaffective disorder, unspecified; E87.1 Hypo-osmolality and hyponatremia; E87.2 Acidosis; N13.6 Pyonephrosis; E11.22 Type 2 diabetes mellitus with diabetic chronic kidney disease; I12.9 Hypertensive chronic kidney disease with stage 1 through stage 4 chronic kidney disease, or unspecified chronic kidney disease; N39.0 Urinary tract infection, site not specified; I25.10 Atherosclerotic heart disease of native coronary artery without angina pectoris; N18.9 Chronic kidney disease, unspecified; G81.94 Hemiplegia, unspecified affecting left nondominant side; I25.2 Old myocardial infarction; R13.10 Dysphagia, unspecified; Z20.822 Contact with and (suspected) exposure to COVID-19; Z86.718 Personal history of other venous thrombosis and embolism; N20.2 Calculus of kidney with calculus of ureter; I70.0 Atherosclerosis of aorta; Z79.51 Long term (current) use of inhaled steroids; Z79.899 Other long term (current) drug therapy; E86.1 Hypovolemia; J98.11 Atelectasis; N13.9 Obstructive and reflux uropathy, unspecified; E87.0 Hyperosmolality and hypernatremia
CPT/HCPCS: 31720; 36415; 71045-TC; 76770-TC; 80048-TC; 80053-TC; 80076-TC; 80202-TC; 81001; 82962-TC; 83605-TC; 83735-TC; 83880; 84100-TC; 84484-TC; 85025-TC; 85378-TC; 85730-TC; 87040-TC; 87081-TC; 87086-TC; 87186-TC; 94640-TC; 94760-TC; 94799-TC; A4217; A4623; A7526; C9803; G0378; J0692; J0696; J1815; J2185; J2543; J3370; J3490; J7030; J7042; J7050; J7060; J7070; U0003

== ENCOUNTER 2021-12-18 09:03 | Inpatient (IN) | payer OTHER ==
[~2021-12-18] VITALS: Ht 152.4 cm; Wt 43.1 kg
[~2021-12-18 09:03] MED LIST changes: +AMLO2.5T4 GT; -BENA20TA9 GT; +CHLO473M5 MM; +CLOP75TA15 GT; -CYCL5TAB GT; -DICL100G16 TP; +FERR300L GT; +FLUD0.1T GT; +INSU100I26 SQ; -MELA3TAB41 GT; +METF-440 GT; +METO25TA20 GT; -METO5SOL GT; -MIRT-121 GT; -PROM118S5 GT; -SENN-261 GT; +TAMS-12 GT
--- NOTE | 2021-12-18 09:10 | NUR ---
[id number] FRM SCHR FOR NOTED FEVER AND TACHYCARDIA X 2 DAYS. PLACED TO BED COMFORTABLY BREATHING SPONTANEOUSLY SATURATING 97% AT ROOM AIR VIA TRACHE. CLEAR LUNG SOUNDS. WITH G-TUBE, BILATERAL NEPHROSTOMY TUBES. WITH BEDSORE AT LEFT SACRAL AREA. CAME WITH SALINE LOCK INSERTED ON LEFT WRIST WITH G20. VITAL SIGNS CHECKED.
[2021-12-18] MEDS ORDERED: ALBU18HF2 IH ×2 (09:13)
[2021-12-18] MEDS ORDERED: NUT.237L67 GT (09:13)
--- NOTE | 2021-12-18 09:20 | NUR ---
BLOOD DRAWN AND GIVEN TO SCHOOL NURSE
[2021-12-18] MEDS ORDERED: CEFTRIAXONE 1GM BAG (ER ONLY) 50 ML IV ONE ×2 (09:25→09:30)
--- NOTE | 2021-12-18 09:25 | NUR ---
URINE SPECIMEN GIVEN TO MERCED
[2021-12-18] MEDS ORDERED: IV NS 0.9% 1,000 ML BAG IV ONE ×2 (09:30→10:30)
--- NOTE | 2021-12-18 09:30 | NUR ---
CXR AT BEDSIDE DONE
--- NOTE | 2021-12-18 09:30 | NUR ---
IV FLUID NS IL STARTED, IV ANTIBIOTIC STARTED
[2021-12-18] MEDS ORDERED: CEFT2FRO2 IV (09:36)
--- NOTE | 2021-12-18 09:40 | NUR ---
COVID ANTIGEN SWAB DONE
[2021-12-18 09:41] LABS: BILIRUBIN,URINE NEGATIVE (NEGATIVE); COLOR,URINE YELLOW (YELLOW); LEUKOCYTE ESTERASE ,URINE MODERATE (NEGATIVE); NITRITE, URINE NEGATIVE (NEGATIVE); PH,URINE 6.5 (5.0-8.0); PROTEIN,URINE 100 mg/dl (NEGATIVE); UGLUCOSE NEGATIVE (NEGATIVE); UROBILINOGEN,URINE 0.2 EU/dL (0.2)
[2021-12-18 09:48] LABS: HEMATOCRIT 25 % (33-45); HEMOGLOBIN 8.1 g/dL (11.5-14.8); MEAN CORPUSCULAR HGB CONC 33 g/dl (31.0-36.0); MEAN CORPUSCULAR VOLUME 80 fL (82-100); PLATELET COUNT (AUTO) 633 K/uL (150-450); RED BLOOD CELL COUNT(AUTO) 3.09 MIL/uL (4.0-5.2); WHITE BLOOD COUNT (AUTO) 28.1 K/uL (4.3-11.0)
[2021-12-18 09:59] LABS: RBC,URINE 21-50 /HPF (0-2)
[2021-12-18 10:00] LABS: BACTERIA,URINE 1+ /HPF (None Seen); SQUAMOUS EPITHELIAL CELL,UR Few /HPF (None Seen)
[2021-12-18 10:17] LABS: ALANINE AMINOTRANSFERASE 24 U/L (12-78); ALBUMIN 2.3 g/dL (3.4-5.0); ALKALINE PHOSPHATASE 110 U/L (46-116); ASPARTATE AMINOTRANSFERASE 47 U/L (15-37); BILIRUBIN,DIRECT 0.5 mg/dL (0.0-0.2); BILIRUBIN,TOTAL 0.8 mg/dL (0.2-1.0); CALCIUM, SERUM 8.3 mg/dL (8.5-10.1); CARBON DIOXIDE 20 mmol/L (21-32); CHLORIDE 91 mmol/L (98-107); CREATININE 3.3 mg/dL (0.6-1.3); GLUCOSE 148 mg/dL (74-106); POTASSIUM 3.8 mmol/L (3.5-5.1); SODIUM SERUM 126 mmol/L (136-145); TOTAL PROTEIN, SERUM 7.1 g/dL (6.4-8.2); UREA NITROGEN, BLOOD 64 mg/dL (7-18)
[2021-12-18] MEDS ORDERED: ACETAMINOPHEN ES 500 MG TABLET ONE (10:17)
[2021-12-18 10:28] LABS: BAND % (MANUAL) 8 % (0.0-5.0); LYMPHOCYTES % (MANUAL) 4 % (16-48); METAMYELOCYTES % 2 % (0-0); MONOCYTES % (MANUAL) 6 % (0-11.0); MYELOCYTES % 2 % (0-0); NEUTROPHILS % (MANUAL) 78 (42-76)
[2021-12-18] MEDS ORDERED: ACETAMINOPHEN ES 500 MG TABLET PO ONE (10:30)
[2021-12-18] MEDS ORDERED: VANCOMYCIN 1.25 GM in IV D5W 500 ML IV ONE (10:30)
--- NOTE | 2021-12-18 10:38 | NUR ---
TYLENOL PER GTUBE CHANGED TO RECTAL SUPP PER ORDER BY DR ROMO
[2021-12-18] MEDS ORDERED: ACETAMINOPHEN 650 MG/SUPP.RECT RC ONE ×2 (10:41→11:00)
[2021-12-18] MEDS ORDERED: ALBUTEROL SULFATE 8 GM HFA.AER.AD IH PRN (11:00)
[2021-12-18] MEDS ORDERED: ZOLPIDEM TARTRATE 5 MG TABLET PO PRN (11:00)
[2021-12-18] MEDS ORDERED: DEXTROSE 50%-WATER 50 ML DISP.SYRIN IV PRN (11:00)
[2021-12-18] MEDS ORDERED: Z GUARD REMEDY 4 OZ OINT TP PRN (11:00)
[2021-12-18] MEDS ORDERED: ACETAMINOPHEN 325 MG TABLET PO PRN (11:00)
[2021-12-18] MEDS ORDERED: MAGNESIUM HYDROXIDE 30 ML UDC PO PRN (11:00)
[2021-12-18] MEDS ORDERED: ACETAMINOPHEN 650 MG/20.3 ML UDC GT PRN (11:00)
[2021-12-18] MEDS ORDERED: BISACODYL SUPP (10 MG) 10 MG/SUPP.RECT SUPP.RECT RC PRN (11:00)
[2021-12-18] MEDS ORDERED: MAGNESIUM HYDROXIDE 30 ML UDC GT PRN (11:00)
[2021-12-18] MEDS ORDERED: MAG HYDROX/AL HYDROX/SIMETH 30 ML UDC PO PRN (11:00)
[2021-12-18] MEDS ORDERED: ACETAMINOPHEN ES 500 MG TABLET GT PRN (11:00)
[2021-12-18] MEDS ORDERED: ONDANSETRON HCL/PF 4 MG/2 ML VIAL IVP PRN (11:00)
--- NOTE | 2021-12-18 11:00 | NUR ---
CALLED [facility] FOR VANCOMYCIN.
--- NOTE | 2021-12-18 11:30 | NUR ---
SEEN BY WOUND CARE NURSE
--- NOTE | 2021-12-18 11:37 | NUR ---
WOUND CARE CONSULT: PT PRESENTS WITH BILATERAL NEPHROSTOMY TUBES (LEAKAGE NOTED TO LEFT ONE) AND SACRAL INTACT DEEP TISSUE INJURY WITH SURROUNDING SCARRING, PRESENT ON ADMISSION. RECOMMENDATIONS MADE FOR SKIN PROTECTION. DISCUSSED WITH NURSING STAFF. SURGICAL CONSULT CALLED TO DR KOHANZADEH. CORTES IN AGREEMENT WITH PLAN OF CARE. Addendum: 12/18/21 at 1143 by MATHEW FERNANDES WNDNU NURSING STAFF TO PROTECT SACRAL AREA WITH FOAM DRESSING AND OFFLOAD. THANK YOU.
[2021-12-18] MEDS ORDERED: PIPERACILLIN /TAZOBACTAM 3.375 G in IV D5W 50 ML IV SCH (12:00)
[2021-12-18] MEDS ORDERED: ALBUTEROL SULFATE 8 GM HFA.AER.AD IH SCH (12:00)
--- NOTE | 2021-12-18 12:12 | NUR ---
COVID RESULT CONVEYED TO ANAIS SINCLAIR.
[2021-12-18] MEDS ORDERED: NEPRO 1,000 ML BOTTLE GT PRN ×2 (12:30→16:00)
--- NOTE | 2021-12-18 12:48 | NUR ---
GOING TO 120.1
--- NOTE | 2021-12-18 12:55 | NUR ---
TO GIVE REPORT TO 120 TELE NURSE SCOOTER BUT SHE'S NOT AVAILABLE. PER CN GENER PUSH PATIENT TO ROOM VIA STRETCHER. WILL FF UP REPORT
[2021-12-18] MEDS: BLOOD SUGAR DIAGNOSTIC 1 EACH STRIP IN SCH ×3 (13:00→22:02)
[2021-12-18] MEDS ORDERED: ALBUTEROL FS 2.5 MG/3 ML VIAL.NEB NEB PRN (13:00)
[2021-12-18] MEDS ORDERED: PIPERACILLIN /TAZOBACTAM 2.25 G in IV D5W 50 ML IV SCH (13:00)
--- NOTE | 2021-12-18 13:03 | NUR ---
TRANSFERRED PATIENT TO 120 TELE
--- NOTE | 2021-12-18 13:15 | NUR ---
GAVE REPORT TO JOSIE BENSON. INFORMED HER THAT BS 187 AND DIDN'T GIVE INSULIN YET COZ PT HAVEN'T STARTED FEEDING
[2021-12-18] MEDS: PIPERACILLIN /TAZOBACTAM 3.375 G in IV D5W 50 ML IV SCH ×2 (15:24→18:31)
[2021-12-18] MEDS: IV NS 0.9% 1,000 ML IV PRN (15:25)
[2021-12-18 16:00] VITALS: BP 94/50
[2021-12-18] MEDS: INSULIN REGULAR, HUMAN 100 UNIT/ML 3 ML VIAL SQ PRN (18:45)
[2021-12-18] MEDS: ALBUTEROL FS 2.5 MG/3 ML VIAL.NEB NEB SCH (19:29)
--- NOTE | 2021-12-18 19:30 | NUR ---
RN CLOSING NOTE PATIENT RESTING IN BED A/O X 1. NO CURRENT SIGNS OF PAIN OR DISTRESS. PATIENT IS ON BILATERAL WRIST RESTRAINTS DUE TO PULLING T-PIECE. IV ACCESS ANDREA MIDLINE INTACT AND PATIENT. NS RUNNING. G TUBE RUNNING NEPRO AT 25MLS HR. SAFETY MEASURE IN PLACE BED LOCKED IN THE LOWEST POSITION CALL LIGHT WITHIN REACH WILL ENDORSE TO NIGHT NURSE FOR KI.
--- NOTE | 2021-12-18 19:35 | NUR ---
KEILA/CEMENT MASON APPRENTICE RECIEVED REPORT FROM DAY NURSE. SEE FLOWSHEET FOR ASSESSMENT. PT WAS TUNED AND REPOSITIONED FOR COMFORT AND CARE. NO DISTRESS SEEN AT THIS TIME. WILL CONTINUE TO MONITOR THIS PT.
[2021-12-18 20:00] VITALS: BP 95/54
[2021-12-18] MEDS: METOPROLOL TARTRATE 25 MG TABLET GT SCH (21:00)
[2021-12-18] MEDS: INSULIN GLARGINE, 100 UNIT/ML CARTRIDGE SQ SCH (21:00)
--- NOTE | 2021-12-18 21:30 | NUR ---
KEILA/RPG PROGRAMMER ANALYST LOPRESSOR WAS HELD DUE TO LOW BLOOD PRESSURE. CALLED THE PORCELAIN TECHNICIAN JEAN FOR PARAMETERS WHICH WAS HOLD. ORDERS CARRIED OUT.
[2021-12-18] MEDS ORDERED: MEROPENEM 500 MG in IV NS 0.9% 50 ML IV SCH (22:00)
[2021-12-18] MEDS: CHLORHEXIDINE GLUCONATE 15 ML UDC MM SCH (22:00)
[2021-12-18] MEDS: TAMSULOSIN 0.4 MG CAP.SR.24H GT SCH (22:00)
[2021-12-18] MEDS ORDERED: FENOFIBRATE NANOCRYS (145 MG) 145 MG TABLET GT SCH (22:00)
[2021-12-18] MEDS: ATORVASTATIN 40 MG TABLET GT SCH (22:04)
[2021-12-18] MEDS ORDERED: MEROPENEM 500 MG VIAL IV ONE (22:06)
[2021-12-18] MEDS: TRAZODONE 50 MG TABLET GT SCH (22:07)
--- NOTE | 2021-12-18 22:45 | NUR ---
KEILA/DIRECTOR BEHAVIORAL HEALTH PT'S BLOOD SUGAR IS 78, LANTUS WAS HELD AT THIS TIME FOR STABLE BLOOD SUGAR. CALLED THE VP PACKAGING JEAN MADE HER AWARE OF STABLE BP. SAID YES OK TO HOLD.
[2021-12-19] VITALS (8 sets, daily range): BP systolic 95–119; BP diastolic 49–72
--- NOTE | 2021-12-19 | NUR ---
KEILA/CONTENT PRODUCER INFECTIOUS DISEASE EXECUTIVE KITCHEN MANAGER CAME IN AND ORDERED MERREM IV AND THEN D/C'D ZOSYN. THIS ORDER WAS CARRIED OUT AND CHARGE NURSE MADE AWARE.
[2021-12-19] MEDS: ALBUTEROL FS 2.5 MG/3 ML VIAL.NEB NEB SCH ×4 (01:54→20:19)
--- NOTE | 2021-12-19 02:23 | NUR ---
KEILA/FIRE EATER PM CARE WAS PROVIDED AT THIS TIME ALONG WITH ORAL CARE. PT WAS THEN TUNED AND REPOSITED FOR COMFORT AND CARE. PT TOLERATED THIS WELL. WILL CONTINUE TO MONITOR THIS PT.
--- NOTE | 2021-12-19 05:35 | NUR ---
KEILA/DENTAL MOLD MAKER PT HAS POSITIVE BLOOD CULTURE OF GRAM NEGATIVE RODS IN BLOOD. PT IS CURRENTLY ON VANCO AND MERREM. WILL PASS THIS ON TO DAY NURSE TO CALL DR STEARNS.
[2021-12-19] MEDS: BLOOD SUGAR DIAGNOSTIC 1 EACH STRIP IN SCH ×3 (05:38→18:53)
[2021-12-19] MEDS: IV NS 0.9% 1,000 ML IV PRN ×2 (05:38→19:47)
[2021-12-19 06:53] LABS: CALCIUM, SERUM 7.8 mg/dL (8.5-10.1); MAGNESIUM 1.9 mg/dL (1.8-2.4); PHOSPHORUS 2.3 mg/dL (2.5-4.9); POTASSIUM 3.5 mmol/L (3.5-5.1)
[2021-12-19] MEDS: INSULIN GLARGINE, 100 UNIT/ML CARTRIDGE SQ SCH ×2 (09:00→23:48)
[2021-12-19] MEDS: AMLODIPINE BESYLATE 2.5 MG TABLET GT SCH (09:00)
[2021-12-19] MEDS: METOPROLOL TARTRATE 25 MG TABLET GT SCH ×2 (09:00→22:37)
[2021-12-19] MEDS: FLUDROCORTISONE 0.1 MG TABLET GT SCH (09:05)
[2021-12-19] MEDS: PANTOPRAZOLE 40 MG/PACK PACK GT SCH (09:05)
[2021-12-19] MEDS: CHLORHEXIDINE GLUCONATE 15 ML UDC MM SCH ×2 (09:05→22:38)
[2021-12-19] MEDS: TAMSULOSIN 0.4 MG CAP.SR.24H GT SCH ×2 (09:05→22:37)
[2021-12-19] MEDS: CLOPIDOGREL BISULFATE 75 MG TABLET GT SCH (09:06)
[2021-12-19 09:26] LABS: BASOPHILS % (AUTO) 0.4 % (0.0-2.0); EOSINOPHILS % (AUTO) 1.3 % (0.0-6.0); LYMPHOCYTES # (AUTO) 0.5 K/uL (0.8-4.8); LYMPHOCYTES % (AUTO) 4.7 % (20.0-44.0); MEAN CORPUSCULAR HGB CONC 33 g/dl (31.0-36.0); MEAN CORPUSCULAR VOLUME 83 fL (82-100); MONOCYTES % (AUTO) 9.6 % (2.0-12.0); NEUTROPHILS # (AUTO) 8.9 K/uL (1.8-8.9); PLATELET COUNT (AUTO) 471 K/uL (150-450); RED BLOOD CELL COUNT(AUTO) 2.31 MIL/uL (4.0-5.2); WHITE BLOOD COUNT (AUTO) 10.7 K/uL (4.3-11.0)
[2021-12-19 09:30] LABS: HEMATOCRIT 19 % (33-45); HEMOGLOBIN 6.3 g/dL (11.5-14.8)
--- NOTE | 2021-12-19 10:00 | NUR ---
RN NOTE PER LAB CRITICAL H/H OF 6.3 HGB AND 19HCT
--- NOTE | 2021-12-19 10:34 | NUR ---
RN NOTE PER PROVIDER RIGOBERTO K 2 UNITS RBC
[2021-12-19] MEDS: MEROPENEM 500 MG in IV NS 0.9% 50 ML IV SCH ×2 (10:40→22:39)
[2021-12-19 16:14] LABS: BAND % (MANUAL) 2 % (0.0-5.0); EOSINOPHILS % (MANUAL) 2 % (0-4); LYMPHOCYTES % (MANUAL) 4 % (16-48); MONOCYTES % (MANUAL) 4 % (0-11.0); NEUTROPHILS % (MANUAL) 88 (42-76)
--- NOTE | 2021-12-19 17:00 | NUR ---
RN NOTE SPOKE TO BLOOD BANK. THEY STATED BLOOD WILL NOT BE READY. WILL HAVE TO RECEIVE BLOOD FROM [facility]. WILL ENDORSE TO NOC NURSE
[2021-12-19] MEDS: TRAZODONE 50 MG TABLET GT SCH (22:37)
[2021-12-19] MEDS: ATORVASTATIN 40 MG TABLET GT SCH (22:37)
[2021-12-19] MEDS: INSULIN REGULAR, HUMAN 100 UNIT/ML 3 ML VIAL SQ PRN (22:54)
[2021-12-19] MEDS ORDERED: VANCOMYCIN 500 MG in IV D5W 100 ML IV SCH (23:00)
[2021-12-20] VITALS: BP 112/67
[2021-12-20] MEDS: INSULIN REGULAR, HUMAN 100 UNIT/ML 3 ML VIAL SQ PRN ×3 (00:07→13:19)
[2021-12-20] MEDS: BLOOD SUGAR DIAGNOSTIC 1 EACH STRIP IN SCH ×4 (00:08→17:09)
[2021-12-20] MEDS: ALBUTEROL FS 2.5 MG/3 ML VIAL.NEB NEB SCH ×4 (02:17→20:04)
[2021-12-20 04:00] VITALS: BP 123/67
--- NOTE | 2021-12-20 04:40 | NUR ---
RN notes Alert x 1. Non verbal. Opens eyes with no eye contact. No physical manifestation of pain or discomfort. No distress noted. On t-piece via trach at 2lpms tolerating well. S/P 1 bag RBC transfusion, tolerated well. Next bag will be administered next shift. Vital signs WNL. No significant change of condition. Kept clean and dry. Will endorse to next shift for continuity of care.
[2021-12-20] MEDS: IV NS 0.9% 1,000 ML IV PRN ×2 (06:20→17:09)
--- NOTE | 2021-12-20 07:30 | NUR ---
RN NEW GRAD OPENING NOTES RECEIVED PATIENT ON BED AWAKE AND A/O X1. WITH T-PIECE ON CONNECTED TO O2 WITH HUMIDIFIER AT 6LPM TOLERATING WELL. NO SOB NOTED. NOT IN DISTRESS. ON TELE MONITOR CURRENTLY READING SINUS RHYTHM AT 79BPM. WITH NO COMPLAINTS OF PAIN VIA FLACC LEVEL OF PAIN. WITH 2 NEPHROSTOMY TUBE DRAINING CLEAR YELLOWISH URINE WITH PRESENCE OF MINIMAL SEDIMENTS. ON NEPRO FEEDING AT 35ML/HR VIA G-TUBE TOLERATING WELL. WITH IV ACCESS AT LEFT UPPER ARM MIDLINE WITH IVF NS AT 90ML/HR INFUSING WELL. SAFETY MEASURES IN PLACED. CALL LIGHT WITHIN REACH. BED ON LOWEST LOCKED POSITION, SIDE RAILS UP X2. WILL CONTINUE TO MONITOR.
[2021-12-20 07:44] LABS: CALCIUM, SERUM 7.8 mg/dL (8.5-10.1); CREATININE 2.6 mg/dL (0.6-1.3); POTASSIUM 3.4 mmol/L (3.5-5.1)
[2021-12-20 08:00] VITALS: BP 127/68
[2021-12-20 08:25] LABS: BASOPHILS % (AUTO) 0.4 % (0.0-2.0); EOSINOPHILS % (AUTO) 2.1 % (0.0-6.0); HEMATOCRIT 25 % (33-45); HEMOGLOBIN 8.2 g/dL (11.5-14.8); LYMPHOCYTES # (AUTO) 0.5 K/uL (0.8-4.8); LYMPHOCYTES % (AUTO) 5.3 % (20.0-44.0); MEAN CORPUSCULAR HGB CONC 33 g/dl (31.0-36.0); MEAN CORPUSCULAR VOLUME 83 fL (82-100); MONOCYTES # (AUTO) 1.2 K/uL (0.1-1.30); MONOCYTES % (AUTO) 11.9 % (2.0-12.0); NEUTROPHILS # (AUTO) 8.3 K/uL (1.8-8.9); NEUTROPHILS % (AUTO) 80.3 % (43.0-81.0); PLATELET COUNT (AUTO) 500 K/uL (150-450); RED BLOOD CELL COUNT(AUTO) 3.03 MIL/uL (4.0-5.2); WHITE BLOOD COUNT (AUTO) 10.3 K/uL (4.3-11.0)
[2021-12-20] MEDS: FERROUS SULFATE UDC 300 MG/5 ML UDC GT SCH (09:13)
[2021-12-20] MEDS: TAMSULOSIN 0.4 MG CAP.SR.24H GT SCH ×2 (09:13→22:00)
[2021-12-20] MEDS: CLOPIDOGREL BISULFATE 75 MG TABLET GT SCH (09:13)
[2021-12-20] MEDS: FLUDROCORTISONE 0.1 MG TABLET GT SCH (09:13)
[2021-12-20] MEDS: CHLORHEXIDINE GLUCONATE 15 ML UDC MM SCH ×2 (09:13→22:01)
[2021-12-20] MEDS: METOPROLOL TARTRATE 25 MG TABLET GT SCH ×2 (09:14→22:31)
[2021-12-20] MEDS: AMLODIPINE BESYLATE 2.5 MG TABLET GT SCH (09:14)
[2021-12-20] MEDS: PANTOPRAZOLE 40 MG/PACK PACK GT SCH (09:14)
[2021-12-20] MEDS: INSULIN GLARGINE, 100 UNIT/ML CARTRIDGE SQ SCH ×2 (09:30→22:04)
[2021-12-20] MEDS: MEROPENEM 500 MG in IV NS 0.9% 50 ML IV SCH ×2 (09:32→21:59)
--- NOTE | 2021-12-20 11:42 | NUR ---
WOUND CARE: PT ON SEBASTIAN ISOFLEX LOW AIRLOSS BED. ALL SKIN PROTECTION MEASURES IN PLACE AND DISCUSSED WITH NURSING STAFF. PT IS FOLLOWED BY SURGICAL TEAM FOR SACRAL DEEP TISSUE INJURY, PRESENT ON ADMISSION. MD IN AGREEMENT WITH PLAN OF CARE.
--- NOTE | 2021-12-20 11:50 | NUR ---
RN NOTE RIGOBERTO KING NP MADE AWARE THAT PATIENT'S HGB IS 8.4 AND ORDERED TO NOT GIVE THE SECOND UNIT OF PRBC FOR BLOOD TRANSFUSION.
[2021-12-20 12:00] VITALS: BP 130/83
--- NOTE | 2021-12-20 12:00 | NUR ---
RN NOTE RIGOBERTO KING MADE AWARE THAT PATIENT'S POTASSIUM LEVEL IS 3.4 AND MADE TO ORDER FOR POTASSIUM REPLACEMENT.
[2021-12-20 16:00] VITALS: BP 130/64
[2021-12-20] MEDS: NEPRO 1,000 ML BOTTLE GT SCH (17:46)
--- NOTE | 2021-12-20 18:46 | NUR ---
KNOT TIER CLOSING NOTES PATIENT ON BED RESTING AND A/O X1. WITH T-PIECE ON CONNECTED TO O2 WITH HUMIDIFIER AT 6LPM TOLERATING WELL. NO SOB NOTED. NOT IN DISTRESS. ON TELE MONITOR CURRENTLY READING SINUS RHYTHM AT 79BPM. WITH NO COMPLAINTS OF PAIN VIA FLACC LEVEL OF PAIN. WITH 2 NEPHROSTOMY TUBE DRAINING CLEAR YELLOWISH URINE. ON NEPRO FEEDING AT 35ML/HR VIA G-TUBE TOLERATING WELL. WITH IV ACCESS AT LEFT UPPER ARM MIDLINE WITH IVF NS AT 90ML/HR INFUSING WELL. DUE MEDS GIVEN. SAFETY MEASURES IN PLACED. CALL LIGHT WITHIN REACH. BED ON LOWEST LOCKED POSITION, SIDE RAILS UP X2. WILL ENDORSE TO NEXT SHIFT FOR KI.
[2021-12-20 20:00] VITALS: BP 128/64
[2021-12-20] MEDS: TRAZODONE 50 MG TABLET GT SCH (22:00)
[2021-12-20] MEDS: ATORVASTATIN 40 MG TABLET GT SCH (22:00)
[2021-12-21] VITALS: BP 130/70
[2021-12-21] MEDS: BLOOD SUGAR DIAGNOSTIC 1 EACH STRIP IN SCH ×5 (00:48→22:28)
[2021-12-21] MEDS: INSULIN REGULAR, HUMAN 100 UNIT/ML 3 ML VIAL SQ PRN ×2 (00:50→06:50)
[2021-12-21] MEDS: ALBUTEROL FS 2.5 MG/3 ML VIAL.NEB NEB SCH ×4 (02:19→20:26)
[2021-12-21 04:00] VITALS: BP 132/62
[2021-12-21] MEDS: IV NS 0.9% 1,000 ML IV PRN ×2 (04:44→18:48)
--- NOTE | 2021-12-21 07:03 | NUR ---
RN notes Alert x 2, non verbal. Eyes open with eye contact. Withdraws from touch. In bed resting comfortably with no distress noted. On T-pice via trach at 5lpm tolerating well. No physical manifestation of pain or discomfort. No significant change of condition. Vital signs wnl. Kept clean and dry. Will endorse to next shift for continuity of care.
--- NOTE | 2021-12-21 07:30 | NUR ---
RN OPENING NOTE PATIENT ON BED RESTING AND A/O X1. WITH T-PIECE ON CONNECTED TO O2 WITH HUMIDIFIER AT 6LPM TOLERATING WELL. NO SOB NOTED. NOT IN DISTRESS. ON TELE MONITOR CURRENTLY READING SINUS RHYTHM. WITH NO COMPLAINTS OF PAIN VIA FLACC LEVEL OF PAIN. WITH 2 NEPHROSTOMY TUBE DRAINING CLEAR YELLOWISH URINE. ON NEPRO FEEDING AT 35ML/HR VIA G-TUBE TOLERATING WELL. WITH IV ACCESS AT LEFT UPPER ARM MIDLINE WITH IVF NS AT 90ML/HR INFUSING WELL. SAFETY MEASURES IN PLACED. CALL LIGHT WITHIN REACH. BED ON LOWEST LOCKED POSITION, SIDE RAILS UP X2. WILL CONTINUE TO MONITOR.
[2021-12-21 08:00] VITALS: BP 150/90
[2021-12-21] MEDS: FLUDROCORTISONE 0.1 MG TABLET GT SCH (08:40)
[2021-12-21] MEDS: PANTOPRAZOLE 40 MG/PACK PACK GT SCH (08:40)
[2021-12-21] MEDS: TAMSULOSIN 0.4 MG CAP.SR.24H GT SCH ×2 (08:40→21:48)
[2021-12-21] MEDS: AMLODIPINE BESYLATE 2.5 MG TABLET GT SCH (08:41)
[2021-12-21] MEDS: CHLORHEXIDINE GLUCONATE 15 ML UDC MM SCH ×2 (08:42→21:46)
[2021-12-21] MEDS: METOPROLOL TARTRATE 25 MG TABLET GT SCH ×2 (08:42→21:49)
[2021-12-21] MEDS: CLOPIDOGREL BISULFATE 75 MG TABLET GT SCH (08:42)
[2021-12-21] MEDS: INSULIN GLARGINE, 100 UNIT/ML CARTRIDGE SQ SCH ×2 (08:46→22:29)
--- NOTE | 2021-12-21 08:47 | NUR ---
RN NOTE INSULIN LANTUS HELD IN THE AM. BLOOD SUGAR AT 75 AT 0600 ACCU CHK. WILL CONTINUE TO MONITOR BLOOD SUGAR ACCORDINGLY.
[2021-12-21 10:19] LABS: BASOPHILS % (AUTO) 0.5 % (0.0-2.0); EOSINOPHILS % (AUTO) 2.1 % (0.0-6.0); HEMATOCRIT 25 % (33-45); HEMOGLOBIN 8.2 g/dL (11.5-14.8); LYMPHOCYTES # (AUTO) 0.8 K/uL (0.8-4.8); LYMPHOCYTES % (AUTO) 8.7 % (20.0-44.0); MEAN CORPUSCULAR HGB CONC 34 g/dl (31.0-36.0); MEAN CORPUSCULAR VOLUME 82 fL (82-100); MONOCYTES # (AUTO) 1.1 K/uL (0.1-1.30); MONOCYTES % (AUTO) 11.7 % (2.0-12.0); NEUTROPHILS # (AUTO) 7.4 K/uL (1.8-8.9); PLATELET COUNT (AUTO) 516 K/uL (150-450); RED BLOOD CELL COUNT(AUTO) 2.98 MIL/uL (4.0-5.2); WHITE BLOOD COUNT (AUTO) 9.6 K/uL (4.3-11.0)
[2021-12-21 10:39] LABS: CALCIUM, SERUM 7.6 mg/dL (8.5-10.1); CREATININE 2.5 mg/dL (0.6-1.3); POTASSIUM 3.4 mmol/L (3.5-5.1)
[2021-12-21] MEDS: MEROPENEM 500 MG in IV NS 0.9% 50 ML IV SCH ×2 (10:39→21:57)
[2021-12-21 12:00] VITALS: BP 140/88
[2021-12-21 16:00] VITALS: BP 133/65
--- NOTE | 2021-12-21 18:57 | NUR ---
RN CLOSING NOTE PATENT IN BED, REMAINS, IN NO ACUTE DISTRESS OBSERVED. RESPIRATORY EVEN AND UNLABORED ON T PIECE. SKIN IS WARM TO TOUCH KEEP CLEAN/DRY, INTACT IV SITE. NEPHRO TUBE CONNECTING TO THE URINE BAG, 700ML OUT PUT. KEPT ELEVATE HOB FOR ASPIRATION PRECAUTION AND ENSURE AIRWAY, ALSO LOWEST POSITION OF THE BED FOR SAFETY. CALL LIGHT WITHIN REACH, WILL ENDORSE TO NETWORK OPERATIONS CENTER ENGINEER.
[2021-12-21 20:00] VITALS: BP 136/74
[2021-12-21] MEDS: ATORVASTATIN 40 MG TABLET GT SCH (21:48)
[2021-12-21] MEDS: TRAZODONE 50 MG TABLET GT SCH (21:49)
[2021-12-22] MEDS: INSULIN REGULAR, HUMAN 100 UNIT/ML 3 ML VIAL SQ PRN ×4 (00:24→23:59)
[2021-12-22] MEDS: ALBUTEROL FS 2.5 MG/3 ML VIAL.NEB NEB SCH ×4 (01:10→19:30)
--- NOTE | 2021-12-22 02:02 | NUR ---
RESTRAINTS RENEW Released soft wrist restraint, Right arm CSM intact, no skin injury under wrist restraint. Patient still attempted pulling out tubes and lines. Soft wrist restraint renewed.
[2021-12-22 04:43] VITALS: BP 142/72
[2021-12-22] MEDS: BLOOD SUGAR DIAGNOSTIC 1 EACH STRIP IN SCH ×4 (05:31→23:58)
--- NOTE | 2021-12-22 06:34 | NUR ---
END OF SHIFT Patient in bed, non verbal. Trach intact, T-Piece to cool aerosol 5L Oxygen. IVF infusing, on IV abx Remains afebrile. Gtube intact, on Nepro at 35ml/hr, tolerating well. Nephrostomy tube in place, output large amount. Patient is bedbound, turned and repositioned. Soft wrist restraints in place, CSM intact, renewed d/t patient still attempting to remove tubing. Fall precaution maintained. Will endorse to oncoming RN.
[2021-12-22 07:11] LABS: BASOPHILS # (AUTO) 0.1 K/uL (0.0-0.2); BASOPHILS % (AUTO) 0.7 % (0.0-2.0); EOSINOPHILS % (AUTO) 3.3 % (0.0-6.0); HEMATOCRIT 25 % (33-45); HEMOGLOBIN 8.4 g/dL (11.5-14.8); LYMPHOCYTES # (AUTO) 0.9 K/uL (0.8-4.8); LYMPHOCYTES % (AUTO) 10.2 % (20.0-44.0); MEAN CORPUSCULAR HGB CONC 33 g/dl (31.0-36.0); MEAN CORPUSCULAR VOLUME 82 fL (82-100); MONOCYTES # (AUTO) 0.8 K/uL (0.1-1.30); MONOCYTES % (AUTO) 9.1 % (2.0-12.0); NEUTROPHILS % (AUTO) 76.7 % (43.0-81.0); PLATELET COUNT (AUTO) 539 K/uL (150-450); RED BLOOD CELL COUNT(AUTO) 3.06 MIL/uL (4.0-5.2); WHITE BLOOD COUNT (AUTO) 9.1 K/uL (4.3-11.0)
[2021-12-22] MEDS: IV NS 0.9% 1,000 ML IV PRN (07:21)
[2021-12-22 07:37] LABS: CALCIUM, SERUM 8.3 mg/dL (8.5-10.1); CREATININE 2.5 mg/dL (0.6-1.3); POTASSIUM 3.3 mmol/L (3.5-5.1)
--- NOTE | 2021-12-22 08:00 | NUR ---
RN OPENING NOTE PATIENT ON BED RESTING AND A/O X1. WITH T-PIECE ON CONNECTED TO O2 WITH HUMIDIFIER AT 6LPM TOLERATING WELL SATING AT 99%. NO SOB NOTED. NOT IN DISTRESS. ON TELE MONITOR CURRENTLY READING SINUS RHYTHM. WITH NO COMPLAINTS OF PAIN VIA FLACC LEVEL OF PAIN. WITH 2 NEPHROSTOMY TUBE DRAINING CLEAR YELLOWISH URINE. ON NEPRO FEEDING AT 35ML/HR VIA G-TUBE TOLERATING WELL. WITH IV ACCESS AT LEFT UPPER ARM MIDLINE WITH IVF NS AT 90ML/HR INFUSING WELL. ALL SAFETY MEASURES IN PLACED. CALL LIGHT WITHIN REACH. BED ON LOWEST LOCKED POSITION, SIDE RAILS UP X2. WILL CONTINUE TO MONITOR THROUGHOUT SHIFT.
[2021-12-22] MEDS: TAMSULOSIN 0.4 MG CAP.SR.24H GT SCH ×2 (08:49→21:40)
[2021-12-22] MEDS: METOPROLOL TARTRATE 25 MG TABLET GT SCH ×2 (08:49→21:41)
[2021-12-22] MEDS: CLOPIDOGREL BISULFATE 75 MG TABLET GT SCH (08:49)
[2021-12-22] MEDS: PANTOPRAZOLE 40 MG/PACK PACK GT SCH (08:49)
[2021-12-22] MEDS: AMLODIPINE BESYLATE 2.5 MG TABLET GT SCH (08:49)
[2021-12-22] MEDS: FLUDROCORTISONE 0.1 MG TABLET GT SCH (08:50)
[2021-12-22] MEDS: FERROUS SULFATE UDC 300 MG/5 ML UDC GT SCH (08:50)
[2021-12-22] MEDS: CHLORHEXIDINE GLUCONATE 15 ML UDC MM SCH ×2 (08:50→21:41)
[2021-12-22] MEDS: MEROPENEM 500 MG in IV NS 0.9% 50 ML IV SCH ×2 (09:16→21:40)
[2021-12-22] MEDS: INSULIN GLARGINE, 100 UNIT/ML CARTRIDGE SQ SCH ×2 (09:26→22:00)
[2021-12-22] MEDS ORDERED: POTASSIUM CHLORIDE 20 MEQ POWDER PACKET PEG ONE (10:00)
[2021-12-22] MEDS: LEVOFLOXACIN (250MG) 250 MG TABLET PO SCH (10:17)
[2021-12-22 12:00] VITALS: BP 136/64
--- NOTE | 2021-12-22 18:49 | NUR ---
RN CLOSING NOTE PATENT IN BED, REMAINS, IN NO ACUTE DISTRESS OBSERVED. RESPIRATORY EVEN AND UNLABORED ON T PIECE. SKIN IS WARM TO TOUCH KEEP CLEAN/DRY, INTACT IV SITE. NEPHRO TUBE CONNECTING TO THE URINE BAG, 1100ML OUTPUT. KEPT ELEVATE HOB FOR ASPIRATION PRECAUTION AND ENSURE AIRWAY, BED IN LOWEST LOCKED POSITION, SR UP X2, CALL LIGHT WITHIN REACH, WILL ENDORSE TO MID LEVEL PROJECT MANAGER NURSE FOR KI.
--- NOTE | 2021-12-22 18:57 | NUR ---
RN NOTES RECHECKED BLOOD GLUCOSE AFTER ONE HOUR OF GIVING ORANGE JUICE. BLOOD GLUCOSE NOW 87.
--- NOTE | 2021-12-22 19:45 | NUR ---
RN NOTE PT RECEIVED IN BED. PT IS ON T-PIECE AT 5L SHOWING NO S/S OF RESP DISTRESS. BREATHING EVEN AND UNLABORED. PT IS A/OX1. NEPHRO TUBE NOTED. RIGHT HAND SOFT WRIST RESTRAINT NOTED. ALL SAFETY PROTOCOLS INITIALED/IMPLEMENTED. GT INTACT AND PATENT. IV ACCESS NOTED ON LEFT UPPER ARM ML. 0.9% NS RUNNING AT 60 CC/HR. ALL SAFETY MEASURES IMPLEMENTED. HOB ELEVATED. BED ALARM ON. BED LOCKED AND IN LOWEST POSITION. WILL CONTINUE TO MONITOR AND ASSESS FOR ANY CHANGES DURING SHIFT.
[2021-12-22 20:00] VITALS: BP 139/79
[2021-12-22] MEDS: TRAZODONE 50 MG TABLET GT SCH (21:40)
[2021-12-22] MEDS: ATORVASTATIN 40 MG TABLET GT SCH (21:40)
[2021-12-22] MEDS: NEPRO 1,000 ML BOTTLE GT SCH (21:41)
--- NOTE | 2021-12-22 22:10 | NUR ---
RN NOTE TUBE FEEDING NOT RUNNING DURING DAY. STARTED FEEDING NOW. CURRENT BS 73. INSULIN LANTUS NOT ADMINISTERED. SKEIN WINDING OPERATOR AWARE. WILL RE-ASSESS AND CONTINUE TO MONITOR.
--- NOTE | 2021-12-23 | NUR ---
RN NOTE BLOOD SUGAR 80. NO INSULIN COVERAGE REQUIRED PER SLIDING SCALE. WILL CONTINUE TO MONITOR.
[2021-12-23] MEDS: ALBUTEROL FS 2.5 MG/3 ML VIAL.NEB NEB SCH ×4 (02:40→19:54)
[2021-12-23 04:00] VITALS: BP 115/70
[2021-12-23] MEDS: INSULIN REGULAR, HUMAN 100 UNIT/ML 3 ML VIAL SQ PRN ×3 (06:10→17:32)
[2021-12-23] MEDS: BLOOD SUGAR DIAGNOSTIC 1 EACH STRIP IN SCH ×3 (06:10→17:07)
--- NOTE | 2021-12-23 08:05 | NUR ---
RN OPENING NOTE PATIENT ON BED RESTING AND A/O X1-2. WITH T-PIECE ON CONNECTED TO O2 WITH HUMIDIFIER AT 6LPM TOLERATING WELL SATING AT 99%. NO SOB NOTED. NOT IN DISTRESS. ON TELE MONITOR CURRENTLY READING SINUS RHYTHM. WITH NO COMPLAINTS OF PAIN VIA FLACC LEVEL OF PAIN. WITH 2 NEPHROSTOMY TUBE DRAINING CLEAR YELLOWISH URINE. ON NEPRO FEEDING AT 35ML/HR VIA G-TUBE TOLERATING WELL. WILL STOP FEEDING AT 1745 ER MD ORDER. WITH IV ACCESS AT LEFT UPPER ARM MIDLINE WITH IVF NS AT 90ML/HR INFUSING WELL. ALL SAFETY MEASURES IN PLACED. CALL LIGHT WITHIN REACH. BED ON LOWEST LOCKED POSITION, SR UP X2, WILL CONTINUE TO MONITOR THROUGHOUT SHIFT.
[2021-12-23] MEDS: CLOPIDOGREL BISULFATE 75 MG TABLET GT SCH (08:53)
[2021-12-23] MEDS: METOPROLOL TARTRATE 25 MG TABLET GT SCH ×2 (08:53→21:43)
[2021-12-23] MEDS: FLUDROCORTISONE 0.1 MG TABLET GT SCH (08:53)
[2021-12-23] MEDS: AMLODIPINE BESYLATE 2.5 MG TABLET GT SCH (08:53)
[2021-12-23] MEDS: TAMSULOSIN 0.4 MG CAP.SR.24H GT SCH ×2 (08:54→21:29)
[2021-12-23] MEDS: PANTOPRAZOLE 40 MG/PACK PACK GT SCH (08:54)
[2021-12-23] MEDS: CHLORHEXIDINE GLUCONATE 15 ML UDC MM SCH ×2 (08:54→21:44)
[2021-12-23] MEDS: INSULIN GLARGINE, 100 UNIT/ML CARTRIDGE SQ SCH ×2 (09:57→21:42)
[2021-12-23] MEDS: LEVOFLOXACIN (250MG) 250 MG TABLET PO SCH (10:01)
[2021-12-23] MEDS: MEROPENEM 500 MG in IV NS 0.9% 50 ML IV SCH ×2 (10:01→21:59)
--- NOTE | 2021-12-23 11:33 | NUR ---
RN NOTES PT HAS REFUSED THE BLOOD DRAWS X 3 AND ALSO REFUSES FOR NEPHROSTOMY TUBE PROCEDURE. I HAVE REACHED OUT TO FAMILY AND LEFT A MESSAGE TO SEE IF THEY ARE WILLING TO TALK TO HER ABOUT CONSENTING FOR PROCEDURE AND BLOOD DRAWS.
[2021-12-23 12:00] VITALS: BP 164/75
--- NOTE | 2021-12-23 12:30 | NUR ---
RN NOTES OBTAINED PHONE CONSENT FROM MIRIAN HANSON FOR NEPHROSTOMY TUBE PLACEMENT PROCEDURE. BLOOD DRAW WITH SHIRRING MACHINE OPERATOR AUTOMATIC COMPLETE.
[2021-12-23 13:14] LABS: BASOPHILS % (AUTO) 0.5 % (0.0-2.0); EOSINOPHILS % (AUTO) 2.2 % (0.0-6.0); HEMATOCRIT 28 % (33-45); HEMOGLOBIN 9.1 g/dL (11.5-14.8); LYMPHOCYTES % (AUTO) 10.8 % (20.0-44.0); MEAN CORPUSCULAR HGB CONC 32 g/dl (31.0-36.0); MEAN CORPUSCULAR VOLUME 83 fL (82-100); MONOCYTES # (AUTO) 0.7 K/uL (0.1-1.30); MONOCYTES % (AUTO) 7.3 % (2.0-12.0); NEUTROPHILS # (AUTO) 7.4 K/uL (1.8-8.9); NEUTROPHILS % (AUTO) 79.2 % (43.0-81.0); PLATELET COUNT (AUTO) 564 K/uL (150-450); WHITE BLOOD COUNT (AUTO) 9.4 K/uL (4.3-11.0)
[2021-12-23 13:21] LABS: CALCIUM, SERUM 9.1 mg/dL (8.5-10.1); CREATININE 2.6 mg/dL (0.6-1.3); POTASSIUM 3.6 mmol/L (3.5-5.1)
--- NOTE | 2021-12-23 18:07 | NUR ---
RN CLOSING NOTE PATENT IN BED, REMAINS, IN NO ACUTE DISTRESS OBSERVED. RESPIRATORY EVEN AND UNLABORED ON T PIECE. SKIN IS WARM TO TOUCH KEEP CLEAN/DRY, INTACT IV SITE. NEPHRO TUBE CONNECTING TO THE URINE BAG, 900 ML OUTPUT. PT CONSENTED TO BLOOD DRAW AND CONSENT OBTAINED FROM NEPHEW FOR NEPHROSTOMY TUBE PROCEDURE. KEPT ELEVATE HOB FOR ASPIRATION PRECAUTION AND ENSURE AIRWAY, BED IN LOWEST LOCKED POSITION, SR UP X2, CALL LIGHT WITHIN REACH, WILL ENDORSE TO BAR GAUGER AND LUBRICATOR TENDER NURSE FOR KI.
--- NOTE | 2021-12-23 19:25 | NUR ---
RN NOTE PT AWAKE IN BED, A/OX1-2, NONVERBAL, NODS HEAD WHEN SPOKEN TO. NO S/S OF PAIN NOTED. CONNECTED TO T-PIECE @ 5LPM. NO RESPIRATORY DISTRESS. ANDREA MIDLINE INTACT/PATENT. NEPHROSTOMY TUBE IN PLACE. PT IN NO ACUTE DISTRESS. SAFETY MEASURES IN PLACE, BED IN LOWEST LOCKED POSITION, S/R UPX2, CALL LIGHT WITHIN REACH. WILL CONT TO MONITOR.
[2021-12-23 20:00] VITALS: BP 154/77
[2021-12-23] MEDS: ATORVASTATIN 40 MG TABLET GT SCH (21:30)
[2021-12-23] MEDS: TRAZODONE 50 MG TABLET GT SCH (21:30)
[2021-12-23] MEDS: NEPRO 1,000 ML BOTTLE GT SCH (21:50)
[2021-12-23] MEDS: IV NS 0.9% 1,000 ML IV PRN (21:59)
[2021-12-24] MEDS: BLOOD SUGAR DIAGNOSTIC 1 EACH STRIP IN SCH ×5 (00:02→23:51)
[2021-12-24] MEDS: ALBUTEROL FS 2.5 MG/3 ML VIAL.NEB NEB SCH ×4 (02:45→19:50)
[2021-12-24 04:00] VITALS: BP 150/71
--- NOTE | 2021-12-24 06:57 | NUR ---
RN NOTE PT RESTING IN BED, EASILY AROUSABLE TO STIMULI, RESPONDS BY NODDING OR SHAKING HEAD. NO C/O NOR S/S OF PAIN NOTED. RESPIRATIONS EVEN/UNLABORED. NEPHROSTOMY TUBES DRAINING WELL, OUTPUT R-TUBE 350, L-TUBE 500. GT INTACT/PATENT/NO RESIDUALS, ON GTF NEPRO @35ML/HR AND SUZETTE WELL. PT IN NO ACUTE DISTRESS. SAFETY MEASURES MAINTAINED.
[2021-12-24 07:15] LABS: CALCIUM, SERUM 8.7 mg/dL (8.5-10.1); CREATININE 2.8 mg/dL (0.6-1.3); POTASSIUM 3.2 mmol/L (3.5-5.1)
--- NOTE | 2021-12-24 07:35 | NUR ---
RN OPENING NOTE RECEIVED PATIENT ON BED RESTING AND A/O X1-2. WITH T-PIECE ON CONNECTED TO O2 WITH HUMIDIFIER AT 6LPM TOLERATING WELL SATING AT 98%. NO SOB NOTED. NOT IN DISTRESS. WITH 2 NEPHROSTOMY TUBE DRAINING CLEAR YELLOWISH URINE. ON NEPRO FEEDING AT 35ML/HR VIA G-TUBE TOLERATING WELL. WITH IV ACCESS AT LEFT UPPER ARM MIDLINE WITH IVF NS AT 90ML/HR INFUSING WELL. ALL SAFETY MEASURES IN PLACED. CALL LIGHT WITHIN REACH. BED ON LOWEST LOCKED POSITION, SIDERAILS UP X2, WILL CONTINUE TO MONITOR PATIENT ACCORDINGLY.
[2021-12-24 07:41] LABS: BASOPHILS # (AUTO) 0.1 K/uL (0.0-0.2); BASOPHILS % (AUTO) 0.6 % (0.0-2.0); EOSINOPHILS % (AUTO) 2.6 % (0.0-6.0); HEMATOCRIT 26 % (33-45); HEMOGLOBIN 8.6 g/dL (11.5-14.8); LYMPHOCYTES # (AUTO) 1.1 K/uL (0.8-4.8); LYMPHOCYTES % (AUTO) 11.6 % (20.0-44.0); MEAN CORPUSCULAR HGB CONC 33 g/dl (31.0-36.0); MEAN CORPUSCULAR VOLUME 83 fL (82-100); MONOCYTES # (AUTO) 0.7 K/uL (0.1-1.30); MONOCYTES % (AUTO) 7.6 % (2.0-12.0); NEUTROPHILS # (AUTO) 7.7 K/uL (1.8-8.9); NEUTROPHILS % (AUTO) 77.6 % (43.0-81.0); PLATELET COUNT (AUTO) 511 K/uL (150-450); RED BLOOD CELL COUNT(AUTO) 3.15 MIL/uL (4.0-5.2); WHITE BLOOD COUNT (AUTO) 9.9 K/uL (4.3-11.0)
[2021-12-24] MEDS: FLUDROCORTISONE 0.1 MG TABLET GT SCH (09:08)
[2021-12-24] MEDS: PANTOPRAZOLE 40 MG/PACK PACK GT SCH (09:08)
[2021-12-24] MEDS: CLOPIDOGREL BISULFATE 75 MG TABLET GT SCH (09:08)
[2021-12-24] MEDS: TAMSULOSIN 0.4 MG CAP.SR.24H GT SCH ×2 (09:08→21:03)
[2021-12-24] MEDS: CHLORHEXIDINE GLUCONATE 15 ML UDC MM SCH ×2 (09:08→21:03)
[2021-12-24] MEDS: FERROUS SULFATE UDC 300 MG/5 ML UDC GT SCH (09:08)
[2021-12-24] MEDS: AMLODIPINE BESYLATE 2.5 MG TABLET GT SCH (09:09)
[2021-12-24] MEDS: METOPROLOL TARTRATE 25 MG TABLET GT SCH ×2 (09:09→21:04)
[2021-12-24] MEDS: INSULIN GLARGINE, 100 UNIT/ML CARTRIDGE SQ SCH ×2 (09:11→21:05)
[2021-12-24] MEDS: LEVOFLOXACIN (250MG) 250 MG TABLET PO SCH (09:54)
[2021-12-24] MEDS: MEROPENEM 500 MG in IV NS 0.9% 50 ML IV SCH ×2 (09:54→21:10)
--- NOTE | 2021-12-24 11:29 | NUR ---
procedure on hold x 5 days due to pt being on plavix, grady Sandoval notified
--- NOTE | 2021-12-24 11:35 | NUR ---
RN NOTES PROCEDURE FOR NEPHROSTOMY REPLACEMENT WILL BE SCHEDULE TO BE DONE ON THURSDAY OR THURSDAY PER JERI FROM XRAY, PLAVIX WILL BE PLACE ON HOLD FOR [address] TUAN VENTURA. CONSENT IS ALREADY IN PATIENT.
[2021-12-24] MEDS: IV NS 0.9% 1,000 ML IV PRN (11:49)
[2021-12-24 12:00] VITALS: BP 153/78
--- NOTE | 2021-12-24 12:22 | NUR ---
RN NOTES BLOOD SUGAR IS 102, NO INSULIN COVERAGE NEEDED. NO S/SX OF OF HYPER/HYPOGLYCEMIA AT THE TIME. WILL CONTINUE TO MONITOR PATIENT ACCORDINGLY.
--- NOTE | 2021-12-24 16:52 | NUR ---
RN NOTE DR TUAN VENTURA MADE ROUNDS ON PATIENT, INFORM OF POTASSIUM 3.2 AND CREATININE 2.8, NO NEW ORDERS AT THE TIME. WILL CONTINUE TO MONITOR PATIENT ACCORDINGLY.
[2021-12-24] MEDS: INSULIN REGULAR, HUMAN 100 UNIT/ML 3 ML VIAL SQ PRN (18:24)
--- NOTE | 2021-12-24 18:58 | NUR ---
RN CLOSING NOTE PATIENT REMAINS IN STABLE CONDITION THROUGHOUT SHIFT. PATIENT ON BED RESTING A/O X1-2. WITH T-PIECE ON CONNECTED TO O2 WITH HUMIDIFIER AT 6LPM TOLERATING WELL SATING AT 99%. NO SOB NOTED. NOT IN DISTRESS. WITH 2 NEPHROSTOMY TUBE DRAINING CLEAR YELLOWISH URINE. ON NEPRO FEEDING AT 35ML/HR VIA G-TUBE TOLERATING WELL. ALL DUE MEDS GIVEN ORDERED. KEPT PATIENT CLEAN DRY AND COMFORTABLE. WOUND CARE RENDERED AND TOLERATED WELL. ALL NEEDS ATTENDED. WITH IV ACCESS AT LEFT UPPER ARM MIDLINE WITH IVF NS AT 90ML/HR INFUSING WELL. ALL SAFETY MEASURES IN PLACED. CALL LIGHT WITHIN REACH. BED ON LOWEST LOCKED POSITION, SIDERAILS UP X2, WILL ENDORSE TO ONCOMING NURSE FOR CONTINUITY OF CARE.
--- NOTE | 2021-12-24 19:10 | NUR ---
RN NOTE RECEIVED PATIENT IN BED RESTING ALERT ORIENTED X1-2 ON T-PIECE ON CONNECTED TO O2 WITH HUMIDIFIER AT 5L O2:98% ON G-TUBE FEEDING NEPRO @35CC/HR CHECKED PLACEMENT IN PLACE NO RESIDUAL NOTED,IV SITE IS ON RIGHT UPPER ARM MIDLINE INTACT PATENT ON IV HYDRATION NS @90CC/HR BILATERAL NEPHROSTOMY IN PLACE,RIGHT WRIST RESTRAIN IN PLACE WILL CHECK FOR SKIN BREAKDOWN AND CIRCULATION,SAFETY MEASURE IMPLEMENT BED IN LOW POSITION AND LOCKED,HEAD OF THE BED ELEVATED,CONTINUE TO MONITOR.
[2021-12-24 20:00] VITALS: BP 134/73
[2021-12-24] MEDS: TRAZODONE 50 MG TABLET GT SCH (21:08)
[2021-12-24] MEDS: ATORVASTATIN 40 MG TABLET GT SCH (21:09)
[2021-12-25] MEDS: ALBUTEROL FS 2.5 MG/3 ML VIAL.NEB NEB SCH ×4 (01:27→20:05)
[2021-12-25] MEDS: IV NS 0.9% 1,000 ML IV PRN ×2 (03:39→15:54)
[2021-12-25 04:00] VITALS: BP 137/57
[2021-12-25] MEDS: BLOOD SUGAR DIAGNOSTIC 1 EACH STRIP IN SCH ×4 (06:21→23:28)
[2021-12-25] MEDS: INSULIN REGULAR, HUMAN 100 UNIT/ML 3 ML VIAL SQ PRN ×3 (06:26→23:28)
--- NOTE | 2021-12-25 07:06 | NUR ---
RN NOTE PATIENT REMANS ON ALERT ORIENTED 1-2 ON T-PIECE ON CONNECTED TO O2 WITH HUMIDIFIER AT 5LTOLERATING WELL SATING AT98% ON G-TUBE FEEDING NEPRO 35CC/HR ALL DUE MEDS GIVEN MD ORDERED KEPT CLEAN AND DRY ALL THE TIME,NEPHROSTOMY IN PLACE BILATERAL KIDNEYS.HEAD OF THE BED ELEVATED ALL THE TIME ALL NEEDS MET.ENDORSE NEXT COMING SHIFT FOR CONTINUATION OF CARE.
--- NOTE | 2021-12-25 07:30 | NUR ---
RN OPENING NOTES RECEIVED PATIENT IN BED, A/O 1-2 ON T-PIECE WITH 5L OF O2 WITH HUMIDIFIER, SAT @ 98%. NO APPARENT DISTRESS NOTED. ON G-TUBE FEEDING NEPRO @ 35CC/HR. ANDREA MIDLINE INTACT RUNNING NS @ 90 ML/HR. BILATERAL NEPHROSTOMY BAGS IN PLACE. SAFETY MEASURES IN PLACE: BED IN LOWEST POSITION, HOB ELEVATED, WHEELS LOCKED, SIDE RAILS UP X2, CALL LIGHT WITHIN REACH. HOLDING PLAVIX MEDICATION PER MED REQUEST FOR FUTURE PROCEDURE. WILL CONTINUE TO MONITOR
[2021-12-25] MEDS: FLUDROCORTISONE 0.1 MG TABLET GT SCH (08:59)
[2021-12-25] MEDS: METOPROLOL TARTRATE 25 MG TABLET GT SCH ×2 (08:59→21:12)
[2021-12-25] MEDS: FERROUS SULFATE UDC 300 MG/5 ML UDC GT SCH (08:59)
[2021-12-25] MEDS: PANTOPRAZOLE 40 MG/PACK PACK GT SCH (09:00)
[2021-12-25] MEDS: TAMSULOSIN 0.4 MG CAP.SR.24H GT SCH ×2 (09:00→21:12)
[2021-12-25] MEDS: CHLORHEXIDINE GLUCONATE 15 ML UDC MM SCH ×2 (09:01→21:11)
[2021-12-25] MEDS: AMLODIPINE BESYLATE 2.5 MG TABLET GT SCH (09:01)
[2021-12-25] MEDS: LEVOFLOXACIN (250MG) 250 MG TABLET PO SCH (09:41)
[2021-12-25] MEDS: INSULIN GLARGINE, 100 UNIT/ML CARTRIDGE SQ SCH ×2 (10:13→21:33)
[2021-12-25] MEDS: MEROPENEM 500 MG in IV NS 0.9% 50 ML IV SCH ×2 (10:13→21:12)
[2021-12-25] MEDS: NEPRO 1,000 ML BOTTLE GT SCH (10:13)
[2021-12-25 12:00] VITALS: BP 158/80
--- NOTE | 2021-12-25 17:59 | NUR ---
RN NOTES PATIENT IS TOLERATING T-PIECE WITH 5L OF O2 SETTINGS. O2 SAT 98%. NO S/SX OF RESPIRATORY DISTRESS NOTED. BILATERAL NEPHROSTOMY BAGS INTACT AND DRAINING CLEAR YELLOW. R NEPHROSTOMY= 75 ML OUTPUT, L NEPHROSTOMY= 300 ML OUTPUT.
--- NOTE | 2021-12-25 18:50 | NUR ---
RN CLOSING NOTES PATIENT IN BED, A/O 1-2 ON T-PIECE WITH 5L OF O2 WITH HUMIDIFIER, SAT @ 98% THROUGHOUT SHIFT. ON G-TUBE FEEDING NEPRO @ 35CC/HR, TOLERATING WELL. ANDREA MIDLINE INTACT RUNNING NS @ 90 ML/HR. BILATERAL NEPHROSTOMY BAGS IN PLACE. SAFETY MEASURES IN PLACE: BED IN LOWEST POSITION, HOB ELEVATED, WHEELS LOCKED, SIDE RAILS UP X2, CALL LIGHT WITHIN REACH. PER DR DEL VALLE, CONTINUE FLUIDS FOR HYDRATION WITH NO NEED FOR HD AT THIS TIME, PATIENT IS TOLERATING WELL. WILL ENDORSE TO PHYSICIST ASTROPHYSICS NURSE FOR KI.
--- NOTE | 2021-12-25 19:45 | NUR ---
RN NOTE PT RECEIVED IN BED. PT IS ON T-PIECE AT 5L SHOWING NO S/S OF RESP DISTRESS. BREATHING EVEN AND UNLABORED. PT IS A/OX1. BILATERAL NEPHRO TUBE NOTED. RIGHT HAND SOFT WRIST RESTRAINT NOTED. ALL SAFETY PROTOCOLS INITIALED PER PROTOCOL. GT INTACT AND PATENT RUNNING NEPRO NEPRO AT 35 CC/HR. IV ACCESS NOTED ON LEFT UPPER ARM ML. 0.9% NS RUNNING AT 90 CC/HR. ALL SAFETY MEASURES IMPLEMENTED. HOB ELEVATED. BED ALARM ON. BED LOCKED AND IN LOWEST POSITION. WILL CONTINUE TO MONITOR AND ASSESS FOR ANY CHANGES DURING SHIFT.
[2021-12-25 20:00] VITALS: BP 167/79
[2021-12-25] MEDS: TRAZODONE 50 MG TABLET GT SCH (21:11)
[2021-12-25] MEDS: ATORVASTATIN 40 MG TABLET GT SCH (21:15)
--- NOTE | 2021-12-25 23:29 | NUR ---
RN NOTE BS 105. NO INSULIN COVERAGE REQUIRED PER SLIDING SCALE.
[2021-12-26] MEDS: ALBUTEROL FS 2.5 MG/3 ML VIAL.NEB NEB SCH ×4 (01:43→20:32)
[2021-12-26] MEDS: IV NS 0.9% 1,000 ML IV PRN ×2 (03:59→18:05)
[2021-12-26 04:00] VITALS: BP 106/52
--- NOTE | 2021-12-26 05:48 | NUR ---
RN NOTE BS 131. WILL ADMINISTER 2 UNITS OF INSULIN PER SLIDING SCALE.
[2021-12-26] MEDS: INSULIN REGULAR, HUMAN 100 UNIT/ML 3 ML VIAL SQ PRN ×2 (05:54→23:37)
[2021-12-26] MEDS: BLOOD SUGAR DIAGNOSTIC 1 EACH STRIP IN SCH ×4 (05:55→23:36)
--- NOTE | 2021-12-26 06:42 | NUR ---
RN NOTE NO CHANGES IN PT CONDITION DURING SHIFT. PT IS ON T-PIECE AT 5L SHOWING NO S/S OF RESP DISTRESS. BREATHING EVEN AND UNLABORED. PT IS A/OX1. BILATERAL NEPHRO TUBE NOTED. RIGHT HAND SOFT WRIST RESTRAINT NOTED. ALL SAFETY PROTOCOLS INITIALED PER PROTOCOL. GT INTACT AND PATENT RUNNING NEPRO NEPRO AT 35 CC/HR. IV ACCESS NOTED ON LEFT UPPER ARM ML. 0.9% NS RUNNING AT 90 CC/HR. ALL SAFETY MEASURES IMPLEMENTED. ALL DUE MEDS GIVEN ORDERED. PT KEPT CLEAN AND COMFORTABLE. HOB ELEVATED. BED ALARM ON. BED LOCKED AND IN LOWEST POSITION. WILL ENDORSE TO MORNING SHIFT RN FOR KI.
[2021-12-26 06:51] LABS: BASOPHILS % (AUTO) 0.4 % (0.0-2.0); EOSINOPHILS % (AUTO) 2.3 % (0.0-6.0); HEMATOCRIT 28 % (33-45); HEMOGLOBIN 8.8 g/dL (11.5-14.8); LYMPHOCYTES # (AUTO) 0.9 K/uL (0.8-4.8); MEAN CORPUSCULAR HGB CONC 32 g/dl (31.0-36.0); MEAN CORPUSCULAR VOLUME 85 fL (82-100); MONOCYTES # (AUTO) 0.6 K/uL (0.1-1.30); MONOCYTES % (AUTO) 7.1 % (2.0-12.0); NEUTROPHILS # (AUTO) 6.5 K/uL (1.8-8.9); NEUTROPHILS % (AUTO) 79.2 % (43.0-81.0); PLATELET COUNT (AUTO) 484 K/uL (150-450); RED BLOOD CELL COUNT(AUTO) 3.23 MIL/uL (4.0-5.2); WHITE BLOOD COUNT (AUTO) 8.2 K/uL (4.3-11.0)
--- NOTE | 2021-12-26 07:36 | NUR ---
MS RN OPENING NOTES RECEIVED PATIENT IN BED, A/O 1-2 ON T-PIECE WITH 5L OF O2 WITH HUMIDIFIER, SAT @ 98%. NOT IN ANY DISTRESS NOTED. ON G-TUBE FEEDING NEPRO @ 35CC/HR. ANDREA MIDLINE INTACT RUNNING NS @ 90 ML/HR. BILATERAL NEPHROSTOMY BAGS IN PLACE. SAFETY MEASURES IN PLACE: BED IN LOW AND LOCKED POSITION, HOB ELEVATED,, SIDE RAILS UP X2, CALL LIGHT WITHIN REACH. RIGHT HAND SOFT RESTRAINT CHECKED ,SKIN INTACT . WILL CONTINUE TO MONITOR
[2021-12-26 07:50] LABS: CALCIUM, SERUM 8.9 mg/dL (8.5-10.1); CREATININE 2.6 mg/dL (0.6-1.3); POTASSIUM 3.5 mmol/L (3.5-5.1)
[2021-12-26 08:00] VITALS: BP 168/74
[2021-12-26] MEDS: CHLORHEXIDINE GLUCONATE 15 ML UDC MM SCH ×2 (08:45→21:30)
[2021-12-26] MEDS: FERROUS SULFATE UDC 300 MG/5 ML UDC GT SCH (08:45)
[2021-12-26] MEDS: PANTOPRAZOLE 40 MG/PACK PACK GT SCH (08:46)
[2021-12-26] MEDS: FLUDROCORTISONE 0.1 MG TABLET GT SCH (08:46)
[2021-12-26] MEDS: METOPROLOL TARTRATE 25 MG TABLET GT SCH ×2 (08:46→21:32)
[2021-12-26] MEDS: TAMSULOSIN 0.4 MG CAP.SR.24H GT SCH ×2 (08:47→21:33)
[2021-12-26] MEDS: AMLODIPINE BESYLATE 2.5 MG TABLET GT SCH (08:47)
[2021-12-26] MEDS: INSULIN GLARGINE, 100 UNIT/ML CARTRIDGE SQ SCH ×2 (08:54→21:39)
[2021-12-26] MEDS: MEROPENEM 500 MG in IV NS 0.9% 50 ML IV SCH ×2 (09:58→21:31)
[2021-12-26] MEDS: LEVOFLOXACIN (250MG) 250 MG TABLET PO SCH (09:59)
[2021-12-26 16:00] VITALS: BP 144/71
--- NOTE | 2021-12-26 18:41 | NUR ---
MS RN CLOSING NOTES PATIENT REMAINS IN STABLE CONDITION THROUGHOUT SHIFT. PATIENT ON BED RESTING A/O X1-2. WITH T-PIECE ON CONNECTED TO O2 WITH HUMIDIFIER AT 5LPM TOLERATING WELL SATING AT 99%. NO SOB NOTED. NOT IN DISTRESS. WITH RIGHT NEPHROSTOMY TUBE DRAINING CLEAR YELLOWISH URINE. LEFT NEPHROSTOMY NOT DRAINING. ON NEPRO FEEDING AT 35ML/HR VIA G-TUBE TOLERATING WELL. ALL DUE MEDS GIVEN ORDERED. KEPT PATIENT CLEAN DRY AND COMFORTABLE. WOUND CARE RENDERED AND TOLERATED WELL. ALL NEEDS ATTENDED. WITH IV ACCESS AT LEFT UPPER ARM MIDLINE WITH IVF NS AT 90ML/HR INFUSING WELL. ALL SAFETY MEASURES IN PLACED. CALL LIGHT WITHIN REACH. BED ON LOWEST LOCKED POSITION, SIDERAILS UP X2, AND RIGHT WRIST SOFT RESTRAINT.SKIN WARM AND INTACT.WILL ENDORSE TO ONCOMING NURSE FOR CONTINUITY OF CARE.
[2021-12-26 20:00] VITALS: BP 144/70
[2021-12-26] MEDS: TRAZODONE 50 MG TABLET GT SCH (21:32)
[2021-12-26] MEDS: ATORVASTATIN 40 MG TABLET GT SCH (21:32)
[2021-12-26 23:07] VITALS: BP 144/70
[2021-12-26] MEDS: NEPRO 1,000 ML BOTTLE GT SCH (23:39)
[2021-12-27] MEDS: ALBUTEROL FS 2.5 MG/3 ML VIAL.NEB NEB SCH ×4 (01:52→20:04)
[2021-12-27 04:00] VITALS: BP 137/74
[2021-12-27] MEDS: INSULIN REGULAR, HUMAN 100 UNIT/ML 3 ML VIAL SQ PRN ×2 (05:13→12:02)
[2021-12-27] MEDS: BLOOD SUGAR DIAGNOSTIC 1 EACH STRIP IN SCH ×4 (05:13→23:53)
[2021-12-27] MEDS: IV NS 0.9% 1,000 ML IV PRN ×2 (07:35→21:31)
--- NOTE | 2021-12-27 07:46 | NUR ---
RN OPENING NOTE PATIENT RECEIVED IN BED, RESTING. PATIENT WITH TPIECE AND 5L O2 AND NO SIGNS OF LABORED BREATHING AT THIS TIME. BILATERAL NEPRO TUBES, RIGHT TUBE NON PATENT, LEFT TUBE DRAINING CLEAR URINE. G TUBE IN PLACE RUNNING NEPRO AT 35 CC/HR. LEFT UA MIDLINE IN PLACE RUNNING NS AT 90CC/HR. NO SIGNS OF ACUTE DISTRESS NOTED AT THIS TIME, BED LOCKED AND IN LOWEST POSITION, CALL LIGHT WITHIN REACH, 2 SIDE RAILS UP. WILL CONTINUE TO MONITOR.
[2021-12-27 08:50] LABS: CALCIUM, SERUM 9.6 mg/dL (8.5-10.1); CREATININE 2.5 mg/dL (0.6-1.3); POTASSIUM 3.3 mmol/L (3.5-5.1)
[2021-12-27] MEDS: PANTOPRAZOLE 40 MG/PACK PACK GT SCH (09:33)
[2021-12-27] MEDS: CHLORHEXIDINE GLUCONATE 15 ML UDC MM SCH ×2 (09:33→21:30)
[2021-12-27] MEDS: MEROPENEM 500 MG in IV NS 0.9% 50 ML IV SCH ×2 (09:33→21:30)
[2021-12-27] MEDS: METOPROLOL TARTRATE 25 MG TABLET GT SCH ×2 (09:33→21:30)
[2021-12-27] MEDS: FLUDROCORTISONE 0.1 MG TABLET GT SCH (09:34)
[2021-12-27] MEDS: AMLODIPINE BESYLATE 2.5 MG TABLET GT SCH (09:34)
[2021-12-27] MEDS: LEVOFLOXACIN (250MG) 250 MG TABLET PO SCH (09:34)
[2021-12-27] MEDS: TAMSULOSIN 0.4 MG CAP.SR.24H GT SCH ×2 (09:34→21:30)
[2021-12-27] MEDS: INSULIN GLARGINE, 100 UNIT/ML CARTRIDGE SQ SCH ×2 (09:36→21:00)
[2021-12-27 12:00] VITALS: BP 128/89
[2021-12-27 16:00] VITALS: BP 158/87
[2021-12-27] MEDS: NEPRO 1,000 ML BOTTLE GT SCH (16:34)
--- NOTE | 2021-12-27 18:43 | NUR ---
RN CLOSING NOTE PATIENT REMAINS IN BED, RESTING. PATIENT WITH TPIECE AND 5L O2 AND NO SIGNS OF LABORED BREATHING AT THIS TIME. BILATERAL NEPRO TUBES, RIGHT TUBE NON PATENT, LEFT TUBE DRAINING CLEAR URINE 1,000CC OUTPUT DURING DAY SHIFT. G TUBE IN PLACE RUNNING NEPRO AT 35 CC/HR. LEFT UA MIDLINE IN PLACE RUNNING NS AT 90CC/HR. NO SIGNS OF ACUTE DISTRESS NOTED AT THIS TIME, BED LOCKED AND IN LOWEST POSITION, CALL LIGHT WITHIN REACH, 2 SIDE RAILS UP. WILL ENDORSE TO ASSISTANT AUTO CENTER MANAGER NURSE.
--- NOTE | 2021-12-27 19:30 | NUR ---
RN OPENING NOTE RECEIVED PT AWAKE IN BED. PATIENT WITH TPIECE ON 5 LPM. NO SOB OR S/S OF RESPIRATORY DISTRESS. BILATERAL NEPRO TUBES, RIGHT TUBE NON PATENT, LEFT TUBE DRAINING CLEAR URINE. G TUBE IN PLACE RUNNING NEPRO AT 35 CC/HR. IV ACCESS ANDREA MIDLINE RUNNING NS AT 90CC/HR. SAFETY PRECAUTIONS IN PLACE. BED IN LOWEST LOCKED POSITION, HOB ELEVATED, SIDE RAILS UP X2, AND CALL LIGHT AND TABLE WITHIN REACH. WILL CONTINUE WITH PLAN OF CARE.
[2021-12-27 20:00] VITALS: BP 140/94
[2021-12-27] MEDS: TRAZODONE 50 MG TABLET GT SCH (21:30)
[2021-12-27] MEDS: ATORVASTATIN 40 MG TABLET GT SCH (21:30)
--- NOTE | 2021-12-27 21:32 | NUR ---
RN NOTE STEVE HELD FOR BLOOD SUGAR OF 73. CHARGE NURSE AUTUMN CHANCE. WILL CONTINUE WITH PLAN OF CARE.
[2021-12-28] MEDS: ALBUTEROL FS 2.5 MG/3 ML VIAL.NEB NEB SCH ×4 (02:17→19:48)
[2021-12-28 04:00] VITALS: BP 154/79
[2021-12-28] MEDS: BLOOD SUGAR DIAGNOSTIC 1 EACH STRIP IN SCH ×3 (05:21→17:31)
--- NOTE | 2021-12-28 06:41 | NUR ---
RN CLOSING NOTE PT AWAKE IN BED. PATIENT WITH TPIECE ON 5 LPM, O2 SAT @ 100%. NO SOB OR S/S OF RESPIRATORY DISTRESS. BILATERAL NEPHRO TUBES, RIGHT TUBE NON PATENT, LEFT TUBE DRAINING CLEAR URINE, 800 ML DRAINED THIS SHIFT. G TUBE IN PLACE RUNNING NEPRO AT 35 CC/HR, INTACT AND PATENT. IV ACCESS ANDREA MIDLINE RUNNING NS AT 90CC/HR. ALL NEEDS MET AT THIS TIME. SAFETY PRECAUTIONS IN PLACE AT ALL TIMES. BED IN LOWEST LOCKED POSITION, HOB ELEVATED, SIDE RAILS UP X2, AND CALL LIGHT AND TABLE WITHIN REACH. WILL ENDORSE TO ONCOMING SHIFT FOR KI.
--- NOTE | 2021-12-28 07:30 | NUR ---
RN OPENING NOTE RECEIVED PATIENT IN BED RESTING AND A/O X1-2. WITH T-PIECE ON CONNECTED TO O2 WITH HUMIDIFIER AT 5LPM TOLERATING WELL. NO SOB NOTED. NOT IN DISTRESS. WITH BILATERAL NEPHROSTOMY TUBES, RIGHT TUBE NON PATENT, LEFT TUBE DRAINING CLEAR URINE. ON NEPRO FEEDING AT 35ML/HR VIA G-TUBE TOLERATING WELL. WITH IV ACCESS AT LEFT UPPER ARM MIDLINE WITH IVF NS AT 90ML/HR INFUSING WELL. WITH RIGHT WRISTS SOFT RESTRAINTS ON, NO SKIN INTEGRITY COMPROMISE, NO CIRCULATION COMPROMISE. WILL REASSESS ACCORDINGLY. ALL SAFETY MEASURES IN PLACED. CALL LIGHT WITHIN REACH. BED ON LOWEST LOCKED POSITION, SIDERAILS UP X2, WILL CONTINUE TO MONITOR PATIENT ACCORDINGLY.
[2021-12-28] MEDS: FERROUS SULFATE UDC 300 MG/5 ML UDC GT SCH (09:24)
[2021-12-28] MEDS: PANTOPRAZOLE 40 MG/PACK PACK GT SCH (09:25)
[2021-12-28] MEDS: FLUDROCORTISONE 0.1 MG TABLET GT SCH (09:25)
[2021-12-28] MEDS: METOPROLOL TARTRATE 25 MG TABLET GT SCH ×2 (09:25→21:48)
[2021-12-28] MEDS: TAMSULOSIN 0.4 MG CAP.SR.24H GT SCH ×2 (09:25→21:48)
[2021-12-28] MEDS: MEROPENEM 500 MG in IV NS 0.9% 50 ML IV SCH ×2 (09:26→22:18)
[2021-12-28] MEDS: LEVOFLOXACIN (250MG) 250 MG TABLET PO SCH (09:26)
[2021-12-28] MEDS: INSULIN GLARGINE, 100 UNIT/ML CARTRIDGE SQ SCH ×2 (09:27→21:00)
[2021-12-28] MEDS: CHLORHEXIDINE GLUCONATE 15 ML UDC MM SCH ×2 (09:29→21:48)
[2021-12-28] MEDS: AMLODIPINE BESYLATE 2.5 MG TABLET GT SCH (09:29)
[2021-12-28] MEDS: IV NS 0.9% 1,000 ML IV PRN (09:37)
[2021-12-28 11:14] LABS: CREATININE 2.3 mg/dL (0.6-1.3)
[2021-12-28 12:00] VITALS: BP 142/71
[2021-12-28] MEDS: INSULIN REGULAR, HUMAN 100 UNIT/ML 3 ML VIAL SQ PRN ×2 (12:06→17:32)
[2021-12-28] MEDS: POTASSIUM CL. PREMIX PERIPHER. 50 ML IV SCH ×5 (15:14→19:28)
[2021-12-28] MEDS: NEPRO 1,000 ML BOTTLE GT SCH (17:26)
--- NOTE | 2021-12-28 19:10 | NUR ---
RECEIVED PATIENT ON BED, AWAKE, VERBALLY RESPONSIVE, A/O X 1-2. ON T-PIECE @ 5LPM SATING AT 100%. RESPIRATORY EVEN AND UNLABORED, NO SOB NOTED. REMAIN AFEBRILE. NO S/S OF DISTRESS NOTED. NOTED WITH ANDREA MID LINE , INTACT PATENT, FLUSHED WITH NS. NO INFILTRATION NOTED AT SITE, RUNNING WITH NS 1L @ 90ML/HR. G-TUBE INPLACED, INTACT. VERIFIED PLACEMENT VIA AUSCULTATION, FLUSHED WITH WATER. NO RESIDUAL NOTED UPON ASPIRATION, RUNNING WITH NEPHRO @ 36 ML/HR X 24HRS. KEEP HEAD OF BED ELEVATED. NOTED WITH BILATERAL NEPHROSTOMY, RIGHT SIDE NEPHROSTOMY NOT DRAINING. SAFETY MEASURE PROVIDED. BED IN LOWEST POSITION, LOCKED. BED ALARM ARMED. CONTINUE TO MONITOR. Addendum: 12/29/21 at 0443 by TRACIE HANNON RN RN OPENING NOTES
--- NOTE | 2021-12-28 19:52 | NUR ---
RN CLOSING NOTES PATIENT REMAINS IN STABLE CONDITION THROUGHOUT SHIFT. PATIENT IN BED RESTING AND A/O X1-2. WITH T-PIECE ON CONNECTED TO O2 WITH HUMIDIFIER AT 5LPM TOLERATING WELL. NO SOB NOTED. NOT IN DISTRESS. WITH BILATERAL NEPHROSTOMY TUBES, RIGHT TUBE NON PATENT, LEFT TUBE DRAINING CLEAR URINE. ON NEPRO FEEDING AT 35ML/HR VIA G-TUBE TOLERATING WELL. WITH IV ACCESS AT LEFT UPPER ARM MIDLINE WITH IVF NS AT 90ML/HR INFUSING WELL. ALL DUE MEDS GIVEN ORDERED. ALL NEEDS ATTENDED. KEPT PATIENT CLEAN DRY AND COMFORTABLE. ALL SAFETY MEASURES IN PLACED. CALL LIGHT WITHIN REACH. BED ON LOWEST LOCKED POSITION, SIDERAILS UP X2. ENDORSED TO ONCOMING NURSE FOR CONTINUITY OF CARE.
[2021-12-28 20:00] VITALS: BP 159/83
[2021-12-28] MEDS: TRAZODONE 50 MG TABLET GT SCH (21:47)
[2021-12-28] MEDS: ATORVASTATIN 40 MG TABLET GT SCH (21:48)
--- NOTE | 2021-12-28 21:54 | NUR ---
RN NOTES INSULIN LANTUS NOT GIVEN BLOOD SUGAR 99mg/dL, CHARGE NURSE MADE AWARE.
[2021-12-29] MEDS: BLOOD SUGAR DIAGNOSTIC 1 EACH STRIP IN SCH ×4 (01:16→18:01)
[2021-12-29] MEDS: INSULIN REGULAR, HUMAN 100 UNIT/ML 3 ML VIAL SQ PRN ×2 (01:17→06:15)
--- NOTE | 2021-12-29 01:18 | NUR ---
RN NOTES BLOOD SUGAR 103mg/dL, NO INSULIN COVERAGE PER SLIDING SCALE
[2021-12-29] MEDS: ALBUTEROL FS 2.5 MG/3 ML VIAL.NEB NEB SCH ×4 (02:04→20:39)
[2021-12-29] MEDS: IV NS 0.9% 1,000 ML IV PRN ×2 (02:33→14:34)
[2021-12-29 04:00] VITALS: BP 149/88
--- NOTE | 2021-12-29 06:16 | NUR ---
RN NOTES BLOOD SUGAR 103mg/dL, NO INSULIN COVERAGE PER SLIDING SCALE
--- NOTE | 2021-12-29 07:22 | NUR ---
RN CLOSING NOTES PATIENT REMAIN STABLE THROUGH OUT THE SHIFT. RESPIRATORY EVEN AND UNLABORED, NO SOB NOTED. REMAIN AFEBRILE. NO S/S OF DISTRESS NOTED. RUNNING WITH NS 1L @ 90ML/HR. RUNNING WITH NEPHRO @ 35 ML/HR X 24HRS. HEAD OF BED KEPT ELEVATED. NOTED WITH BILATERAL NEPHROSTOMY, RIGHT SIDE NEPHROSTOMY NOT DRAINING. ALL DUE MEDS GIVEN ORDERED. SAFETY MEASURE PROVIDED. BED IN LOWEST POSITION, LOCKED. BED ALARM ARMED. ENDORSED TO NEXT SHIFT.
[2021-12-29 07:57] LABS: CALCIUM, SERUM 8.8 mg/dL (8.5-10.1); CREATININE 2.3 mg/dL (0.6-1.3); POTASSIUM 3.9 mmol/L (3.5-5.1)
--- NOTE | 2021-12-29 08:21 | NUR ---
MS RN OPENING NOTE Patient in bed, asleep. A/O x 1-2. On O2 at 5LPM via T-piece, no SOB or s/s of distress noted. IV access on ANDREA midline infusing NS at 90 ml/hr. G-tube in place running Nepro at 35 ml/hr. Bilateral nephrostomy tubes in place. Safety precautions in place: bed inlow, locked position; siderails up x 2; call light within reach. Will continue to monitor.
[2021-12-29] MEDS: INSULIN GLARGINE, 100 UNIT/ML CARTRIDGE SQ SCH ×2 (09:00→21:00)
[2021-12-29] MEDS: METOPROLOL TARTRATE 25 MG TABLET GT SCH ×2 (09:24→21:07)
[2021-12-29] MEDS: LEVOFLOXACIN (250MG) 250 MG TABLET PO SCH (09:24)
[2021-12-29] MEDS: FERROUS SULFATE UDC 300 MG/5 ML UDC GT SCH (09:24)
[2021-12-29] MEDS: CHLORHEXIDINE GLUCONATE 15 ML UDC MM SCH ×2 (09:24→21:07)
[2021-12-29] MEDS: TAMSULOSIN 0.4 MG CAP.SR.24H GT SCH ×2 (09:25→21:05)
[2021-12-29] MEDS: FLUDROCORTISONE 0.1 MG TABLET GT SCH (09:25)
[2021-12-29] MEDS: PANTOPRAZOLE 40 MG/PACK PACK GT SCH (09:25)
[2021-12-29] MEDS: AMLODIPINE BESYLATE 2.5 MG TABLET GT SCH (09:25)
[2021-12-29] MEDS: MEROPENEM 500 MG in IV NS 0.9% 50 ML IV SCH ×2 (09:58→21:28)
[2021-12-29 12:28] VITALS: BP 163/82
[2021-12-29 16:21] VITALS: BP 159/84
--- NOTE | 2021-12-29 19:30 | NUR ---
RN OPENING NOTES, RECEIVED PT IN BED AWAKE, A/O 1-2, RESPONSIVE TO PAINFUL STIMULI. ON O2 AT 5LPM VIA T-PIECE AND PT TOLERATED WELL. IV ACCESS ON ANDREA MIDLINE WITH RUNNING NS 90CC/HR. GTUBE FEEDING AT 35CC/HR. BILATERAL NEPHROSTOMY TUBES ON PLACE. SOFT RESTRAINT ON RT WRIST. NO FACIAL GRIMACING NOTED. NO ACUTE DISTRESS. ALL SAFETY MEASURES IN PLACE. SIDE RAILS UP X3, PLACE CALL LIGHT WITH IN REACH. WILL CONTINUE TO MONITOR
--- NOTE | 2021-12-29 19:46 | NUR ---
MS RN CLOSING NOTE Patient in bed, asleep. A/O x 1-2. On O2 at 5LPM via T-piece, no SOB or s/s of distress noted. IV access on ANDREA midline infusing NS at 90 ml/hr. G-tube in place running Nepro at 35 ml/hr. Bilateral nephrostomy tubes in place, Right tube draining yellow urine with an output of 750 cc. Patient kept clean and dry. Due meds given. Safety precautions in place: bed in low, locked position; siderails up x 2; call light within reach. Will endorse to rn night nurse for KI.
[2021-12-29 20:00] VITALS: BP 163/79
[2021-12-29] MEDS: TRAZODONE 50 MG TABLET GT SCH (21:07)
[2021-12-29] MEDS: ATORVASTATIN 40 MG TABLET GT SCH (21:07)
--- NOTE | 2021-12-29 21:29 | NUR ---
RN NOTES: BLOOD SUGAR 125. LANTUS ON HOLD, NPO AFTER MIDNIGHT.
[2021-12-30] MEDS: BLOOD SUGAR DIAGNOSTIC 1 EACH STRIP IN SCH ×4 (00:12→18:05)
--- NOTE | 2021-12-30 00:13 | NUR ---
RN NOTES: PT STARTED NPO AFTER MIDNIGHT. WILL HAVE REPLACEMENT OF NEPHROSTOMY TUBE IN THE MORNING. TURNED OFF GTUBE FEEDING.
--- NOTE | 2021-12-30 00:16 | NUR ---
RN NOTES: BLOOD SUGAR 110. NO COVERAGE NEEDED. NO S/S OF HYPER/HYPOGLYCEMIA. WILL CONTINUE TO MONITOR
[2021-12-30] MEDS: ALBUTEROL FS 2.5 MG/3 ML VIAL.NEB NEB SCH ×4 (01:54→19:49)
[2021-12-30 04:00] VITALS: BP 161/88
[2021-12-30] MEDS: IV NS 0.9% 1,000 ML IV PRN ×2 (04:15→20:29)
--- NOTE | 2021-12-30 06:38 | NUR ---
RN CLOSING NOTES, PT IN BED AWAKE, A/O 1-2, RESPONSIVE TO PAINFUL STIMULI. ON O2 AT 5LPM VIA T-PIECE, O2 99% AND PT TOLERATED WELL. IV ACCESS ON ANDREA MIDLINE WITH RUNNING NS 90CC/HR. GTUBE FEEDING AT 35CC/HR. BILATERAL NEPHROSTOMY TUBES ON PLACE. SOFT RESTRAINT ON RT WRIST. NO FACIAL GRIMACING NOTED. NO ACUTE DISTRESS. ALL DUE MEDS GIVEN ORDERED. ALL SAFETY MEASURES IN PLACE. SIDE RAILS UP X3, PLACE CALL LIGHT WITH IN REACH. WILL ENDORSE TO MORNING SHIFT NURSE.
[2021-12-30 06:57] LABS: BASOPHILS # (AUTO) 0.1 K/uL (0.0-0.2); BASOPHILS % (AUTO) 0.6 % (0.0-2.0); EOSINOPHILS % (AUTO) 3.4 % (0.0-6.0); HEMATOCRIT 26 % (33-45); HEMOGLOBIN 8.4 g/dL (11.5-14.8); LYMPHOCYTES # (AUTO) 1.4 K/uL (0.8-4.8); MEAN CORPUSCULAR HGB CONC 33 g/dl (31.0-36.0); MEAN CORPUSCULAR VOLUME 84 fL (82-100); MONOCYTES # (AUTO) 0.6 K/uL (0.1-1.30); MONOCYTES % (AUTO) 6.5 % (2.0-12.0); NEUTROPHILS # (AUTO) 7.1 K/uL (1.8-8.9); NEUTROPHILS % (AUTO) 74.5 % (43.0-81.0); PLATELET COUNT (AUTO) 398 K/uL (150-450); RED BLOOD CELL COUNT(AUTO) 3.09 MIL/uL (4.0-5.2); WHITE BLOOD COUNT (AUTO) 9.6 K/uL (4.3-11.0)
--- NOTE | 2021-12-30 07:40 | NUR ---
RN OPENING NOTES RECEIVED PATIENT IN BED, AWAKE, ALERT/ORIENTED X 1-2. ON T-PIECE @ 5LPM SATING AT 100%. BREATHING EVEN AND UNLABORED, NO SOB NOTED OR ANY ACUTE DISTRESS NOTED. NOTED WITH ANDREA MID LINE , INTACT PATENT, FLUSHED WITH NS. NO INFILTRATION NOTED AT SITE, INFUSING NS @ 90ML/HR. G-TUBE IN PLACED, INTACT. VERIFIED PLACEMENT VIA AUSCULTATION, NO RESIDUAL NOTED UPON ASPIRATION, GT FEEDING ON HOLD, PATIENT ON NPO DUE TO PROCEDURE. KEEP HEAD OF BED ELEVATED. NOTED WITH BILATERAL NEPHROSTOMY, RIGHT SIDE NEPHROSTOMY NOT DRAINING. SAFETY MEASURE IN PLACE. BED IN LOWEST POSITION, LOCKED. BED ALARM ON. WILL CONTINUE TO MONITOR THROUGHOUT SHIFT.
[2021-12-30 07:59] LABS: CREATININE 2.3 mg/dL (0.6-1.3)
[2021-12-30] MEDS: INSULIN GLARGINE, 100 UNIT/ML CARTRIDGE SQ SCH ×2 (08:56→21:00)
--- NOTE | 2021-12-30 08:56 | NUR ---
RN NOTES PATIENT IS NPO, GTF ON HOLD DUE TO PROCEDURE OF NEPHROSTOMY REPLACEMENT. WILL HOLD LANTUS.
[2021-12-30] MEDS: CHLORHEXIDINE GLUCONATE 15 ML UDC MM SCH ×2 (09:00→21:43)
[2021-12-30] MEDS: PANTOPRAZOLE 40 MG/PACK PACK GT SCH (09:01)
[2021-12-30] MEDS: FLUDROCORTISONE 0.1 MG TABLET GT SCH (09:01)
[2021-12-30] MEDS: TAMSULOSIN 0.4 MG CAP.SR.24H GT SCH ×2 (09:01→21:44)
[2021-12-30] MEDS: METOPROLOL TARTRATE 25 MG TABLET GT SCH ×2 (09:01→21:44)
[2021-12-30] MEDS: AMLODIPINE BESYLATE 2.5 MG TABLET GT SCH (09:01)
[2021-12-30] MEDS: LEVOFLOXACIN (250MG) 250 MG TABLET PO SCH (09:18)
[2021-12-30] MEDS: MEROPENEM 500 MG in IV NS 0.9% 50 ML IV SCH ×2 (09:18→21:46)
--- NOTE | 2021-12-30 11:58 | NUR ---
RN NOTES BLOOD SUGAR IS 87 NO INSULIN COVERAGE NEEDED. NO SIGNS OF HYPER/HYPOGLYCEMIA NOTED AT THE TIME. WILL CONTINUE TO MONITOR.
[2021-12-30 12:00] VITALS: BP 136/74
--- NOTE | 2021-12-30 16:30 | NUR ---
RN NOTES SPOKE TO VERONICA FROM RADIOLOGY REGARDING NEPHROSTOMY REPLACEMENT PROCEDURE SCHEDULED TODAY. PER VERONICA WILL NEED TO RESCHEDULE FOR TOMORROW. INFORM DR. TUAN VENTURA IF CAN RESUME GT FEEDING THEN NPO AT MIDNIGHT, OKAY PER .
--- NOTE | 2021-12-30 18:07 | NUR ---
RN NOTES BLOOD SUGAR IS 76, NO INSULIN COVERAGE NEEDED. NO SIGNS OF HYPER/HYPOGLYCEMIA AT THE TIME. WILL CONTINUE TO MONITOR
--- NOTE | 2021-12-30 19:23 | NUR ---
RN CLOSING NOTES PATIENT REMAINS IN STABLE CONDITION THROUGHOUT SHIFT. PATIENT IN BED, AWAKE, ALERT/ORIENTED X 1-2. ON T-PIECE @ 5LPM SATING AT 100%. BREATHING EVEN AND UNLABORED, NO SOB NOTED OR ANY ACUTE DISTRESS NOTED. NOTED WITH ANDREA MID LINE , INTACT PATENT, FLUSHED WITH NS. NO INFILTRATION NOTED AT SITE, INFUSING NS @ 90ML/HR. ALL DUE MEDS GIVEN ORDERED. ALL NEEDS ATTENDED. WOUND CARE RENDERED, TOLERATED WELL. G-TUBE IN PLACED, INTACT. VERIFIED PLACEMENT VIA AUSCULTATION, NO RESIDUAL NOTED UPON ASPIRATION, GT FEEDING RUNNING AT 35 ML/HR. KEEP HEAD OF BED ELEVATED. NOTED WITH BILATERAL NEPHROSTOMY, RIGHT SIDE NEPHROSTOMY NOT DRAINING. SAFETY MEASURE IN PLACE. BED IN LOWEST POSITION, LOCKED. BED ALARM ON. ENDORSED TO ONCOMING NURSE FOR CONTINUITY OF CARE.
--- NOTE | 2021-12-30 19:44 | NUR ---
MS RN OPENING NOTES: RECEIVED PATIENT AWAKE IN BED, BED IN LOW POSITION CALL LIGHTS WITHIN REACH, NO COMPLAIN OF PAIN AND DISCOMFORT AT THIS TIME, PATIENT IS A/O X1-2 ON RIGHT WRIST RESTRAINT, ON G TUBE FEEDING OF NEPRO @35 ML PER HOUR INFUSING WELL, WITH ANDREA MLWITH ONGOING NSS@90CC PER HOUR, WITH BILATERAL NEPROSTOMY TUBE, RIGHT NEPROSTOMY WAS NOT WORKING NPO POST MIDNIGHT FOR RIGHT NEPROSTOMY WORK OUT, PATIENTKETP CLEAN AND DRY ALL NEEDS MET WILL CONTINUE TO MONITOR.
[2021-12-30 20:00] VITALS: BP 154/84
[2021-12-30] MEDS: TRAZODONE 50 MG TABLET GT SCH (21:45)
[2021-12-30] MEDS: ATORVASTATIN 40 MG TABLET GT SCH (21:45)
--- NOTE | 2021-12-30 22:05 | NUR ---
RN NOTES: BS-76 LONG ACTING INSULIN LANTUS GLARGINE- NOT GIVEN PATIENT IS NPO POST MIDNIGHT DUE TO BILATERAL NEPHROSTOMY REPLACEMENT TOMORROW
--- NOTE | 2021-12-31 00:16 | NUR ---
RN NOTES: BS-90 NO INSULIN GIVEN PER SLIDING SCALE PATIENT ON NPO POST MIDNIGHT DUE TO NEPHROSTOMY PLACEMENT SCHEDULE IN AM
[2021-12-31] MEDS: ALBUTEROL FS 2.5 MG/3 ML VIAL.NEB NEB SCH ×4 (01:26→19:30)
[2021-12-31] MEDS ORDERED: IV D5/ 0.9% NACL 1,000 ML IV ONE (01:30)
[2021-12-31 05:39] VITALS: BP 131/71
[2021-12-31] MEDS: BLOOD SUGAR DIAGNOSTIC 1 EACH STRIP IN SCH ×5 (06:00→23:03)
[2021-12-31 06:08] LABS: BASOPHILS # (AUTO) 0.1 K/uL (0.0-0.2); BASOPHILS % (AUTO) 1.2 % (0.0-2.0); EOSINOPHILS % (AUTO) 7.6 % (0.0-6.0); HEMATOCRIT 24 % (33-45); HEMOGLOBIN 7.6 g/dL (11.5-14.8); LYMPHOCYTES # (AUTO) 1.1 K/uL (0.8-4.8); LYMPHOCYTES % (AUTO) 18.7 % (20.0-44.0); MEAN CORPUSCULAR HGB CONC 32 g/dl (31.0-36.0); MEAN CORPUSCULAR VOLUME 85 fL (82-100); MONOCYTES # (AUTO) 0.4 K/uL (0.1-1.30); MONOCYTES % (AUTO) 7.3 % (2.0-12.0); NEUTROPHILS # (AUTO) 3.9 K/uL (1.8-8.9); NEUTROPHILS % (AUTO) 65.2 % (43.0-81.0); PLATELET COUNT (AUTO) 371 K/uL (150-450); RED BLOOD CELL COUNT(AUTO) 2.77 MIL/uL (4.0-5.2); WHITE BLOOD COUNT (AUTO) 5.9 K/uL (4.3-11.0)
--- NOTE | 2021-12-31 06:30 | NUR ---
RN NOTES: BS-111 NO INSULIN GIVEN PER SLIDING SCALE
--- NOTE | 2021-12-31 07:30 | NUR ---
MS RN OPENING NOTES: RECEIVED PATIENT AWAKE IN BED. BED IN LOW POSITION CALL LIGHTS WITHIN REACH, NO COMPLAIN OF PAIN AND DISCOMFORT AT THIS TIME, PATIENT IS A/O X1-2 ON RIGHT WRIST RESTRAINT, ON G TUBE FEEDING OF NEPRO @35 ML/HR. HOLD FROM MIDNIGHT FOR BILATERAL REPLACEMENT OF NEPHROSTOMY. WITH ANDREA MID LINE. WITH ONGOING D5 NS@90CC PER HOUR. KEPT HOB ELEVATED FOR SAFETY. BED LOCKED IN THE LOWEST POSITION. CALL LIGHT AND TABLE IN REACH. WILL CONTINUE TO MONITOR.
--- NOTE | 2021-12-31 07:47 | NUR ---
MS RN CLOSING NOTES: RECEIVED PATIENT SLEEP IN BED COMFORTABLY, AROUSABLE TO VERBAL STIMULI, BED IN LOW POSITION, CALL LIGHTS WITHIN REACH, NO COMPLAIN OF PAIN AND DISCOMFORT AT THIS TIME, PATINET ON G TUBE FEEDING OF NEPRO1.8@30 ML PER HOUR INFUSING WELL,WITH ANDREA ML WITH ONGOING 0.9NSS@ 90ML PER HOUR INFUSING WELL, PATIENT IS NPO POST MIDNIGHT DUETO BILATERAL NEPHORSTOMY REPLACEMENTIN AM, ON TI PIECE SATURATING WELL, PATIENT HAS SOFT RIGHT WRIST RESTRAINT DUE TO TENDENCY OF PULLING OUT TRACH T PIECE, PATIENT KEPT CLEAN AND SRY ALL NEEDS MET ENDORSE TO INCOMING SHIFT.
[2021-12-31 08:31] LABS: CALCIUM, SERUM 7.8 mg/dL (8.5-10.1); CREATININE 2.1 mg/dL (0.6-1.3); POTASSIUM 3.1 mmol/L (3.5-5.1)
[2021-12-31] MEDS: INSULIN GLARGINE, 100 UNIT/ML CARTRIDGE SQ SCH ×2 (09:00→21:00)
[2021-12-31] MEDS: FLUDROCORTISONE 0.1 MG TABLET GT SCH (09:10)
[2021-12-31] MEDS: PANTOPRAZOLE 40 MG/PACK PACK GT SCH (09:10)
[2021-12-31] MEDS: TAMSULOSIN 0.4 MG CAP.SR.24H GT SCH ×2 (09:10→22:51)
[2021-12-31] MEDS: CHLORHEXIDINE GLUCONATE 15 ML UDC MM SCH ×2 (09:10→22:51)
[2021-12-31] MEDS: AMLODIPINE BESYLATE 2.5 MG TABLET GT SCH (09:11)
[2021-12-31] MEDS: METOPROLOL TARTRATE 25 MG TABLET GT SCH ×2 (09:11→22:53)
--- NOTE | 2021-12-31 09:34 | NUR ---
am Radiologist is not an IR Md. He doesn't feel comfortable doing the procedure. He will call an IR Md. and make arrangements for one to come in
[2021-12-31] MEDS: POTASSIUM CL. PREMIX PERIPHER. 50 ML IV SCH ×3 (10:24→12:56)
[2021-12-31] MEDS: LEVOFLOXACIN (250MG) 250 MG TABLET PO SCH (10:38)
[2021-12-31 12:00] VITALS: BP 174/104
[2021-12-31] MEDS ORDERED: hydrALAZINE HCL IV 20 MG VIAL IV PRN (14:00)
[2021-12-31] MEDS: NEPRO 1,000 ML BOTTLE GT SCH (16:57)
--- NOTE | 2021-12-31 18:49 | NUR ---
MS RN CLOSING NOTES: PATIENT AWAKE IN BED. BED IN LOW POSITION CALL LIGHTS WITHIN REACH, NO COMPLAIN OF PAIN AND DISCOMFORT AT THIS TIME, PATIENT IS A/O X1-2 ON RIGHT WRIST RESTRAINT, ON G TUBE FEEDING OF NEPRO @35 ML/HR. HOLD FROM MIDNIGHT FOR REPLACEMENT OF NEPHROSTOMY. WITH ANDREA MID LINE. WITH ONGOING D5 NS@90CC PER HOUR. KEPT HOB ELEVATED FOR SAFETY. ALL DUE MEDS GIVEN ORDERED. BED LOCKED IN THE LOWEST POSITION. CALL LIGHT AND TABLE IN REACH. WILL ENDORSE FOR KI.
[2021-12-31 20:00] VITALS: BP 140/82
--- NOTE | 2021-12-31 20:35 | NUR ---
RN NOTE PATIENT ALERT AND ORIENTED X1-2, NON VERBAL. ON T-PIECE @ 5LPM, NO SOB NOTED. NOTED WITH BILATERAL NEPHROSTOMY TUBE SITES, DRAINING URINE. FOR NEPHROSTOMY TUBE REPLACEMENT IN AM, NPO POST MIDNIGHT. GTUBE IN PLACE, NEPRO @ 35ML/HR, NO RESIDUAL NOTED. ANDREA MIDLINE PATENT AND INTACT. BED LOCKED AND IN LOWEST POSITION. CALL LIGHT WITHIN REACH. ALL NEEDS ANTICIPATED.
[2021-12-31] MEDS: TRAZODONE 50 MG TABLET GT SCH (22:51)
[2021-12-31] MEDS: ATORVASTATIN 40 MG TABLET GT SCH (22:51)
[2021-12-31] MEDS: INSULIN REGULAR, HUMAN 100 UNIT/ML 3 ML VIAL SQ PRN (23:04)
[2022-01-01] MEDS: ALBUTEROL FS 2.5 MG/3 ML VIAL.NEB NEB SCH ×4 (01:34→20:27)
[2022-01-01 04:00] VITALS: BP 146/75
[2022-01-01] MEDS: BLOOD SUGAR DIAGNOSTIC 1 EACH STRIP IN SCH ×3 (05:14→17:29)
[2022-01-01] MEDS: INSULIN REGULAR, HUMAN 100 UNIT/ML 3 ML VIAL SQ PRN (05:15)
[2022-01-01 06:48] LABS: BASOPHILS # (AUTO) 0.1 K/uL (0.0-0.2); EOSINOPHILS % (AUTO) 7.3 % (0.0-6.0); HEMATOCRIT 25 % (33-45); HEMOGLOBIN 8.1 g/dL (11.5-14.8); LYMPHOCYTES # (AUTO) 1.3 K/uL (0.8-4.8); LYMPHOCYTES % (AUTO) 21.1 % (20.0-44.0); MEAN CORPUSCULAR HGB CONC 32 g/dl (31.0-36.0); MEAN CORPUSCULAR VOLUME 85 fL (82-100); MONOCYTES # (AUTO) 0.5 K/uL (0.1-1.30); MONOCYTES % (AUTO) 7.9 % (2.0-12.0); NEUTROPHILS % (AUTO) 62.7 % (43.0-81.0); PLATELET COUNT (AUTO) 407 K/uL (150-450); RED BLOOD CELL COUNT(AUTO) 2.96 MIL/uL (4.0-5.2); WHITE BLOOD COUNT (AUTO) 6.4 K/uL (4.3-11.0)
[2022-01-01 07:07] LABS: CALCIUM, SERUM 8.5 mg/dL (8.5-10.1); CREATININE 2.1 mg/dL (0.6-1.3); MAGNESIUM 2.5 mg/dL (1.8-2.4); PHOSPHORUS 3.8 mg/dL (2.5-4.9); POTASSIUM 3.7 mmol/L (3.5-5.1)
--- NOTE | 2022-01-01 07:18 | NUR ---
RN NOTE PATIENT AWAKE IN BEL. ON T-PIECE @ 5LPM, NO SOB NOTED. NOTED WITH BILATERAL NEPHROSTOMY TUBE SITES OUTPUT 400CC. FOR NEPHROSTOMY TUBE REPLACEMENT TODAY. NPO POST MIDNIGHT. GTUBE IN PLACE, NEPRO @ 35ML/HR, NO RESIDUAL NOTED. ANDREA MIDLINE AND LEFT WRIST #20 PATENT AND INTACT. BED LOCKED AND IN LOWEST POSITION. CALL LIGHT WITHIN REACH. WILL ENDORSE TO AM SHIFT.
--- NOTE | 2022-01-01 07:30 | NUR ---
RN OPENING NOTE PATIENT ALERT AND ORIENTED X1-2, NON VERBAL. ON T-PIECE @ 5LPM, NO SOB NOTED. NOTED WITH BILATERAL NEPHROSTOMY TUBE SITES, DRAINING URINE. NEPHROSTOMY TUBE REPLACEMENT SCHEDULED FOR AM. NPO POST MIDNIGHT. GTUBE IN PLACE INTACT AND PATENT. NO RESIDUAL. ANDREA MIDLINE PATENT AND INTACT. BED LOCKED AND IN LOWEST POSITION. CALL LIGHT WITHIN REACH. WILL CONTINUE TO MONITOR.
[2022-01-01] MEDS: INSULIN GLARGINE, 100 UNIT/ML CARTRIDGE SQ SCH ×2 (09:00→21:00)
[2022-01-01] MEDS: FERROUS SULFATE UDC 300 MG/5 ML UDC GT SCH (09:39)
[2022-01-01] MEDS: TAMSULOSIN 0.4 MG CAP.SR.24H GT SCH ×2 (09:39→21:37)
[2022-01-01] MEDS: PANTOPRAZOLE 40 MG/PACK PACK GT SCH (09:39)
[2022-01-01] MEDS: CHLORHEXIDINE GLUCONATE 15 ML UDC MM SCH ×2 (09:39→21:36)
[2022-01-01] MEDS: FLUDROCORTISONE 0.1 MG TABLET GT SCH (09:40)
[2022-01-01] MEDS: AMLODIPINE BESYLATE 2.5 MG TABLET GT SCH (09:40)
[2022-01-01] MEDS: METOPROLOL TARTRATE 25 MG TABLET GT SCH ×2 (09:40→21:37)
[2022-01-01] MEDS: LEVOFLOXACIN (250MG) 250 MG TABLET PO SCH (09:43)
[2022-01-01 12:00] VITALS: BP 133/64
--- NOTE | 2022-01-01 18:49 | NUR ---
RN CLOSING NOTE PATIENT REMAINED STABLE THROUGHOUT SHIFT. PATIENT ALERT AND ORIENTED X1-2, NON VERBAL. ON T-PIECE @ 5LPM, NO SOB NOTED. NOTED WITH BILATERAL NEPHROSTOMY TUBE SITES, L SIDE DRAINING URINE. NEPHROSTOMY TUBE REPLACEMENT SCHEDULED FOR AM. NPO POST MIDNIGHT. GTUBE IN PLACE INTACT AND PATENT. NO RESIDUAL. ANDREA MIDLINE PATENT AND INTACT. BED LOCKED AND IN LOWEST POSITION. CALL LIGHT WITHIN REACH. WILL ENDORSE TO STOCK BLENDER RN.
--- NOTE | 2022-01-01 19:10 | NUR ---
RN OPENING NOTES RECEIVED PATIENT ON BED, AWAKE, NON VERBAL, A/O X 1-2. ON T-PIECE @ 5LPM SATING AT 100%. RESPIRATORY EVEN AND UNLABORED, NO SOB NOTED. REMAIN AFEBRILE. NO S/S OF DISTRESS NOTED. NOTED WITH ANDREA MID LINE AND LEFT WRIST #20 IN LINE INTACT PATENT, FLUSHED WITH NS. NO INFILTRATION NOTED AT SITE. G-TUBE INPLACED, INTACT. VERIFIED PLACEMENT VIA AUSCULTATION, FLUSHED WITH WATER. NO RESIDUAL NOTED UPON ASPIRATION, RUNNING WITH NEPHRO @ 35 ML/HR X 24HRS. KEEP HEAD OF BED ELEVATED. NOTED WITH BILATERAL NEPHROSTOMY, RIGHT SIDE NEPHROSTOMY NOT DRAINING. SAFETY MEASURE PROVIDED. BED IN LOWEST POSITION, LOCKED. BED ALARM ARMED. CONTINUE TO MONITOR.
[2022-01-01 20:00] VITALS: BP 133/73
--- NOTE | 2022-01-01 21:00 | NUR ---
RN NOTES BLOOD SUGAR 118 mg/dL, INSULIN LANTUS HELD, AND ALSO PATIENT WITH BE PLACED NPO POST MID NIGHT FOR PROCEDURE TOMORROW.
[2022-01-01] MEDS: ATORVASTATIN 40 MG TABLET GT SCH (21:37)
[2022-01-01] MEDS: TRAZODONE 50 MG TABLET GT SCH (21:37)
[2022-01-02] MEDS: BLOOD SUGAR DIAGNOSTIC 1 EACH STRIP IN SCH ×3 (00:26→11:59)
[2022-01-02] MEDS: INSULIN REGULAR, HUMAN 100 UNIT/ML 3 ML VIAL SQ PRN (00:28)
--- NOTE | 2022-01-02 00:28 | NUR ---
RN NOTES BLOOD SUGAR 118mg/dL, NO INSULIN COVERAGE PER SLIDING SCALE
[2022-01-02] MEDS: IV NS 0.9% 1,000 ML IV PRN (01:34)
--- NOTE | 2022-01-02 01:43 | NUR ---
RN NOTES REPORT GIVEN TO JOSIE RESENDEZ FOR CONTINUITY OF CARE.
[2022-01-02] MEDS: ALBUTEROL FS 2.5 MG/3 ML VIAL.NEB NEB SCH ×3 (02:02→13:12)
[2022-01-02 04:00] VITALS: BP 144/79
--- NOTE | 2022-01-02 07:12 | NUR ---
RN NOTE PATIENT REMAINED IN STABLE CONDITION. BREATHING EVEN AND UNLABORED. ON T-PIECE 5L/MIN. TOLERATING WELL. OXYGEN SATURATION OF 97%. HOB ELEVATED 35 DEGREES. DRESSING DONE ON BILATERAL NEPHROSTOMY DRAINS. LEFT NEPHROSTOMY DRAINING ADEQUATE YELLOW URINE, RIGHT NEPHROSTOMY NOT DRAINING. NO BLEEDING NOTED. LEFT UPPER ARM MIDLINE INFUSING 90 CC/HR NS. NO INFILTRATION. NO S/S OF HYPO/HYPERGLYCEMIA. PATIENT HAS BEEN NPO SINCE MIDNIGHT. KEPT CLEAN AND DRY. ALL NEEDS ATTENDED. BED LOW, IN LOCKED POSITION, CALL LIGHT WITHIN REACH.
--- NOTE | 2022-01-02 07:14 | NUR ---
ASSISTANT ACTIVITIES DIRECTOR NOTE PT WAS DISCHARGED WITH STABLE VITALS. NO S/SX OF ACUTE DISTRESS NOTED. NO SOB. BREATHING IS EVEN AND UNLABORED. DISCHARGE INSTRUCTIONS REVIEWED WITH PATIENT. IV ACCESS AND ID BAND REMOVED. PT WAS PICKED UP BY AMBULANCE. [facility].
--- NOTE | 2022-01-02 07:30 | NUR ---
RN OPENING NOTE RECEIVED PATIENT AWAKE IN BED. A/O X3, NON-VERBAL. NO S/SX OF ACUTE DISTRESS NOTED. NO SOB. PT IS ON 5L T-PIECE WITH OXYGEN SATURATING AT 98%. BREATHING IS EVEN AND UNLABORED. HOB 35 DEGREES. PT WITH BILATERAL NEPHRO TUBES DRESSING C/D/I. IV ACCESS ANDREA MIDLINE AND LWRIST #20 PATENT AND INTACT WITH NS INFUSING AT 90MLS/HR. SAFETY MEASURES IN PLACE WITH BED LOCKED AT LOW POSITION AND SIDE RAILS UP X 2. CALL LIGHT IS WITHIN REACH. WILL CONTINUE TO MONITOR PATIENT THROUGHOUT SHIFT.
--- NOTE | 2022-01-02 07:40 | NUR ---
RN NOTE PT NOTED WITH R WRIST SOFT RESTRAINT. SKIN AND CIRCULATION CHECK DONE.WILL MONITOR Q15 MINS.
[2022-01-02] MEDS: AMLODIPINE BESYLATE 2.5 MG TABLET GT SCH (08:39)
[2022-01-02] MEDS: PANTOPRAZOLE 40 MG/PACK PACK GT SCH (08:39)
[2022-01-02] MEDS: FLUDROCORTISONE 0.1 MG TABLET GT SCH (08:39)
[2022-01-02] MEDS: TAMSULOSIN 0.4 MG CAP.SR.24H GT SCH (08:39)
[2022-01-02] MEDS: METOPROLOL TARTRATE 25 MG TABLET GT SCH (08:40)
[2022-01-02] MEDS: CHLORHEXIDINE GLUCONATE 15 ML UDC MM SCH (08:40)
[2022-01-02] MEDS: INSULIN GLARGINE, 100 UNIT/ML CARTRIDGE SQ SCH (08:45)
[2022-01-02] MEDS: LEVOFLOXACIN (250MG) 250 MG TABLET PO SCH (09:44)
[2022-01-02] MEDS ORDERED: NALOXONE PREFILLED SYRINGE 2 MG/2 ML SYRINGE IV PRN (10:00)
[2022-01-02] MEDS ORDERED: FLUMAZENIL 0.5 MG VIAL IV PRN (10:00)
[2022-01-02] MEDS: MIDAZOLAM HCL 2 MG/2ML VIAL IV PRN ×2 (11:11→11:12)
[2022-01-02] MEDS: FENTANYL PF 250MCG/5ML AMPUL IV PRN ×2 (11:11→11:12)
[2022-01-02 12:00] VITALS: BP 143/67
--- NOTE | 2022-01-02 12:05 | NUR ---
RN NOTE PT RETURNED FROM NEPHROSTOMY CHANGE. PT WITH STABLE VITALS. NO S/SX OF DISTRESS NOTED. NO SOB. WILL CONTINUE TO MONITOR PATIENT.
--- NOTE | 2022-01-02 12:16 | NUR ---
Female trach patient returned from radiology. Placed back on cool aerosol @ 5LPM. Addendum: 01/02/22 at 1241 by HATTIE MAI RT RT Female trach patient returned from radiology. Placed back on cool aerosol @5LPM
[2022-01-02] MEDS ORDERED: Nepro GT (16:14)
[2022-01-02] MEDS ORDERED: MAG30ORA PO (16:14)
[2022-01-02] MEDS ORDERED: ALBUT2 NEB ×2 (16:14)
[2022-01-02] MEDS ORDERED: INSU100V28 SQ (16:14)
== END 2022-01-02 17:20 | DRG 466 ==
LOC: ER 09:12 → TRANSITION 11:55 → TELE1 12:51 → MEDSG1 12-21 07:49
PROVIDERS: ADMIT Nurse Practitioner Acute Care; ATTEND Registered Nurse
PROC: 05HC33Z Insertion of Infusion Device into Left Basilic Vein, Percutaneous Approach (ICD-10-PCS; 2021-12-18)
PROC: 30233N1 Transfusion of Nonautologous Red Blood Cells into Peripheral Vein, Percutaneous Approach (ICD-10-PCS; principal; 2021-12-19)
PROC: 0T25X0Z Change Drainage Device in Kidney, External Approach (ICD-10-PCS; 2022-01-02)
DX: T83.032A Leakage of nephrostomy catheter, initial encounter (principal); N17.0 Acute kidney failure with tubular necrosis; J96.20 Acute and chronic respiratory failure, unspecified whether with hypoxia or hypercapnia; G93.41 Metabolic encephalopathy; E44.0 Moderate protein-calorie malnutrition; D68.59 Other primary thrombophilia; L89.156 Pressure-induced deep tissue damage of sacral region; E87.1 Hypo-osmolality and hyponatremia; I21.A1 Myocardial infarction type 2; E87.2 Acidosis; E87.0 Hyperosmolality and hypernatremia; N10 Acute pyelonephritis; N13.6 Pyonephrosis; Z99.11 Dependence on respirator [ventilator] status; Z93.0 Tracheostomy status; E11.22 Type 2 diabetes mellitus with diabetic chronic kidney disease; I25.10 Atherosclerotic heart disease of native coronary artery without angina pectoris; N18.9 Chronic kidney disease, unspecified; Z20.822 Contact with and (suspected) exposure to COVID-19; E88.09 Other disorders of plasma-protein metabolism, not elsewhere classified; F03.90 Unspecified dementia, unspecified severity, without behavioral disturbance, psychotic disturbance, mood disturbance, and anxiety; Z79.51 Long term (current) use of inhaled steroids; Z79.02 Long term (current) use of antithrombotics/antiplatelets; Z79.84 Long term (current) use of oral hypoglycemic drugs; Z79.4 Long term (current) use of insulin; Z79.899 Other long term (current) drug therapy; I25.2 Old myocardial infarction; R13.10 Dysphagia, unspecified; Z86.718 Personal history of other venous thrombosis and embolism; Z87.442 Personal history of urinary calculi; E86.1 Hypovolemia; I12.9 Hypertensive chronic kidney disease with stage 1 through stage 4 chronic kidney disease, or unspecified chronic kidney disease; F25.9 Schizoaffective disorder, unspecified; G81.94 Hemiplegia, unspecified affecting left nondominant side; Z74.09 Other reduced mobility; I70.0 Atherosclerosis of aorta; B96.89 Other specified bacterial agents as the cause of diseases classified elsewhere; D64.9 Anemia, unspecified; N20.2 Calculus of kidney with calculus of ureter; Z87.440 Personal history of urinary (tract) infections; Z93.1 Gastrostomy status; B96.20 Unspecified Escherichia coli [E. coli] as the cause of diseases classified elsewhere; Y84.8 Other medical procedures as the cause of abnormal reaction of the patient, or of later complication, without mention of misadventure at the time of the procedure; Y92.129 Unspecified place in nursing home as the place of occurrence of the external cause; E86.9 Volume depletion, unspecified
CPT/HCPCS: 31720; 36410; 36415; 71045-TC; 75989; 80048-TC; 80076-TC; 81001; 82962-TC; 83605-TC; 83735-TC; 84100-TC; 84484-TC; 85025-TC; 85610-TC; 85730-TC; 86850-TC; 87040-TC; 87081-TC; 87086-TC; 87186-TC; 94640-TC; 94799-TC; A7526; G0378; J0696; J1815; J2185; J2250; J2543; J3010; J3370; J3480; J7030; J7040; J7042; J7050; J7060; P9016